=== PATIENT | female | born 1935 | race Caucasian/White ===

== ENCOUNTER 2018-02-14 17:01 | Observation (INO) ==
[2018-02-14 17:42] LABS: Bilirubin,Urine Negative (Negative); Blood,Urine Negative (Negative); Clarity,Urine Clear (Clear); Color,Urine Yellow (Yellow); Glucose,Urine (UA) Normal (Normal); Ketones,Urine Negative (Negative); Leukocyte Esterase,Urine Negative (Negative); Nitrite,Urine Negative (Negative); Protein,Urine Negative (Neg-Trace); Specific Gravity,Urine 1.012 (1.010-1.025); Urobilinogen,Urine Normal (Normal)
--- NOTE | 2018-02-14 18:56 | Emergency Department Note ---
Disposition Clinical Impression: Abdominal pain Qualifiers: Abdominal location: unspecified location Qualified Code(s): R10.9 - Unspecified abdominal pain Fatigue Qualifiers: Fatigue type: unspecified Qualified Code(s): R53.83 - Other fatigue Disposition: Still a Patient Condition: Undetermined Referrals: Radha Purcell, PhD [Primary Care Provider] - Time of Disposition: 18:57 Abdominal Pain HPI - General Chief Complaint: ED Abdominal Pain Stated Complaint: UTI, abd pain Time Seen by Provider: 02/14/18 18:34 Source: patient, family Mode of arrival: ambulatory Limitations: no limitations Nursing Notes Reviewed: Yes Vital Signs Reviewed: Yes - History of Present Illness HPI Narrative: Patient is an 82-year-old female with past medical history of ND, hypertension, hyperlipidemia, diabetes. She presents today due to generalized abdominal pain , distention, concern for UTI. Patient says that for the past 5-6 days, she has had generalized abdominal discomfort worse in the lower abdomen. She says the pain is a dull ache, no radiation anywhere else. She states that she was evaluated by urgent care approximately 5 days ago and had a UA. She was placed on Bactrim and Zofran for UTI. Urine was sent for culture. She admits to occasional nausea but denies any vomiting, diarrhea. She did have some constipation but states that she took a laxative and had a bowel movement this morning. No blood in stool. Denies any current dysuria, hematuria. However, she has continued abdominal pain, distention. Pain Scale: 0 - Related Data Home Medications Medication Instructions Recorded Confirmed ALPRAZolam 02/10/18 Atorvastatin 02/10/18 GlipiZIDE 02/10/18 Lantus 02/10/18 Lasix 02/10/18 Metoprolol 02/10/18 Previous Rx's Medication Instructions Recorded Ondansetron ODT [Zofran ODT] 4 mg SL Q8HR PRN #10 tab.rapdis 02/10/18 Sulfamethoxazole/Trimeth DS 1 each PO BID 10 Days #20 tablet 02/10/18 [Bactrim DS] Allergies Allergy/AdvReac Type Severity Reaction Status Date / Time Penicillins Allergy Anaphylaxis Verified 02/10/18 11:39 All systems ED: reviewed and negative except as stated. Constitutional: Denies: fever Cardiovascular: Denies: chest pain, palpitations Respiratory: Denies: cough, dyspnea, wheezes Gastrointestinal: Reports: abdominal pain, other (abd distention). Denies: nausea, vomiting, diarrhea, constipation, hematemesis, melena, hematochezia Genitourinary: Denies: urgency, dysuria, frequency, hematuria Integumentary: Denies: rash Neurological: Denies: headache, weakness, numbness, paresthesias Endocrine: Reports: fatigue Abdominal Pain PMH - Past Medical History Medical history: Reports: CHF, diabetes, hyperlipidemia, myocardial infarction - Social History Smoking status: Never smoker Alcohol use: Reports: none Drug use: Reports: none Physical Exam - General Limitations: no limitations General appearance: alert, in no apparent distress - Head Head exam: atraumatic, normocephalic, normal inspection - Eye Eye exam: Present: normal appearance, PERRL, EOMI - ENT ENT exam: normal exam, normal oropharynx, mucous membranes moist - Neck Neck exam: Present: normal inspection, full ROM, trachea midline - Chest Chest inspection: Present: normal inspection, symmetric chest wall rise - Respiratory Respiratory exam: Present: normal lung sounds bilaterally - Cardiovascular Cardiovascular exam: Present: regular rate, normal rhythm, normal heart sounds - Abdominal Exam Abdominal exam: Present: soft, tenderness (generalized, mild to moderate tenderness), distention. Absent: guarding, rebound, rigidity Course Course Narrative: Currently concern for UTI versus other intra-abdominal etiology such as diverticulitis or other bowel process. We will obtain basic blood work, LFTs, lipase, CT abdomen and pelvis. We will also obtain EKG, chest x-ray, troponin due to complaints of generalized fatigue, she does have a history of CHF and previous ND. Will sign out to Dr Medrano and Dr. Roca for further care and dispo. Vital Signs Temperature 98.2 F 02/14/18 17:12 Pulse Rate 59 02/14/18 17:12 Respiratory Rate 16 02/14/18 17:12 Blood Pressure 109/64 02/14/18 17:12 O2 Sat by Pulse Oximetry 94 02/14/18 17:12 Temperature 98.2 F 02/14/18 17:12 Pulse Rate 59 02/14/18 17:12 Respiratory Rate 16 02/14/18 17:12 Blood Pressure 109/64 02/14/18 17:12 O2 Sat by Pulse Oximetry 94 02/14/18 17:12 Oxygen Delivery Oxygen Delivery Room Air Abdominal Pain - MDM Narrative Medical decision making narrative: Currently concern for UTI versus other intra-abdominal etiology such as diverticulitis or other bowel process. We will obtain basic blood work, LFTs, lipase, CT abdomen and pelvis. We will also obtain EKG, chest x-ray, troponin due to complaints of generalized fatigue, she does have a history of CHF and previous ND. Will sign out to Dr Medrano and Dr. Roca for further care and dispo. - Medical Records Medical records reviewed: Yes I reviewed the patient's medical records. - Lab Data Lab Results 02/14/18 Range/Units 17:34 Urine Color Yellow (Yellow) Urine Clarity Clear (Clear) Urine pH 6.0 (5.0-8.0) pH Units Ur Specific [place] 1.012 (1.010-1.025) Urine Protein Negative (Neg-Trace) mg/dL Urine Glucose (UA) Normal (Normal) mg/dL Urine Ketones Negative (Negative) mg/dL Urine Blood Negative (Negative) Urine Nitrite Negative (Negative) Urine Bilirubin Negative (Negative) Urine Urobilinogen Normal (Normal) mg/dL Ur Leukocyte Esterase Negative (Negative) S.B.A.R. - S.B.A.R. Situation: Demographics, MOA Background: Presenting Complaint, Relevant PMH, Meds, & Allergies Assessment: Vital Signs, Course and respsone to treatment, Exam Concerns, Patient/Family Expectation, Pertinant Lab Results, Outstanding Labs Recommendation: Barrier(s) to disposition, Recommendation based on pending studies, treatments, or consults S.B.A.R. Report Given to: Dr. Roca, Dr. Medrano S.B.A.R. Repor Time: 18:57
[2018-02-14 19:35] LABS: Basophils % 0.2 %; Eosinophils # 0.3 K/mcL (0.0-0.6); Eosinophils % 3.2 %; Hematocrit 31.8 % (35.3-44.9); Hemoglobin 10.7 g/dL (11.5-15.4); Immature Granulocytes % 0.3 % (0-4); Lymphocytes # 2.2 K/mcL (0.6-4.6); Lymphocytes % 24.4 %; Mean Corpuscular HGB Conc 33.6 g/dL (31.6-35.5); Mean Corpuscular Hemoglobin 31.2 pg (28.0-33.3); Mean Corpuscular Volume 92.7 fL (83.0-100.0); Mean Platelet Volume 10.2 fL (9.4-12.4); Monocytes # 0.7 K/mcL (0.0-1.3); Monocytes % 7.4 %; Neutrophils # 5.7 K/mcL (1.6-8.9); Platelet Count 250 K/mcL (140-400); Red Blood Count 3.43 M/mcL (3.82-4.97); Red Cell Distribution Width 13.8 % (11.5-14.5); Segmented Neutrophils % 64.5 %
[2018-02-14 19:59] LABS: Troponin I < 0.03 ng/mL (< 0.04)
[2018-02-14 20:00] LABS: Alanine Aminotransferase 25 Units/L (7-52); Albumin 4.1 g/dL (3.5-5.7); Albumin/Globulin Ratio 1.5 (1.1-2.2); Alkaline Phosphatase 43 Units/L (34-104); Amylase 112 Units/L (29-103); Aspartate Amino Transferase 27 Units/L (13-39); BUN/Creatinine Ratio 15 (6-26); Bilirubin,Indirect 0.3 mg/dL (0.0-1.2); Bilirubin,Total 0.3 mg/dL (0.3-1.0); Blood Urea Nitrogen 24 mg/dL (8-23); Calcium 9.8 mg/dL (8.6-10.3); Carbon Dioxide 23 mEq/L (23-29); Chloride 105 mEq/L (98-107); Globulin 2.8 g/dL (2.4-3.5); Glucose 141 mg/dL (70-105); Lipase 292 Units/L (11-82); Osmolality,Calculated 286 (280-300); Potassium 4.2 mEq/L (3.5-5.1); Sodium 135 mEq/L (136-145); Total Protein 6.9 g/dL (6.4-8.9); eGFR For Non-African Americans 31 (> 60)
--- NOTE | 2018-02-14 20:16 | Emergency Department Note ---
Disposition Clinical Impression: Pancreatitis Abdominal pain Qualifiers: Abdominal location: unspecified location Qualified Code(s): R10.9 - Unspecified abdominal pain Fatigue Qualifiers: Fatigue type: unspecified Qualified Code(s): R53.83 - Other fatigue Disposition: Admitted As Inpatient Condition: Undetermined Referrals: Radha Purcell, PhD [Primary Care Provider] - Forms: ED Satisfaction Letter, Work/School Release Time of Disposition: 20:15 Abdominal Pain HPI - General Chief Complaint: ED Abdominal Pain Stated Complaint: UTI, abd pain Time Seen by Provider: 02/14/18 18:34 Source: patient, family Mode of arrival: ambulatory - History of Present Illness Pain Scale: 0 - Related Data Allergies Allergy/AdvReac Type Severity Reaction Status Date / Time Penicillins Allergy Anaphylaxis Verified 02/10/18 11:39 Constitutional: Denies: fever Cardiovascular: Denies: chest pain, palpitations Respiratory: Denies: cough, dyspnea, wheezes Gastrointestinal: Reports: abdominal pain, other (abd distention). Denies: nausea, vomiting, diarrhea, constipation, hematemesis, melena, hematochezia Genitourinary: Denies: urgency, dysuria, frequency, hematuria Integumentary: Denies: rash Neurological: Denies: headache, weakness, numbness, paresthesias Endocrine: Reports: fatigue Abdominal Pain PMH - Past Medical History Medical history: Reports: CHF, diabetes, hyperlipidemia, myocardial infarction - Social History Smoking status: Never smoker Alcohol use: Reports: none Drug use: Reports: none Physical Exam - General Limitations: no limitations General appearance: alert, in no apparent distress Course - Reevaluation(s) Reevaluation #1: Patient signed out from Dr. Helton and Annette pending workup. Patient presenting with a few day history of abdominal pain. Was treated as an outpatient for urinary tract infection. States her urinary symptoms, etc. resolved but she still has epigastric abdominal pain. Lab work showed an elevated amylase and lipase consistent with pancreatitis. The non-contrast CT of her abdomen did not show any stranding or pancreatic necrosis or other abdominal abnormality. She has a history of CHF and insulin-dependent diabetes. The patient will be admitted for likely MRCP to rule out underlying mass. We will also admit for pain control and further workup of her abdominal distention. Accepted by the hospitalist service. Time: 20:14 Vital Signs Temperature 98.2 F 02/14/18 17:12 Pulse Rate 59 02/14/18 17:12 Respiratory Rate 16 02/14/18 17:12 Blood Pressure 109/64 02/14/18 17:12 O2 Sat by Pulse Oximetry 94 02/14/18 17:12 Temperature 98.2 F 02/14/18 17:12 Pulse Rate 53 02/14/18 19:55 Respiratory Rate 18 02/14/18 19:55 Blood Pressure 123/61 02/14/18 19:55 O2 Sat by Pulse Oximetry 93 02/14/18 19:55 Oxygen Delivery Oxygen Delivery Room Air Abdominal Pain - Lab Data Result diagrams: 02/14/18 19:15 02/14/18 19:15 Lab Results 02/14/18 02/14/18 02/14/18 Range/Units 17:34 19:15 19:15 WBC 8.8 (4.3-11.1) K/mcL RBC 3.43 L (3.82-4.97) M/mcL Hgb 10.7 L (11.5-15.4) g/dL Hct 31.8 L (35.3-44.9) % MCV 92.7 (83.0-100.0) fL MCH 31.2 (28.0-33.3) pg MCHC 33.6 (31.6-35.5) g/dL RDW 13.8 (11.5-14.5) % Plt Count 250 (140-400) K/mcL MPV 10.2 (9.4-12.4) fL Immature Gran % 0.3 (0-4) % Seg Neutrophils % 64.5 % Lymphocytes % 24.4 % Monocytes % 7.4 % Eosinophils % 3.2 % Basophils % 0.2 % Neutrophils # 5.7 (1.6-8.9) K/mcL Lymphocytes # 2.2 (0.6-4.6) K/mcL Monocytes # 0.7 (0.0-1.3) K/mcL Eosinophils # 0.3 (0.0-0.6) K/mcL Basophils # 0.0 (0.0-0.2) K/mcL Sodium 135 L (136-145) mEq/L Potassium 4.2 (3.5-5.1) mEq/L Chloride 105 (98-107) mEq/L Carbon Dioxide 23 (23-29) mEq/L BUN 24 H (8-23) mg/dL Creatinine 1.58 H (0.60-1.20) mg/dL Est GFR ( Amer) 38 L (> 60) Est GFR (Non-Af Amer) 31 L (> 60) BUN/Creatinine Ratio 15 (6-26) Glucose 141 H (70-105) mg/dL Calculated Osmolality 286 (280-300) Calcium 9.8 (8.6-10.3) mg/dL Total Bilirubin 0.3 (0.3-1.0) mg/dL Direct Bilirubin 0.0 (0.0-0.2) mg/dL Indirect Bilirubin 0.3 (0.0-1.2) mg/dL AST 27 (13-39) Units/L ALT 25 (7-52) Units/L Alkaline Phosphatase 43 (34-104) Units/L Troponin I < 0.03 (< 0.04) ng/mL Serum Total Protein 6.9 (6.4-8.9) g/dL Albumin 4.1 (3.5-5.7) g/dL Globulin 2.8 (2.4-3.5) g/dL Albumin/Globulin Ratio 1.5 (1.1-2.2) Amylase 112 H (29-103) Units/L Lipase 292 H (11-82) Units/L Urine Color Yellow (Yellow) Urine Clarity Clear (Clear) Urine pH 6.0 (5.0-8.0) pH Units Ur Specific [place] 1.012 (1.010-1.025) Urine Protein Negative (Neg-Trace) mg/dL Urine Glucose (UA) Normal (Normal) mg/dL Urine Ketones Negative (Negative) mg/dL Urine Blood Negative (Negative) Urine Nitrite Negative (Negative) Urine Bilirubin Negative (Negative) Urine Urobilinogen Normal (Normal) mg/dL Ur Leukocyte Esterase Negative (Negative)
--- NOTE | 2018-02-14 20:19 | Emergency Department Note ---
Disposition Clinical Impression: Pancreatitis Abdominal pain Qualifiers: Abdominal location: unspecified location Qualified Code(s): R10.9 - Unspecified abdominal pain Fatigue Qualifiers: Fatigue type: unspecified Qualified Code(s): R53.83 - Other fatigue Disposition: Admitted As Inpatient Condition: Undetermined Referrals: Radha Purcell, PhD [Primary Care Provider] - Forms: ED Satisfaction Letter, Work/School Release General Adult HPI - General Chief complaint: ED Abdominal Pain Stated complaint: UTI, abd pain Time Seen by Provider: 02/14/18 18:34 Source: patient, family Mode of arrival: ambulatory Limitations: no limitations - History of Present Illness Pain Scale: 0 - Related Data Allergies Allergy/AdvReac Type Severity Reaction Status Date / Time Penicillins Allergy Anaphylaxis Verified 02/10/18 11:39 Constitutional: Denies: fever Cardiovascular: Denies: chest pain, palpitations Respiratory: Denies: cough, dyspnea, wheezes Gastrointestinal: Reports: abdominal pain, other (abd distention). Denies: nausea, vomiting, diarrhea, constipation, hematemesis, melena, hematochezia Genitourinary: Denies: urgency, dysuria, frequency, hematuria Integumentary: Denies: rash Neurological: Denies: headache, weakness, numbness, paresthesias Endocrine: Reports: fatigue Past Medical History - Past Medical History Medical history: Reports: CHF, diabetes, hyperlipidemia, myocardial infarction - Social History Smoking Status: Never smoker Smokeless Tobacco Status: No Alcohol use: Reports: none Drug use: Reports: none Physical Exam - General Limitations: no limitations General appearance: alert, in no apparent distress Course Vital Signs Temperature 98.2 F 02/14/18 17:12 Pulse Rate 59 02/14/18 17:12 Respiratory Rate 16 02/14/18 17:12 Blood Pressure 109/64 02/14/18 17:12 O2 Sat by Pulse Oximetry 94 02/14/18 17:12 Temperature 98.2 F 02/14/18 17:12 Pulse Rate 53 02/14/18 19:55 Respiratory Rate 18 02/14/18 19:55 Blood Pressure 123/61 02/14/18 19:55 O2 Sat by Pulse Oximetry 93 02/14/18 19:55 Oxygen Delivery Oxygen Delivery Room Air Medical Decision Making - Lab Data Result diagrams: 02/14/18 19:15 02/14/18 19:15 Lab Results 02/14/18 02/14/18 02/14/18 Range/Units 17:34 19:15 19:15 WBC 8.8 (4.3-11.1) K/mcL RBC 3.43 L (3.82-4.97) M/mcL Hgb 10.7 L (11.5-15.4) g/dL Hct 31.8 L (35.3-44.9) % MCV 92.7 (83.0-100.0) fL MCH 31.2 (28.0-33.3) pg MCHC 33.6 (31.6-35.5) g/dL RDW 13.8 (11.5-14.5) % Plt Count 250 (140-400) K/mcL MPV 10.2 (9.4-12.4) fL Immature Gran % 0.3 (0-4) % Seg Neutrophils % 64.5 % Lymphocytes % 24.4 % Monocytes % 7.4 % Eosinophils % 3.2 % Basophils % 0.2 % Neutrophils # 5.7 (1.6-8.9) K/mcL Lymphocytes # 2.2 (0.6-4.6) K/mcL Monocytes # 0.7 (0.0-1.3) K/mcL Eosinophils # 0.3 (0.0-0.6) K/mcL Basophils # 0.0 (0.0-0.2) K/mcL Sodium 135 L (136-145) mEq/L Potassium 4.2 (3.5-5.1) mEq/L Chloride 105 (98-107) mEq/L Carbon Dioxide 23 (23-29) mEq/L BUN 24 H (8-23) mg/dL Creatinine 1.58 H (0.60-1.20) mg/dL Est GFR ( Amer) 38 L (> 60) Est GFR (Non-Af Amer) 31 L (> 60) BUN/Creatinine Ratio 15 (6-26) Glucose 141 H (70-105) mg/dL Calculated Osmolality 286 (280-300) Calcium 9.8 (8.6-10.3) mg/dL Total Bilirubin 0.3 (0.3-1.0) mg/dL Direct Bilirubin 0.0 (0.0-0.2) mg/dL Indirect Bilirubin 0.3 (0.0-1.2) mg/dL AST 27 (13-39) Units/L ALT 25 (7-52) Units/L Alkaline Phosphatase 43 (34-104) Units/L Troponin I < 0.03 (< 0.04) ng/mL Serum Total Protein 6.9 (6.4-8.9) g/dL Albumin 4.1 (3.5-5.7) g/dL Globulin 2.8 (2.4-3.5) g/dL Albumin/Globulin Ratio 1.5 (1.1-2.2) Amylase 112 H (29-103) Units/L Lipase 292 H (11-82) Units/L Urine Color Yellow (Yellow) Urine Clarity Clear (Clear) Urine pH 6.0 (5.0-8.0) pH Units Ur Specific [place] 1.012 (1.010-1.025) Urine Protein Negative (Neg-Trace) mg/dL Urine Glucose (UA) Normal (Normal) mg/dL Urine Ketones Negative (Negative) mg/dL Urine Blood Negative (Negative) Urine Nitrite Negative (Negative) Urine Bilirubin Negative (Negative) Urine Urobilinogen Normal (Normal) mg/dL Ur Leukocyte Esterase Negative (Negative) Attestation Statement - Attestation Attestation: I examined this patient and my medical decision-making was reviewed with the Resident Physician. I agree with the documented findings, disposition and treatment plan as described except to the extent set forth below. Patient presents to the ED with abdominal pain and bloating. She was signed out by Dr. Helton. CT does not show acute process. She has had an elevated amylase and lipase. Patient will be admitted for further workup.
[2018-02-14] MEDS ORDERED: 0.9 % Sodium Chloride 500 ML IVC ONE (21:08)
[2018-02-14] MEDS ORDERED: 0.9 % Sodium Chloride 1,000 ML IVC SCH (21:15)
[2018-02-15] MEDS ORDERED: 0.9 % Sodium Chloride 1,000 ML IVC SCH ×2 (01:15→01:47)
[2018-02-15] MEDS ORDERED: ALPRAZolam 0.5 MG TABLET PO PRN (01:38)
[2018-02-15] MEDS ORDERED: INSULIN GLARGINE HUM REC ANLOG U SQ SCH (01:45)
[2018-02-15] MEDS ORDERED: [UNRECOGNIZED DRUG - OTHER] SQ SCH (01:45)
[2018-02-15] MEDS ORDERED: Dextrose Gel 15 GM/37.5 ML TUBE PO PRN ×2 (01:48)
[2018-02-15] MEDS ORDERED: D5% in Water 1,000 ML IVC PRN (01:48)
[2018-02-15] MEDS ORDERED: *HR* Dextrose 50 % in Water (Syg) 50 ML SYRINGE IVP PRN (01:48)
[2018-02-15] MEDS ORDERED: Naloxone 0.4 MG/ML INJ IVP PRN (02:15)
[2018-02-15] MEDS ORDERED: *HR* HYDROcodone/Acet 5/325 mg TABLET PO PRN (02:15)
[2018-02-15] MEDS ORDERED: Acetaminophen 325 MG TABLET PO PRN (02:15)
--- NOTE | 2018-02-15 02:23 | Internal Med History&Physical ---
Date of Encounter: 02/15/18 Time of Encounter: 02:20 Internal Medicine - H&P: HPI Chief complaint: "Abdominal pain" Admitted From: Emergency Dept Plans for Post Hospital Care: Home History of present illness: Ms. Frankel is a 82 year old female who presented to ED today for abdominal pain. She states that she recently went to ED in [place] several day ago for same symptoms and was diagnosed with UTI. She was sent home on Bactrim and zofran. She completed course of Bactrim. She started having abdominal pain again today , so her daughter brought her to ED here. She states that she had bowel movement earlier, and abdominal pain is now completely resolved. She denies fever, chills, chest pain, SOB, nausea, vomiting, and dysuria. In the ED, CT abdomen was unremarkable for acute pathology. UA was unremarkable. Labwork was notable for increased creatinine to 1.58, increase amylase to 112, and increased lipase to 292. She denies any prior history of kidney disease or pancreatitis. She has no complaints at this time. Past Med Surg Social Fam HX - Past Medical History Attestation: Yes The following information was validated with the patient. Source: patient Medical history: CHF, diabetes, hyperlipidemia, myocardial infarction Psychiatric history: no psych history - Past Surgical History Surgical History: appendectomy, hysterectomy Additional surgical history: heart stent x1 - Social History Smoking Status: Never smoker Smokeless Tobacco Status: No Alcohol use: none Drug use: none - Family History Mother Hx Family Cancer: Yes (uterine) Father Hx Family Cancer: Yes (colon) - Additional Family History Additional family history: Family history verified with patient. Internal Medicine - H&P: Meds ALPRAZolam [Xanax 0.5 MG Tablet] 0.5 mg PO TID PRN 02/14/18 [History] Ascorbic Acid [Vitamin C] 500 mg PO DAILY 02/14/18 [History] Aspirin Enteric Coated [Aspirin EC] 81 mg PO DAILY 02/14/18 [History] Atorvastatin [Lipitor] 40 mg PO HS 02/14/18 [History] Cholecalciferol (D-3) [Vitamin D] 5,000 unit PO DAILY 02/14/18 [History] Fish Oil/Dha/Epa [Fish Oil 1,200 mg Fish Oil] 1 cap PO BID 02/14/18 [History] Furosemide [Lasix] 20 mg PO DAILY 02/14/18 [History] Insulin Glargine,Hum.rec.anlog [Lantus Solostar] 5 units SQ BID 02/14/18 [ History] Metoprolol [Lopressor] 25 mg PO DAILY 02/14/18 [History] Sitagliptin Phosphate [Januvia] 50 mg PO DAILY 02/14/18 [History] Vitamin B Complex Vit C No.4 [Super B Complex] 1 tab PO DAILY 02/14/18 [History] glipiZIDE [Glipizide] 10 mg PO BID 02/14/18 [History] 3 Allergy/AdvReac Type Severity Reaction Status Date / Time Penicillins Allergy Anaphylaxis Verified 02/10/18 11:39 All Systems PM: A 10-system review of systems was performed and is negative for pertinent findings except as documented above in the HPI. - Constitutional Vitals: Temp Pulse Resp BP Pulse Ox 97.7 F 56 18 121/54 97 02/15/18 00:06 02/15/18 00:06 02/15/18 00:06 02/15/18 00:06 02/15/18 00:06 General appearance: Present: cooperative, A&O X 3, pleasant, no acute distress, answers questions appropriately - Head Head exam: Present: atraumatic, normocephalic - Eye Eye exam: Present: EOMI, PERRL. Absent: conjunctival injection, nystagmus, scleral icterus - ENT ENT exam: Present: mucous membranes moist, normal external ear exam, normal oropharynx - Neck Neck exam general surgery: Present: supple, trachea midline. Absent: lymphadenopathy, tenderness, thyromegaly - Respiratory Respiratory exam: Present: CTAB. Absent: accessory muscle use, rales, rhonchi, wheezes Additional comments: Normal WOB - Cardiovascular Cardiovascular exam: Present: RRR, +S1, +S2. Absent: diastolic murmur, gallop, rubs, systolic murmur Additional comments: No BLE edema - GI/Abdominal GI/Abdominal exam: Present: normal bowel sounds, soft. Absent: distended, guarding, hepatomegaly, mass, rebound, splenomegaly, tenderness - Neurological Exam Neurological exam: Present: alert, CN II-XII intact, oriented X3, no focal deficits, strengths equal and symetr throughout. Absent: motor sensory deficit , facial droop, speech deficit - Psychiatric Psychiatric exam: Present: normal affect, normal mood. Absent: agitated, anxious, depressed - Skin Skin exam: Present: dry, intact, warm. Absent: cyanosis, rash Internal Med - H&P Results - Labs CBC & Chem 7: 02/14/18 19:15 02/14/18 19:15 - Assessment and plan (1) Pancreatitis Current Visit: Yes Status: Suspected Assessment and plan: Suspected due to abdominal pain and elevated amylase/lipase. CT abdomen unremarkable. Possibly secondary to Bactrim use. Currently without pain, nausea, and vomiting. NPO except PO medications; trial of diet in AM. Start IV NS at 75 ml/hr; monitor fluid status closely given history of CHF. Pain control with tylenol and norco PRN. Zofran IV PRN for nausea/vomiting. Recheck labwork in AM. Qualifiers: Chronicity: acute Pancreatitis type: drug induced Acute pancreatitis complication: no infection or necrosis Qualified Code(s): K85.30 - Drug induced acute pancreatitis without necrosis or infection (2) Acute kidney injury Current Visit: Yes Status: Acute Assessment and plan: Continue gentle hydration as per above. Recheck BMP in AM. (3) Type 2 diabetes mellitus without complication Current Visit: Yes Status: Chronic Assessment and plan: Start accuchecks and moderate dose SSI Q6H. Continue home long-acting insulin. Hold home PO DM medications. 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 Qualifiers: Heart failure type: unspecified Qualified Code(s): I50.9 - Heart failure, unspecified (5) CAD (coronary artery disease) Current Visit: Yes Status: Chronic Assessment and plan: Continue home medications. Qualifiers: Coronary Disease-Associated Artery/Lesion type: unspecified vessel or lesion type [place] vs. transplanted heart: unspecified whether [place] or transplanted heart Associated angina: angina presence unspecified Qualified Code(s): I25.10 - Atherosclerotic heart disease of [place] coronary artery without angina pectoris (6) HTN (hypertension) Current Visit: Yes Status: Chronic Assessment and plan: Continue home medications. Qualifiers: Hypertension type: essential hypertension Qualified Code(s): I10 - Essential (primary) hypertension (7) Anxiety Current Visit: Yes Status: Chronic Assessment and plan: Continue home medications. (8) DVT prophylaxis Current Visit: Yes Status: Acute Assessment and plan: Start SCDs and lovenox 30 mg SQ QD. - Time Spent With Patient Total time spent is greater than 50% in coordination of care (as documented) at patient's floor/unit and/or counseling patient: less than 15 minutes
[2018-02-15] MEDS ORDERED: Ondansetron 4 MG/2 ML VIAL IVP PRN (02:27)
[2018-02-15] MEDS: Insulin DETEMIR 100 UNIT/ML X5UNITS SQ SCH ×2 (02:58→10:31)
[2018-02-15] MEDS: [Fish Oil 1,200 Mg PO SCH ×2 (02:59→08:25)
[2018-02-15 05:16] LABS: Basophils % 0.5 %; Eosinophils # 0.4 K/mcL (0.0-0.6); Hematocrit 30.1 % (35.3-44.9); Hemoglobin 9.9 g/dL (11.5-15.4); Immature Granulocytes % 0.3 % (0-4); Lymphocytes # 2.1 K/mcL (0.6-4.6); Lymphocytes % 35.3 %; Mean Corpuscular HGB Conc 32.9 g/dL (31.6-35.5); Mean Corpuscular Hemoglobin 30.8 pg (28.0-33.3); Mean Corpuscular Volume 93.8 fL (83.0-100.0); Monocytes # 0.5 K/mcL (0.0-1.3); Neutrophils # 2.8 K/mcL (1.6-8.9); Platelet Count 214 K/mcL (140-400); Red Blood Count 3.21 M/mcL (3.82-4.97); Segmented Neutrophils % 48.9 %
[2018-02-15 05:34] LABS: Potassium 3.9 mEq/L (3.5-5.1)
[2018-02-15] MEDS ORDERED: *HR* Enoxaparin 30 MG/0.3 ML SYRINGE SQ SCH (06:00)
[2018-02-15 06:38] LABS: Estimated Average Glucose 212 mg/dl
[2018-02-15] MEDS: Insulin LISPRO 300 UNITS/3 ML VIAL SQ SCH ×2 (08:14→12:03)
[2018-02-15] MEDS ORDERED: Aspirin Enteric Coated 81 MG Tablet PO SCH (09:00)
[2018-02-15] MEDS ORDERED: Ascorbic Acid 500 MG TABLET PO SCH (09:00)
[2018-02-15] MEDS ORDERED: Cholecalciferol (D-3) 1,000 UNIT TABLET PO SCH (09:00)
[2018-02-15] MEDS ORDERED: Vitamin B Complex/Vit C/Vit E 1 EACH TABLET PO SCH (09:00)
[2018-02-15 11:48] VITALS: BP 130/58
--- NOTE | 2018-02-15 13:07 | Physician Discharge Referral ---
Home Health/Hosp Referral Info Transfer to: Home Health Provider in Charge Post Discharge: PCP (Patient requires nursing needs.) - Respiratory Orders Smoking Cessation: Smoking cessation has been advised. For more information, call the [place] Tobacco Quit Line at 8-579-YNOB-NOW. - Transfer Medications Home Medications: ALPRAZolam [Xanax 0.5 MG Tablet] 0.5 mg PO TID PRN 02/14/18 [History] Ascorbic Acid [Vitamin C] 500 mg PO DAILY 02/14/18 [History] Aspirin Enteric Coated [Aspirin EC] 81 mg PO DAILY 02/14/18 [History] Atorvastatin [Lipitor] 40 mg PO HS 02/14/18 [History] Cholecalciferol (D-3) [Vitamin D] 5,000 unit PO DAILY 02/14/18 [History] Fish Oil/Dha/Epa [Fish Oil 1,200 mg Fish Oil] 1 cap PO BID 02/14/18 [History] Furosemide [Lasix] 20 mg PO DAILY 02/14/18 [History] Insulin Glargine,Hum.rec.anlog [Lantus Solostar] 5 units SQ BID 02/14/18 [ History] Metoprolol [Lopressor] 25 mg PO DAILY 02/14/18 [History] Sitagliptin Phosphate [Januvia] 50 mg PO DAILY 02/14/18 [History] Vitamin B Complex Vit C No.4 [Super B Complex] 1 tab PO DAILY 02/14/18 [History] glipiZIDE [Glipizide] 10 mg PO BID 02/14/18 [History] Allergies/Adverse Reactions: 3 Allergy/AdvReac Type Severity Reaction Status Date / Time Penicillins Allergy Anaphylaxis Verified 02/10/18 11:39 Certification: Further, I certify that my clinical findings support that this patient is homebound (i.e. absences from home require considerable and taxing effort and are for medical reasons or congregational services or infrequently or short duration when for other reasons) because: Homebound Reason: Patient requires assistance of a person or device to safely leave home (Requires nursing needs) Attestation: My signature below is to certify that this patient is under my care and that I, or nurse practitioner, or a physician's construction management assistant working with me, has a face-to -face encounter with this patient.
--- NOTE | 2018-02-15 13:33 | Discharge Summary ---
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 transplanted heart: unspecified whether lummi or transplanted heart Associated angina: angina presence unspecified Qualified Code(s): I25.10 - Atherosclerotic heart disease of [place] coronary artery without angina pectoris (6) HTN (hypertension) Priority: Secondary Status: Chronic Qualifiers: Hypertension type: essential hypertension Qualified Code(s): I10 - Essential (primary) hypertension (7) Anxiety Priority: Secondary Status: Chronic (8) DVT prophylaxis Priority: Secondary Status: Acute Hospital course: Ms. Frankel is a 82 year old female who presented to the emergency department treatment and abdominal pain. Patient was found to have an elevated lipase and was subsequently admitted to observation for pancreatitis. Patient received IV fluids and lipase resolved and the patient abdominal pain resolved. The patient was started on a diet and tolerated it without abdominal pain. CT of the abdomen was negative for any acute findings. Patient was stable for discharge on 02/15/2018. Patient and daughter present and agreeable to plan. All questions answered. Discharge discussed with: patient, family, nurse - Time Spent with Patient Total time spent providing and/or coordinating discharge services: Greater than 30 minutes - Discharge Medications Home Medications: ALPRAZolam [Xanax 0.5 MG Tablet] 0.5 mg PO TID PRN 02/14/18 [History] Ascorbic Acid [Vitamin C] 500 mg PO DAILY 02/14/18 [History] Aspirin Enteric Coated [Aspirin EC] 81 mg PO DAILY 02/14/18 [History] Atorvastatin [Lipitor] 40 mg PO HS 02/14/18 [History] Cholecalciferol (D-3) [Vitamin D] 5,000 unit PO DAILY 02/14/18 [History] Fish Oil/Dha/Epa [Fish Oil 1,200 mg Fish Oil] 1 cap PO BID 02/14/18 [History] Furosemide [Lasix] 20 mg PO DAILY 02/14/18 [History] Insulin Glargine,Hum.rec.anlog [Lantus Solostar] 5 units SQ BID 02/14/18 [ History] Metoprolol [Lopressor] 25 mg PO DAILY 02/14/18 [History] Sitagliptin Phosphate [Januvia] 50 mg PO DAILY 02/14/18 [History] Vitamin B Complex Vit C No.4 [Super B Complex] 1 tab PO DAILY 02/14/18 [History] glipiZIDE [Glipizide] 10 mg PO BID 02/14/18 [History] Allergies/Adverse Reactions: 3 Allergy/AdvReac Type Severity Reaction Status Date / Time Penicillins Allergy Anaphylaxis Verified 02/10/18 11:39 Date of admission: 02/14/18 23:41 Primary care physician: Radha Purcell Consults: 02/15/18 12:51 Consult to Car Sealer [CONS] Routine Reason for Consult: d/c planning - Constitutional Vitals: Temp Pulse Resp BP Pulse Ox 98.3 F 51 14 130/58 94 02/15/18 11:45 02/15/18 11:45 02/15/18 11:45 02/15/18 11:45 02/15/18 11:45 General appearance: Present: cooperative, A&O X 3, pleasant, no acute distress, answers questions appropriately Exam: Constitutional: No acute distress, Alert Psych: AAO x 3 HEENT: NCAT, EOMI Cardio: regular rate and rhythm, +s1s2, no murmurs/rubs/ronchi Resp: clear to ascultation bilaterally, no wheezes/rales/ronchi Abd: soft, non tender/non distended, positive bowel sounds, no gaurding/reboud/ ridgitity; very benign exam Extremities: no clubbing/cyanosis/edema appreciated - Patient Status Disposition: Home Health Service Condition: Good Functional capacity at discharge: independent ambulation Overall status at discharge: patient is back to baseline - Discharge Instructions Follow Up With: Radha Purcell, PhD [Primary Care Provider] - - Diet and Activity Activity: increase activity as tolerated Diet: advance to your usual diet - VTE Documentation of Mechanical Device: Intermittent pneumatic compression device
--- NOTE | 2018-02-15 16:35 | Electrocardiograph Report ---
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
== END 2018-02-15 15:03 | disposition home health service (06) ==
LOC: EMEROO 17:01 → 3NENU 17:01 → SUATTDRO 23:41 → 3NENU 23:49
PROVIDERS: ADMIT Family Medicine; ATTEND Internal Medicine

== ENCOUNTER 2018-03-11 07:59 | Observation (INO) ==
--- NOTE | 2018-03-11 08:37 | Emergency Department Note ---
Disposition Clinical Impression: Fall Qualifiers: Encounter type: initial encounter Qualified Code(s): W19.XXXA - Unspecified fall, initial encounter Syncope Qualifiers: Syncope type: unspecified Qualified Code(s): R55 - Syncope and collapse Anemia Qualifiers: Anemia type: unspecified type Qualified Code(s): D64.9 - Anemia, unspecified Disposition: Admitted As Inpatient Condition: Fair Referrals: Radha Purcell, PhD [Primary Care Provider] - Forms: ED Satisfaction Letter Time of Disposition: 09:34 General Adult HPI - General Chief complaint: ED Dizziness Stated complaint: fall, dizziness Time Seen by Provider: 03/11/18 08:05 Source: patient Mode of arrival: wheelchair Limitations: no limitations Nursing Notes Reviewed: Yes Vital Signs Reviewed: Yes - History of Present Illness HPI Narrative: 82-year-old female with history of diabetes, hypertension presents for evaluation of a fall. Patient describes the fall occurred earlier this morning. States she was otherwise well and was ambulating to the restroom. Patient states that she was in the restroom and felt dizzy and lightheaded. Patient states she may have passed out prior to the fall but did fall back striking her head. Patient denies any prolonged periods of immobility. Denies any chest pain. No shortness of breath. Daughter at bedside states this is been multiple falls within a 2 to three-week time period. Patient states she fell approximately 3 weeks ago and was having persistent right shoulder pain. Patient denies any abdominal pain. No back pain. Patient denies any dizziness currently. No fevers. Denies being on any blood thinners. Patient typically ambulates with a walker. Pain Scale: 0 - Related Data Home Medications Medication Instructions Recorded Confirmed ALPRAZolam [Xanax 0.5 MG Tablet] 0.5 mg PO TID PRN 02/14/18 03/11/18 Ascorbic Acid [Vitamin C] 500 mg PO DAILY 02/14/18 03/11/18 Aspirin Enteric Coated [Aspirin EC] 81 mg PO DAILY 02/14/18 03/11/18 Atorvastatin [Lipitor] 40 mg PO HS 02/14/18 03/11/18 Cholecalciferol (D-3) [Vitamin D] 5,000 unit PO DAILY 02/14/18 03/11/18 Fish Oil/Dha/Epa [Fish Oil 1,200 1 cap PO BID 02/14/18 03/11/18 mg Fish Oil] Furosemide [Lasix] 20 mg PO DAILY 02/14/18 03/11/18 Insulin Glargine,Hum.rec.anlog 5 units SQ BID 02/14/18 03/11/18 [Lantus Solostar] Metoprolol [Lopressor] 25 mg PO DAILY 02/14/18 03/11/18 Vitamin B Complex Vit C No.4 1 tab PO DAILY 02/14/18 03/11/18 [Super B Complex] glipiZIDE [Glipizide] 10 mg PO BID 02/14/18 03/11/18 Allergies Allergy/AdvReac Type Severity Reaction Status Date / Time Penicillins Allergy Anaphylaxis Verified 02/10/18 11:39 All systems ED: reviewed and negative except as stated. Constitutional: Denies: fever Cardiovascular: Denies: chest pain Respiratory: Denies: cough, dyspnea Gastrointestinal: Denies: abdominal pain, nausea, vomiting Past Medical History - Past Medical History Source: patient Medical history: Reports: CHF, diabetes, hyperlipidemia, myocardial infarction Surgical history: Reports: appendectomy, hysterectomy Psychiatric history: Reports: no psych history - Social History Smoking Status: Never smoker Smokeless Tobacco Status: No Alcohol use: Reports: none Drug use: Reports: none Physical Exam - General Limitations: no limitations General appearance: alert, in no apparent distress - Head Head exam: atraumatic, normocephalic, normal inspection - Eye Eye exam: Present: normal appearance, EOMI - ENT ENT exam: normal exam, mucous membranes moist - Neck Neck exam: Present: normal inspection, full ROM. Absent: tenderness - Chest Chest inspection: Present: normal inspection, symmetric chest wall rise - Respiratory Respiratory exam: Present: normal lung sounds bilaterally. Absent: respiratory distress - Cardiovascular Cardiovascular exam: Present: regular rate, normal rhythm. Absent: systolic murmur - Abdominal Exam Abdominal exam: Present: soft, Non-Tender - Extremities Exam Extremities exam: Present: normal inspection. Absent: pedal edema - Expanded Lower Extremity Exam Neurovascular/Tendon exam: Present: normal capillary refill - Back Exam Back exam: Present: normal inspection - Neurological Exam Neurological exam: Present: alert, oriented X3, CN II-XII intact - Expanded Neurological Exam Patient oriented to: Present: person, place, time Speech: Present: fluid speech Cranial nerves: EOM function (II, III, IV, ): Normal, facial sensation (V): Normal, facial palsy (VII): Normal, spinal accessory function (XI): Normal, tongue deviation (XII): Normal Cerebellar function: finger to nose: Normal Motor strength - LUE: 5/5 Motor strength - RUE: 5/5 Motor strength - LLE: 5/5 Motor strength - RLE: 5/5 Coma Scale Eye Opening: Spontaneous Coma Scale Motor Response: Obeys Commands Coma Scale Verbal Response: Oriented Coma Scale Total: 15 - Skin Skin exam: Present: warm, dry, intact, normal color Course Course Narrative: Patient seen and examined. Patient has a nonfocal neurologic exam. Patient's symptoms are mostly consistent with syncope or near syncope in the setting of a fall. Patient will receive CT of the head and cervical spine. Also cardiopulmonary screening evaluation with EKG, chest x-ray troponin. Disposition pending. - Reevaluation(s) Reevaluation #1: Patient seen and examined. Resting currently. Asymptomatic. Discuss ED workup with patient and family at bedside. Patient likely had syncopal episode prior to the fall. Patient will be admitted for further evaluation. Family is agreeable with this plan of care. Time: 09:32 Vital Signs Temperature 97.9 F 03/11/18 08:02 Pulse Rate 67 03/11/18 08:02 Respiratory Rate 15 03/11/18 08:02 Blood Pressure 131/68 03/11/18 08:02 O2 Sat by Pulse Oximetry 96 03/11/18 08:02 Temperature 97.9 F 03/11/18 08:11 Pulse Rate 67 03/11/18 08:11 Respiratory Rate 15 03/11/18 08:11 Blood Pressure 131/68 03/11/18 08:11 O2 Sat by Pulse Oximetry 96 03/11/18 08:11 Oxygen Delivery Oxygen Delivery Room Air Medical Decision Making - [facility] Narrative Medical decision making narrative: 82-year-old female persists for evaluation of a fall. It appears that the patient did have some syncope symptoms prior to the fall. Patient reported dizziness however the patient was feeling more lightheaded. No chest pain. No dyspnea. Patient has had multiple falls within the past 2-3 weeks. Patient does live at home with family. Patient denies any back pain. Patient had a ED evaluation which included CT of the head and cervical spine. Chest x-ray as well as a right shoulder x-ray given right shoulder pain over the past couple weeks. Patient's labs reveal anemia which is likely chronic. Given the syncopal episode as well as recurrent falls the patient will be admitted for further syncope evaluation. - Lab Data Lab results reviewed: Yes I reviewed the patient's lab results. Result diagrams: 03/11/18 08:46 03/11/18 08:46 Lab Results 03/11/18 03/11/18 03/11/18 Range/Units 08:14 08:46 08:46 WBC 8.6 (4.3-11.1) K/mcL RBC 3.60 L (3.82-4.97) M/mcL Hgb 11.2 L (11.5-15.4) g/dL Hct 33.3 L (35.3-44.9) % MCV 92.5 (83.0-100.0) fL MCH 31.1 (28.0-33.3) pg MCHC 33.6 (31.6-35.5) g/dL RDW 13.8 (11.5-14.5) % Plt Count 264 (140-400) K/mcL MPV 10.2 (9.4-12.4) fL Immature Gran % 0.3 (0-4) % Seg Neutrophils % 59.7 % Lymphocytes % 24.6 % Monocytes % 8.0 % Eosinophils % 6.9 % Basophils % 0.5 % Neutrophils # 5.1 (1.6-8.9) K/mcL Lymphocytes # 2.1 (0.6-4.6) K/mcL Monocytes # 0.7 (0.0-1.3) K/mcL Eosinophils # 0.6 (0.0-0.6) K/mcL Basophils # 0.0 (0.0-0.2) K/mcL Sodium 137 (136-145) mEq/L Potassium 4.1 (3.5-5.1) mEq/L Chloride 103 (98-107) mEq/L Carbon Dioxide 28 (23-29) mEq/L BUN 19 (8-23) mg/dL Creatinine 1.06 (0.60-1.20) mg/dL Est GFR ( Amer) > 60 (> 60) Est GFR (Non-Af Amer) 50 L (> 60) BUN/Creatinine Ratio 18 (6-26) Glucose 229 H (70-105) mg/dL Calculated Osmolality 294 (280-300) Calcium 10.0 (8.6-10.3) mg/dL Troponin I < 0.03 (< 0.04) ng/mL B-Natriuretic Peptide (Less than 100) pg/mL Ur Specimen Adequacy See below A Urine Color Yellow (Yellow) Urine Clarity Clear (Clear) Urine pH 5.0 (5.0-8.0) pH Units Ur Specific [place] 1.013 (1.010-1.025) Urine Protein Negative (Neg-Trace) mg/dL Urine Glucose (UA) Normal (Normal) mg/dL Urine Ketones Negative (Negative) mg/dL Urine Blood Negative (Negative) Urine Nitrite Negative (Negative) Urine Bilirubin Negative (Negative) Urine Urobilinogen Normal (Normal) mg/dL Ur Leukocyte Esterase Trace H (Negative) Urine Microscopic RBC 0-3 (0-3) per hpf Urine Microscopic WBC 0-3 (0-3) per hpf Ur Squamous Epith Cells Many H (None-Few) per lpf Urine Bacteria None Seen (None-Few) per hpf Hyaline Casts None Seen (None-Few) per lpf 03/11/18 Range/Units 08:46 WBC (4.3-11.1) K/mcL RBC (3.82-4.97) M/mcL Hgb (11.5-15.4) g/dL Hct (35.3-44.9) % MCV (83.0-100.0) fL MCH (28.0-33.3) pg MCHC (31.6-35.5) g/dL RDW (11.5-14.5) % Plt Count (140-400) K/mcL MPV (9.4-12.4) fL Immature Gran % (0-4) % Seg Neutrophils % % Lymphocytes % % Monocytes % % Eosinophils % % Basophils % % Neutrophils # (1.6-8.9) K/mcL Lymphocytes # (0.6-4.6) K/mcL Monocytes # (0.0-1.3) K/mcL Eosinophils # (0.0-0.6) K/mcL Basophils # (0.0-0.2) K/mcL Sodium (136-145) mEq/L Potassium (3.5-5.1) mEq/L Chloride (98-107) mEq/L Carbon Dioxide (23-29) mEq/L BUN (8-23) mg/dL Creatinine (0.60-1.20) mg/dL Est GFR ( Amer) (> 60) Est GFR (Non-Af Amer) (> 60) BUN/Creatinine Ratio (6-26) Glucose (70-105) mg/dL Calculated Osmolality (280-300) Calcium (8.6-10.3) mg/dL Troponin I (< 0.04) ng/mL B-Natriuretic Peptide 86 (Less than 100) pg/mL Ur Specimen Adequacy Urine Color (Yellow) Urine Clarity (Clear) Urine pH (5.0-8.0) pH Units Ur Specific [place] (1.010-1.025) Urine Protein (Neg-Trace) mg/dL Urine Glucose (UA) (Normal) mg/dL Urine Ketones (Negative) mg/dL Urine Blood (Negative) Urine Nitrite (Negative) Urine Bilirubin (Negative) Urine Urobilinogen (Normal) mg/dL Ur Leukocyte Esterase (Negative) Urine Microscopic RBC (0-3) per hpf Urine Microscopic WBC (0-3) per hpf Ur Squamous Epith Cells (None-Few) per lpf Urine Bacteria (None-Few) per hpf Hyaline Casts (None-Few) per lpf - Radiology Data Radiology results reviewed: Yes I reviewed the patient's radiology results. Cervical Spine CT 03/11/18 08:34 IMPRESSION: 1. No acute fracture of the cervical spine evident. 2. Multilevel degenerative changes of the cervical spine most severe at C5-C6 where there is mild spinal canal stenosis and severe bilateral neural foraminal narrowing. D/ / 03/11/2018 09:34:39 Jaylan Hill MD / [email or web address] Interpreting Provider: Jaylan Hill MD Chest X-Ray 03/11/18 08:34 IMPRESSION: No acute cardiopulmonary process identified. D/ / Jaylan Hill MD / Jaylan Hill MD Interpreting Provider: Jaylan Hill MD Shoulder X-Ray 03/11/18 08:34 IMPRESSION: 1. No acute fracture or dislocation the right shoulder evident. 2. High riding humeral head suggesting a chronic right rotator cuff tear. 3. Moderate degenerative changes of the right acromioclavicular joint. D/ / Jaylan Hill MD / Jaylan Hill MD Interpreting Provider: Jaylan Hill MD Cervical Spine CT 03/11/18 08:34 IMPRESSION: 1. No acute fracture of the cervical spine evident. 2. Multilevel degenerative changes of the cervical spine most severe at C5-C6 where there is mild spinal canal stenosis and severe bilateral neural foraminal narrowing. D/ / 03/11/2018 09:34:39 Jaylan Hill MD / julien Interpreting Provider: Jaylan Hill MD Chest X-Ray 03/11/18 08:34 IMPRESSION: No acute cardiopulmonary process identified. D/ / Jaylan Hill MD / Jaylan Hill MD Interpreting Provider: Jaylan Hill MD Head CT 03/11/18 08:34 IMPRESSION: No acute intracranial abnormality. Mild cerebral atrophy and small vessel ischemic changes in the white matter. D/ / Santhosh Rosario MD / Santhosh Rosario MD Interpreting Provider: Santhosh Rosario MD Shoulder X-Ray 03/11/18 08:34 IMPRESSION: 1. No acute fracture or dislocation the right shoulder evident. 2. High riding humeral head suggesting a chronic right rotator cuff tear. 3. Moderate degenerative changes of the right acromioclavicular joint. D/ / Jaylan Hill MD / Jaylan Hill MD Interpreting Provider: Jaylan Hill MD - EKG Data EKG #1 EKG attestation: Yes I reviewed and interpreted this EKG. EKG shows normal: sinus rhythm Rate: normal Rhythm: NSR [place]/QRS: normal Q waves: v1 Interpretation: no acute changes, unchanged when compared to prior tracing (date ), nonspecific ST-T wave changes S.B.A.R. - S.B.A.Isaiah Situation: Demographics Background: Presenting Complaint Assessment: Vital Signs, Course and respsone to treatment, Patient/Family Expectation Recommendation: Barrier(s) to disposition, Recommendation based on pending studies, treatments, or consults S.B.A.RHodan Report Given to: Dr. Tyrone VillarealARudy Repor Time: 09:41
[2018-03-11 08:43] LABS: Bilirubin,Urine Negative (Negative); Blood,Urine Negative (Negative); Clarity,Urine Clear (Clear); Color,Urine Yellow (Yellow); Glucose,Urine (UA) Normal (Normal); Ketones,Urine Negative (Negative); Leukocyte Esterase,Urine Trace (Negative); Nitrite,Urine Negative (Negative); Protein,Urine Negative (Neg-Trace); Specific Gravity,Urine 1.013 (1.010-1.025); Urobilinogen,Urine Normal (Normal)
[2018-03-11 08:45] LABS: Bacteria,Urine None Seen per hpf (None-Few); Hyaline Casts,Urine None Seen per lpf (None-Few); RBC,Urine 0-3 per hpf (0-3); Squamous Epithelial Cell,Urine Many per lpf (None-Few); WBC,Urine 0-3 per hpf (0-3)
[2018-03-11 08:56] LABS: Basophils % 0.5 %; Eosinophils # 0.6 K/mcL (0.0-0.6); Eosinophils % 6.9 %; Hematocrit 33.3 % (35.3-44.9); Hemoglobin 11.2 g/dL (11.5-15.4); Immature Granulocytes % 0.3 % (0-4); Lymphocytes # 2.1 K/mcL (0.6-4.6); Lymphocytes % 24.6 %; Mean Corpuscular HGB Conc 33.6 g/dL (31.6-35.5); Mean Corpuscular Hemoglobin 31.1 pg (28.0-33.3); Mean Corpuscular Volume 92.5 fL (83.0-100.0); Mean Platelet Volume 10.2 fL (9.4-12.4); Monocytes # 0.7 K/mcL (0.0-1.3); Neutrophils # 5.1 K/mcL (1.6-8.9); Platelet Count 264 K/mcL (140-400); Red Cell Distribution Width 13.8 % (11.5-14.5); Segmented Neutrophils % 59.7 %
[2018-03-11 09:17] LABS: BUN/Creatinine Ratio 18 (6-26); Blood Urea Nitrogen 19 mg/dL (8-23); Carbon Dioxide 28 mEq/L (23-29); Chloride 103 mEq/L (98-107); Glucose 229 mg/dL (70-105); Osmolality,Calculated 294 (280-300); Potassium 4.1 mEq/L (3.5-5.1); Sodium 137 mEq/L (136-145); Troponin I < 0.03 ng/mL (< 0.04); eGFR For Non-African Americans 50 (> 60)
--- NOTE | 2018-03-11 09:37 | Emergency Department Note ---
Disposition Clinical Impression: Anemia Fall Qualifiers: Encounter type: initial encounter Qualified Code(s): W19.XXXA - Unspecified fall, initial encounter Syncope Qualifiers: Syncope type: unspecified Qualified Code(s): R55 - Syncope and collapse Disposition: Admitted As Inpatient Condition: Fair General Adult HPI - General Chief complaint: ED Dizziness Stated complaint: fall, dizziness Time Seen by Provider: 03/11/18 08:05 Source: patient Mode of arrival: wheelchair Limitations: no limitations Nursing Notes Reviewed: Yes Vital Signs Reviewed: Yes - History of Present Illness Pain Scale: 0 - Related Data Home Medications Medication Instructions Recorded Confirmed ALPRAZolam [Xanax 0.5 MG Tablet] 0.5 mg PO TID PRN 02/14/18 03/11/18 Ascorbic Acid [Vitamin C] 500 mg PO DAILY 02/14/18 03/11/18 Aspirin Enteric Coated [Aspirin EC] 81 mg PO DAILY 02/14/18 03/11/18 Atorvastatin [Lipitor] 40 mg PO HS 02/14/18 03/11/18 Cholecalciferol (D-3) [Vitamin D] 5,000 unit PO DAILY 02/14/18 03/11/18 Fish Oil/Dha/Epa [Fish Oil 1,200 1 cap PO BID 02/14/18 03/11/18 mg Fish Oil] Furosemide [Lasix] 20 mg PO DAILY 02/14/18 03/11/18 Insulin Glargine,Hum.rec.anlog 5 units SQ BID 02/14/18 03/11/18 [Lantus Solostar] Metoprolol [Lopressor] 25 mg PO DAILY 02/14/18 03/11/18 Vitamin B Complex Vit C No.4 1 tab PO DAILY 02/14/18 03/11/18 [Super B Complex] glipiZIDE [Glipizide] 10 mg PO BID 02/14/18 03/11/18 Allergies Allergy/AdvReac Type Severity Reaction Status Date / Time Penicillins Allergy Anaphylaxis Verified 02/10/18 11:39 Constitutional: Denies: fever Cardiovascular: Denies: chest pain Respiratory: Denies: cough, dyspnea Gastrointestinal: Denies: abdominal pain, nausea, vomiting Past Medical History - Past Medical History Medical history: Reports: CHF, diabetes, hyperlipidemia, myocardial infarction Surgical history: Reports: appendectomy, hysterectomy Psychiatric history: Reports: no psych history - Social History Smoking Status: Never smoker Smokeless Tobacco Status: No Alcohol use: Reports: none Drug use: Reports: none Physical Exam - General Limitations: no limitations General appearance: alert, in no apparent distress Course Vital Signs Temperature 97.9 F 03/11/18 08:02 Pulse Rate 67 03/11/18 08:02 Respiratory Rate 15 03/11/18 08:02 Blood Pressure 131/68 03/11/18 08:02 O2 Sat by Pulse Oximetry 96 03/11/18 08:02 Temperature 97.9 F 03/11/18 08:11 Pulse Rate 57 03/11/18 09:57 Respiratory Rate 18 03/11/18 09:57 Blood Pressure 133/69 03/11/18 09:57 O2 Sat by Pulse Oximetry 97 03/11/18 09:57 Oxygen Delivery Oxygen Delivery Room Air Medical Decision Making - MDM Narrative Medical decision making narrative: Cervical Spine CT 03/11/18 08:34 IMPRESSION: 1. No acute fracture of the cervical spine evident. 2. Multilevel degenerative changes of the cervical spine most severe at C5-C6 where there is mild spinal canal stenosis and severe bilateral neural foraminal narrowing. D/ / 03/11/2018 09:34:39 Jaylan Hill MD / [email or web address] Interpreting Provider: Jaylan Hill MD Chest X-Ray 03/11/18 08:34 IMPRESSION: No acute cardiopulmonary process identified. D/ / Jaylan Hill MD / Jaylan Hill MD Interpreting Provider: Jaylan Hill MD Head CT 03/11/18 08:34 IMPRESSION: No acute intracranial abnormality. Mild cerebral atrophy and small vessel ischemic changes in the white matter. D/ / Santhosh Rosario MD / Santhosh Rosario MD Interpreting Provider: Santhosh Rosraio MD Shoulder X-Ray 03/11/18 08:34 IMPRESSION: 1. No acute fracture or dislocation the right shoulder evident. 2. High riding humeral head suggesting a chronic right rotator cuff tear. 3. Moderate degenerative changes of the right acromioclavicular joint. D/ / Jaylan Hill MD / Jaylan Hill MD Interpreting Provider: Jaylan Hill MD 1000 hrs.: Hospitalist as accepted patient for admission. - Lab Data Result diagrams: 03/11/18 08:46 03/11/18 08:46 Lab Results 03/11/18 03/11/18 03/11/18 Range/Units 08:14 08:46 08:46 WBC 8.6 (4.3-11.1) K/mcL RBC 3.60 L (3.82-4.97) M/mcL Hgb 11.2 L (11.5-15.4) g/dL Hct 33.3 L (35.3-44.9) % MCV 92.5 (83.0-100.0) fL MCH 31.1 (28.0-33.3) pg MCHC 33.6 (31.6-35.5) g/dL RDW 13.8 (11.5-14.5) % Plt Count 264 (140-400) K/mcL MPV 10.2 (9.4-12.4) fL Immature Gran % 0.3 (0-4) % Seg Neutrophils % 59.7 % Lymphocytes % 24.6 % Monocytes % 8.0 % Eosinophils % 6.9 % Basophils % 0.5 % Neutrophils # 5.1 (1.6-8.9) K/mcL Lymphocytes # 2.1 (0.6-4.6) K/mcL Monocytes # 0.7 (0.0-1.3) K/mcL Eosinophils # 0.6 (0.0-0.6) K/mcL Basophils # 0.0 (0.0-0.2) K/mcL Sodium 137 (136-145) mEq/L Potassium 4.1 (3.5-5.1) mEq/L Chloride 103 (98-107) mEq/L Carbon Dioxide 28 (23-29) mEq/L BUN 19 (8-23) mg/dL Creatinine 1.06 (0.60-1.20) mg/dL Est GFR ( Amer) > 60 (> 60) Est GFR (Non-Af Amer) 50 L (> 60) BUN/Creatinine Ratio 18 (6-26) Glucose 229 H (70-105) mg/dL Calculated Osmolality 294 (280-300) Calcium 10.0 (8.6-10.3) mg/dL Troponin I < 0.03 (< 0.04) ng/mL B-Natriuretic Peptide (Less than 100) pg/mL Ur Specimen Adequacy See below A Urine Color Yellow (Yellow) Urine Clarity Clear (Clear) Urine pH 5.0 (5.0-8.0) pH Units Ur Specific [place] 1.013 (1.010-1.025) Urine Protein Negative (Neg-Trace) mg/dL Urine Glucose (UA) Normal (Normal) mg/dL Urine Ketones Negative (Negative) mg/dL Urine Blood Negative (Negative) Urine Nitrite Negative (Negative) Urine Bilirubin Negative (Negative) Urine Urobilinogen Normal (Normal) mg/dL Ur Leukocyte Esterase Trace H (Negative) Urine Microscopic RBC 0-3 (0-3) per hpf Urine Microscopic WBC 0-3 (0-3) per hpf Ur Squamous Epith Cells Many H (None-Few) per lpf Urine Bacteria None Seen (None-Few) per hpf Hyaline Casts None Seen (None-Few) per lpf 03/11/18 Range/Units 08:46 WBC (4.3-11.1) K/mcL RBC (3.82-4.97) M/mcL Hgb (11.5-15.4) g/dL Hct (35.3-44.9) % MCV (83.0-100.0) fL MCH (28.0-33.3) pg MCHC (31.6-35.5) g/dL RDW (11.5-14.5) % Plt Count (140-400) K/mcL MPV (9.4-12.4) fL Immature Gran % (0-4) % Seg Neutrophils % % Lymphocytes % % Monocytes % % Eosinophils % % Basophils % % Neutrophils # (1.6-8.9) K/mcL Lymphocytes # (0.6-4.6) K/mcL Monocytes # (0.0-1.3) K/mcL Eosinophils # (0.0-0.6) K/mcL Basophils # (0.0-0.2) K/mcL Sodium (136-145) mEq/L Potassium (3.5-5.1) mEq/L Chloride (98-107) mEq/L Carbon Dioxide (23-29) mEq/L BUN (8-23) mg/dL Creatinine (0.60-1.20) mg/dL Est GFR ( Amer) (> 60) Est GFR (Non-Af Amer) (> 60) BUN/Creatinine Ratio (6-26) Glucose (70-105) mg/dL Calculated Osmolality (280-300) Calcium (8.6-10.3) mg/dL Troponin I (< 0.04) ng/mL B-Natriuretic Peptide 86 (Less than 100) pg/mL Ur Specimen Adequacy Urine Color (Yellow) Urine Clarity (Clear) Urine pH (5.0-8.0) pH Units Ur Specific [place] (1.010-1.025) Urine Protein (Neg-Trace) mg/dL Urine Glucose (UA) (Normal) mg/dL Urine Ketones (Negative) mg/dL Urine Blood (Negative) Urine Nitrite (Negative) Urine Bilirubin (Negative) Urine Urobilinogen (Normal) mg/dL Ur Leukocyte Esterase (Negative) Urine Microscopic RBC (0-3) per hpf Urine Microscopic WBC (0-3) per hpf Ur Squamous Epith Cells (None-Few) per lpf Urine Bacteria (None-Few) per hpf Hyaline Casts (None-Few) per lpf Attestation Statement - Attestation Attestation: Patient seen and evaluated on arrival with family and Dr. Moctezuma, I agree with his evaluation and management plan I supervised the care the patient's stay. Patient had a fall at home. It sounds that she had a syncopal episode prior to the fall. She said she hit the bathtub but no injuries. She had shoulder pain the other day. But none today. Her daughter said this is about the third time this is happened. She did have a syncopal episode so we will do a workup on her and probably admission. She is in agreement with this plan as his family.
[2018-03-11] MEDS ORDERED: Naloxone 0.4 MG/ML INJ IVP PRN (10:28)
[2018-03-11] MEDS ORDERED: Dextrose Gel 15 GM/37.5 ML TUBE PO PRN ×2 (10:33)
[2018-03-11] MEDS ORDERED: *HR* Dextrose 50 % in Water (Syg) 50 ML SYRINGE IVP PRN (10:33)
[2018-03-11] MEDS ORDERED: D5% in Water 1,000 ML IVC PRN (10:33)
--- NOTE | 2018-03-11 11:07 | Internal Med History&Physical ---
Date of Encounter: 03/11/18 Time of Encounter: 10:00 Internal Medicine - H&P: HPI Chief complaint: Dizziness and fall Admitted From: Home Plans for Post Hospital Care: Home History of present illness: Ms. Frankel is a 82 year old female present to ER for dizziness and fall. Past medical history is significant for diabetes, CAD S/P stent, hypertension. Patient felt dizziness in the morning when she went to the bathroom. Patient fell and hit her head. Patient denies loss of consciousness. Pt denies feeling of hungry, palpitation, or diaphoresis. Right after fall, she checked her own blood sugar level, which was 181. Patient has recent frequent fall at home per family. No loss of consciousness. Patient denies chest pain, shortness of breath. Patient has mild nausea earlier but not now. Patient has no vomiting. Patient denies recent diarrhea. In the emergency room, head and C -spine CT has been done, unremarkable. Patient was admitted for near syncope and frequent fall. Past Med Surg Social Fam HX - Past Medical History Medical history: CHF, diabetes, hyperlipidemia, myocardial infarction Psychiatric history: no psych history - Past Surgical History Surgical History: appendectomy, hysterectomy Additional surgical history: stent x1 - Social History Smoking Status: Never smoker Smokeless Tobacco Status: No Alcohol use: none Drug use: none - Family History Mother Hx Family Cancer: Yes (uterine) Father Hx Family Cancer: Yes (colon) Internal Medicine - H&P: Meds ALPRAZolam [Xanax 0.5 MG Tablet] 0.5 mg PO TID PRN 02/14/18 [History] Ascorbic Acid [Vitamin C] 500 mg PO DAILY 02/14/18 [History] Aspirin Enteric Coated [Aspirin EC] 81 mg PO DAILY 02/14/18 [History] Atorvastatin [Lipitor] 40 mg PO HS 02/14/18 [History] Cholecalciferol (D-3) [Vitamin D] 5,000 unit PO DAILY 02/14/18 [History] Fish Oil/Dha/Epa [Fish Oil 1,200 mg Fish Oil] 1 cap PO BID 02/14/18 [History] Furosemide [Lasix] 20 mg PO DAILY 02/14/18 [History] Insulin Glargine,Hum.rec.anlog [Lantus Solostar] 5 units SQ BID 02/14/18 [ History] Metoprolol [Lopressor] 25 mg PO DAILY 02/14/18 [History] Vitamin B Complex Vit C No.4 [Super B Complex] 1 tab PO DAILY 02/14/18 [History] glipiZIDE [Glipizide] 10 mg PO BID 02/14/18 [History] 3 Allergy/AdvReac Type Severity Reaction Status Date / Time Penicillins Allergy Anaphylaxis Verified 02/10/18 11:39 All Systems PM: A 10-system review of systems was performed and is negative for pertinent findings except as documented above in the HPI. - Constitutional Vitals: Temp Pulse Resp BP Pulse Ox 97.1 F L 59 18 143/54 97 03/11/18 10:44 03/11/18 10:44 03/11/18 10:44 03/11/18 10:44 03/11/18 10:44 General appearance: Present: A&O X 3, no acute distress, answers questions appropriately Exam: Patient lays on bed comfortably - Head Head exam: Present: atraumatic, normocephalic - Eye Eye exam: Present: PERRL, conjuntiva pink, sclera anicteric Pupils: Present: PERRL - Neck Neck exam general surgery: Present: supple, trachea midline. Absent: lymphadenopathy - Respiratory Respiratory exam: Present: CTAB. Absent: accessory muscle use, rales, rhonchi, wheezes - Cardiovascular Cardiovascular exam: Present: RRR, +S1, +S2. Absent: diastolic murmur, gallop, rubs, systolic murmur - GI/Abdominal GI/Abdominal exam: Present: normal bowel sounds, soft, no peritoneal signs. Absent: distended, tenderness - Extremities Exam Extremities exam: Present: warm, radial pulses palpable and symmetrical. Absent : calf tenderness, cyanotic, pedal edema - Neurological Exam Neurological exam: Present: CN II-XII intact, oriented X3, no focal deficits. Absent: pronater drift, facial droop, speech deficit - Skin Skin exam: Present: dry, intact Internal Med - H&P Results - Labs CBC & Chem 7: 03/11/18 08:46 03/11/18 08:46 - Assessment and plan (1) Near syncope Current Visit: Yes Status: Acute Assessment and plan: Patient has near syncope. Need to rule out cardio/neuro disease. Patient has no focal neuro deficit. - Continue cardiac monitoring to rule out arrhythmia - Echocardiogram to rule out valve disease, pulmonary hypertension, or other cardio problem. - Duplex carotid to rule out stenosis - Orthostatic vitals to rule out orthostatic hypotension (2) Fall Current Visit: Yes Status: Acute Assessment and plan: PTOT evaluation. Fall precaution Qualifiers: Encounter type: initial encounter Qualified Code(s): W19.XXXA - Unspecified fall, initial encounter (3) DVT prophylaxis Current Visit: No Status: Acute Assessment and plan: Heparin subcutaneously (4) CAD (coronary artery disease) Current Visit: No Status: Chronic Assessment and plan: Denies chest pain. Continue home medications Qualifiers: Coronary Disease-Associated Artery/Lesion type: unspecified vessel or lesion type [place] vs. transplanted heart: unspecified whether [place] or transplanted heart Associated angina: angina presence unspecified Qualified Code(s): I25.10 - Atherosclerotic heart disease of [place] coronary artery without angina pectoris (5) HTN (hypertension) Current Visit: No Status: Chronic Assessment and plan: Continue home medications. Closely monitor BP. Avoid hypotension Qualifiers: Hypertension type: essential hypertension Qualified Code(s): I10 - Essential (primary) hypertension (6) Type 2 diabetes mellitus without complication Current Visit: No Status: Chronic Assessment and plan: Place patient on sliding scale insulin coverage Qualifiers: Diabetes mellitus terminal operator insulin use: with terminal operator use Qualified Code( s): E11.9 - Type 2 diabetes mellitus without complications; Z79.4 - intermediate designer ( current) use of insulin - Time Spent With Patient Total time spent is greater than 50% in coordination of care (as documented) at patient's floor/unit and/or counseling patient: 30 minutes 25 - 35 minutes
[2018-03-11] MEDS: Insulin LISPRO 300 UNITS/3 ML VIAL SQ SCH ×2 (11:55→16:59)
[2018-03-11] MEDS: Acetaminophen 325 MG TABLET PO PRN (13:56)
--- NOTE | 2018-03-11 15:40 | Electrocardiograph Report ---
[place] [id number] Test Date: 2018-03-11 Pat Name: Emily Frankel Department: Room: 3B21 Gender: F [employer] Att[employer]: : 1935 Requested By: Antonio Dai Order Number: [id number] Reading MD: Jd Martinez Measurements Intervals [place] Rate: 56 P: 65 [place]: 154 QRS: -18 QRSD: 104 T: 63 QT: 429 QTc: 414 Interpretive Statements Sinus rhythm Atrial premature complexes Borderline left axis deviation Low voltage, precordial leads Electronically Signed On 03-11-2018 15:38:05 EDT by Jd Martinez
[2018-03-11] MEDS: *HR* Heparin 5,000 UNIT/ML VIAL SQ SCH (16:59)
[2018-03-11] MEDS: ALPRAZolam 0.5 MG TABLET PO PRN (20:18)
[2018-03-11] MEDS: (Fish Oil/Dha/Epa [Fish Oil 1,200 Mg Fish Oil] 1 CAP) PO SCH (20:18)
[2018-03-11] MEDS ORDERED: Insulin LISPRO 300 UNITS/3 ML VIAL SQ SCH (21:00)
[2018-03-12] MEDS: *HR* Heparin 5,000 UNIT/ML VIAL SQ SCH ×2 (05:35→17:54)
[2018-03-12 06:31] LABS: Basophils % 0.6 %; Eosinophils # 0.4 K/mcL (0.0-0.6); Eosinophils % 7.8 %; Hematocrit 30.1 % (35.3-44.9); Hemoglobin 9.8 g/dL (11.5-15.4); Immature Granulocytes % 0.4 % (0-4); Lymphocytes # 1.9 K/mcL (0.6-4.6); Lymphocytes % 35.9 %; Mean Corpuscular HGB Conc 32.6 g/dL (31.6-35.5); Mean Platelet Volume 10.1 fL (9.4-12.4); Monocytes # 0.5 K/mcL (0.0-1.3); Monocytes % 8.4 %; Neutrophils # 2.5 K/mcL (1.6-8.9); Platelet Count 244 K/mcL (140-400); Red Blood Count 3.27 M/mcL (3.82-4.97); Red Cell Distribution Width 13.8 % (11.5-14.5); Segmented Neutrophils % 46.9 %
[2018-03-12 06:54] LABS: Calcium 9.5 mg/dL (8.6-10.3); Potassium 4.1 mEq/L (3.5-5.1)
[2018-03-12] MEDS: Insulin LISPRO 300 UNITS/3 ML VIAL SQ SCH ×4 (08:22→19:31)
[2018-03-12] MEDS: Ascorbic Acid 500 MG TABLET PO SCH (08:24)
[2018-03-12] MEDS: Vitamin B Complex/Vit C/Vit E 1 EACH TABLET PO SCH (08:24)
[2018-03-12] MEDS: Aspirin Enteric Coated 81 MG Tablet PO SCH (08:24)
[2018-03-12] MEDS: (Fish Oil/Dha/Epa [Fish Oil 1,200 Mg Fish Oil] 1 CAP) PO SCH ×2 (08:24→19:57)
[2018-03-12] MEDS: Furosemide 20 MG TABLET PO SCH (08:24)
[2018-03-12] MEDS: ALPRAZolam 0.5 MG TABLET PO PRN ×2 (12:23→19:56)
--- NOTE | 2018-03-12 16:36 | Internal Med Progress Note ---
Hospitalist Progress Note - Encounter Date of Encounter: 03/12/18 Time of Encounter: 16:34 - Subjective Interval History: Patient seen and examined at bedside today. No acute changes overnight. Denies any dizziness, fatigue, chest pain, shortness of breath. Admits to strength deficits in BLE and fatigue with activity as well as troubles with balance - Exam Vitals: Temp Pulse Resp BP Pulse Ox 98.0 F 69 16 138/57 95 03/12/18 16:18 03/12/18 16:18 03/12/18 16:18 03/12/18 16:18 03/12/18 16:18 Exam: PHYSICAL EXAMINATION: GENERAL: The patient is an obese female in no apparent distress. She is alert and oriented x3. HEENT: Head is normocephalic and atraumatic. Extraocular muscles are intact. Pupils are equal, round, and reactive to light and accommodation. Nares appeared normal. Mouth is well hydrated and without lesions. Mucous membranes are moist. Posterior pharynx clear of any exudate or lesions. NECK: Supple. No carotid bruits. No lymphadenopathy or thyromegaly. LUNGS: Clear to auscultation. HEART: Regular rate and rhythm without murmur. ABDOMEN: Soft, nontender, and nondistended. Positive bowel sounds. No hepatosplenomegaly was noted. EXTREMITIES: Without any cyanosis, clubbing, rash, lesions or edema. NEUROLOGIC: Cranial nerves II through XII are grossly intact. PSYCHIATRIC: Flat affect, but denies suicidal or homicidal ideations. SKIN: No ulceration or induration present. - Assessment and Plan (1) Near syncope Current Visit: Yes Status: Acute Assessment and Plan: Patient has near syncope and falls. Likely secondary to deconditioning with decreased functional capacity. Cardio/neuro disease ruled out. Patient has no focal neuro deficit. With her vitals negative orthostasis, TTE with LVEF 60%, mild LV diastolic dysfunction, mild mitral regurg, mild tricuspid regurg, carotid Dopplers reveal right proximal ICA with moderate 40-59% stenosis and left carotid with nonstenotic plaque the patient has not had any arrhythmias on telemetry. Troponin negative 3, EKG without any concerning ST-T wave changes per my assessment. Urinalysis negative for UTI -Continue with PT/OT well and patient was plan to DC to [facility] for rehabilitation -check TSH -Continue monitor on telemetry for any arrhythmias (2) Fall Current Visit: Yes Status: Acute Assessment and Plan: See above (3) Type 2 diabetes mellitus without complication Current Visit: No Status: Chronic Assessment and Plan: Continues to have hyperglycemia per fingerstick blood glucose, Increase SSI to medium coverage and before meals at bedtime Accu-Cheks with diabetic diet (4) CAD (coronary artery disease) Current Visit: No Status: Chronic Assessment and Plan: Denies chest pain. Continue cardiac medications (5) HTN (hypertension) Current Visit: No Status: Chronic Assessment and Plan: History of hypertension, BP stable. Continue anti-HTN medications and titrate as necessary (6) DVT prophylaxis Current Visit: No Status: Acute Assessment and Plan: Heparin sc - Time Spent with Patient Total time spent is greater than 50% in coordination of care (as documented) at patient's floor/unit and/or counseling patient: 25 - 35 minutes Plan of Care Discussed with: patient Internal Medicine: Result - Labs CBC & Chem 7: 03/12/18 06:08 03/12/18 06:08 Labs: Short CBC 03/12/18 Range/Units 06:08 WBC 5.4 (4.3-11.1) K/mcL Hgb 9.8 L (11.5-15.4) g/dL Hct 30.1 L (35.3-44.9) % Plt Count 244 (140-400) K/mcL Neutrophils # 2.5 (1.6-8.9) K/mcL BMP 03/12/18 06:08 Sodium 138 Potassium 4.1 Chloride 104 Carbon Dioxide 27 BUN 23 Creatinine 1.13 Glucose 232 H Calcium 9.5 - Impressions Impressions Echocardiogram 03/11/18 10:32 Impressions: LVEF 60%. Mild left ventricular diastolic dysfunction. RV size is not optimally visualized. Function is normal by Doppler. Mild mitral regurgitation. Mild tricuspid regurgitation. No pulmonary hypertension. One out of 2 bubble studies was weakly positive for interatrial right to left shunting. Left Ventricular Wall Motion: Rest Echo Findings All wall segments showed normal motion. Findings: Study Quality * Technically adequate exam. ECG Findings * Normal sinus rhythm. Left Ventricle * LVEF 60%. * Mild left ventricular diastolic dysfunction. * Normal LV chamber size and wall thickness. * No LVOT obstruction. Right Ventricle * RV size is not optimally visualized. Function is normal by Doppler. Left Atrium * Mildly dilated left atrium. Right Atrium * Normal right atrial size. Aortic Valve * No aortic regurgitation. * Aortic valve not well visualized. * No aortic stenosis. Mitral Valve * Normal mitral valve structure. * No mitral stenosis. * Mild mitral annular calcification * Mild mitral regurgitation. Tricuspid Valve * Tricuspid valve not well visualized. * Mild tricuspid regurgitation. * Estimated RA pressure is 3 mmHg. * Estimated RVSP is 29 mmHg. * No pulmonary hypertension. Pulmonic Valve * Pulmonic valve is not well visualized. * No pulmonic stenosis. * No pulmonic regurgitation. Pulmonary Artery * Pulmonary artery not well visualized. Aorta * Normally sized aortic root. Pericardium * There is no pericardial effusion present. Interatrial Septum * No evidence of PFO by color Doppler. * One out of 2 bubble studies was weakly positive for interatrial right to left shunting. IVC * Normal IVC dimensions and inspiratory collapse. Consult Discharge Plan - Plan Referrals: Radha Purcell, PhD [Primary Care Provider] - (2) Fall Qualifiers: Encounter type: initial encounter Qualified Code(s): W19.XXXA - Unspecified fall, initial encounter (3) Type 2 diabetes mellitus without complication Qualifiers: Diabetes mellitus chcf insulin use: with chcf use Qualified Code(s) : E11.9 - Type 2 diabetes mellitus without complications; Z79.4 - longterm ( current) use of insulin (4) CAD (coronary artery disease) Qualifiers: Coronary Disease-Associated Artery/Lesion type: unspecified vessel or lesion type [place] vs. transplanted heart: unspecified whether [place] or transplanted heart Associated angina: angina presence unspecified Qualified Code(s): I25.10 - Atherosclerotic heart disease of [place] coronary artery without angina pectoris (5) HTN (hypertension) Qualifiers: Hypertension type: essential hypertension Qualified Code(s): I10 - Essential (primary) hypertension
[2018-03-12] MEDS ORDERED: Insulin LISPRO 300 UNITS/3 ML VIAL SQ SCH (21:00)
[2018-03-13] MEDS: *HR* Heparin 5,000 UNIT/ML VIAL SQ SCH ×2 (05:57→17:15)
[2018-03-13] MEDS ORDERED: Insulin LISPRO 300 UNITS/3 ML VIAL SQ SCH ×2 (07:30→21:00)
[2018-03-13] MEDS: Insulin LISPRO 300 UNITS/3 ML VIAL SQ SCH ×3 (08:38→17:15)
[2018-03-13] MEDS: Aspirin Enteric Coated 81 MG Tablet PO SCH (08:41)
[2018-03-13] MEDS: Ascorbic Acid 500 MG TABLET PO SCH (08:41)
[2018-03-13] MEDS: Furosemide 20 MG TABLET PO SCH (08:41)
[2018-03-13] MEDS: Vitamin B Complex/Vit C/Vit E 1 EACH TABLET PO SCH (08:42)
[2018-03-13] MEDS: (Fish Oil/Dha/Epa [Fish Oil 1,200 Mg Fish Oil] 1 CAP) PO SCH (09:12)
--- NOTE | 2018-03-13 15:16 | Internal Med Progress Note ---
Hospitalist Progress Note - Encounter Date of Encounter: 03/13/18 Time of Encounter: 15:11 - Subjective Interval History: Patient seen and examined at bedside today. No acute changes overnight. Continues to deny any dizziness, fatigue, chest pain, shortness of breath. Admits to strength deficits in BLE and fatigue with activity as well as troubles with balance - Exam Vitals: Temp Pulse Resp BP Pulse Ox 97.7 F 74 18 175/74 92 03/13/18 11:59 03/13/18 11:59 03/13/18 11:59 03/13/18 11:59 03/13/18 11:59 Exam: PHYSICAL EXAMINATION: GENERAL: The patient is an obese female in no apparent distress. She is alert and oriented x3. HEENT: Head is normocephalic and atraumatic. Extraocular muscles are intact. Pupils are equal, round, and reactive to light and accommodation NECK: Supple. No carotid bruits. No lymphadenopathy or thyromegaly. LUNGS: Clear to auscultation. HEART: Regular rate and rhythm without murmur. ABDOMEN: Soft, nontender, and nondistended. Positive bowel sounds. No hepatosplenomegaly was noted. EXTREMITIES: Without any cyanosis, clubbing, rash, lesions or edema. NEUROLOGIC: Cranial nerves II through XII are grossly intact. PSYCHIATRIC: Flat affect, but denies suicidal or homicidal ideations. SKIN: No ulceration or induration present. - Assessment and Plan (1) Near syncope Current Visit: Yes Status: Acute Assessment and Plan: Patient has near syncope and falls. Likely secondary to deconditioning with decreased functional capacity. Cardio/neuro disease ruled out. Patient has no focal neuro deficit. With her vitals negative orthostasis, TTE with LVEF 60%, mild LV diastolic dysfunction, mild mitral regurg, mild tricuspid regurg, carotid Dopplers reveal right proximal ICA with moderate 40-59% stenosis and left carotid with nonstenotic plaque the patient has not had any arrhythmias on telemetry. Troponin negative 3, EKG without any concerning ST-T wave changes per my assessment. Urinalysis negative for UTI 03/13/18--clinically, patient continued to improve, continues to have some weakness but displays good dynamic sitting and standing balance, she remains standby assist with transfer. She denies any return of near syncopal-like activity since admission. Workup thus far has been unremarkable. Falls likely caused by frailty and osteoarthritis. Per PT/OT patient would benefit from rehabilitation--pending acceptance to [facility] -Continue with PT/OT -check TSH -Continue monitor on telemetry for any arrhythmias (2) Fall Current Visit: Yes Status: Acute Assessment and Plan: See above (3) Type 2 diabetes mellitus without complication Current Visit: No Status: Chronic Assessment and Plan: Continues to have hyperglycemia per fingerstick blood glucose, Increase SSI to high coverage and before meals at bedtime Accu-Cheks with diabetic diet (4) CAD (coronary artery disease) Current Visit: No Status: Chronic Assessment and Plan: Continues to deny chest pain. Continue cardiac medications (5) HTN (hypertension) Current Visit: No Status: Chronic Assessment and Plan: History, BP elevated this afternoon, 175/74, however, I believe this to be an inaccurate reading as the patient has had stable blood pressures throughout the stay thus far. The blood pressure much improved, 130/73, Continue anti-HTN medications and titrate as necessary (6) DVT prophylaxis Current Visit: No Status: Acute Assessment and Plan: Heparin SC - Time Spent with Patient Total time spent is greater than 50% in coordination of care (as documented) at patient's floor/unit and/or counseling patient: less than 15 minutes Plan of Care Discussed with: patient Internal Medicine: Result - Labs CBC & Chem 7: 03/12/18 06:08 03/12/18 06:08 Consult Discharge Plan - Plan Referrals: Radha Purcell, PhD [Primary Care Provider] - (2) Fall Qualifiers: Encounter type: initial encounter Qualified Code(s): W19.XXXA - Unspecified fall, initial encounter (3) Type 2 diabetes mellitus without complication Qualifiers: Diabetes mellitus long term care pharmacist insulin use: with detention use Qualified Code(s) : E11.9 - Type 2 diabetes mellitus without complications; Z79.4 - 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 transplanted heart: unspecified whether [place] or transplanted heart Associated angina: angina presence unspecified Qualified Code(s): I25.10 - Atherosclerotic heart disease of [place] coronary artery without angina pectoris (5) HTN (hypertension) Qualifiers: Hypertension type: essential hypertension Qualified Code(s): I10 - Essential (primary) hypertension
[2018-03-13] MEDS: Acetaminophen 325 MG TABLET PO PRN (16:26)
[2018-03-13] MEDS: ALPRAZolam 0.5 MG TABLET PO PRN (20:20)
[2018-03-14] MEDS: *HR* Heparin 5,000 UNIT/ML VIAL SQ SCH (05:06)
[2018-03-14 07:31] VITALS: BP 128/68
[2018-03-14] MEDS: Vitamin B Complex/Vit C/Vit E 1 EACH TABLET PO SCH (08:19)
[2018-03-14] MEDS: Furosemide 20 MG TABLET PO SCH (08:19)
[2018-03-14] MEDS: Ascorbic Acid 500 MG TABLET PO SCH (08:19)
[2018-03-14] MEDS: Aspirin Enteric Coated 81 MG Tablet PO SCH (08:19)
[2018-03-14] MEDS: Insulin LISPRO 300 UNITS/3 ML VIAL SQ SCH ×2 (08:22→12:23)
--- NOTE | 2018-03-14 11:40 | Discharge Summary ---
- NOTES TO OUTPATIENT PROVIDER Notes to Outpatient Provider: Presented following multiple falls, likely caused by frailty and osteoarthritis. 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 transplanted heart: unspecified whether [place] or transplanted heart Associated angina: angina presence unspecified Qualified Code(s): I25.10 - Atherosclerotic heart disease of [place] coronary artery without angina pectoris (5) HTN (hypertension) Priority: Secondary Status: Chronic Qualifiers: Hypertension type: essential hypertension Qualified Code(s): I10 - Essential (primary) hypertension (6) DVT prophylaxis Priority: Secondary Status: Acute Hospital course: Ms. Frankel is a 82 year old female who presented to the ER for dizziness and falls. Past medical history significant for diabetes, CAD, hypertension. The patient reports that she felt dizzy on the day of arrival and while in the bathroom fell and hit her head without loss of consciousness. She is reporting approximately greater than 10 falls in less than a year's time span. Workup included echocardiogram which found mild LV diastolic dysfunction, mild mitral regurg, mild tricuspid regurg. Carotid imaging obtained finding right proximal ICA moderate 40-59% stenosis, left carotid system with nonstenotic plaque, cardio biomarkers negative 3. Workup unremarkable, uneventful hospital course. Worked with PT/OT while inpatient, findings that rehabilitation would be beneficial for strength and balance. Patient does appear to be a fall risk due to frailty, osteoarthritis and history of repeated falls within the last year. She is being discharged to [facility] for rehabilitation. No pending studies at time of discharge Discharge discussed with: patient, family, nurse, social work, case management - Time Spent with Patient Total time spent providing and/or coordinating discharge services: Less than 30 minutes - Discharge Medications Home Medications: ALPRAZolam [Xanax 0.5 MG Tablet] 0.5 mg PO TID PRN 02/14/18 [History] Ascorbic Acid [Vitamin C] 500 mg PO DAILY 02/14/18 [History] Aspirin Enteric Coated [Aspirin EC] 81 mg PO DAILY 02/14/18 [History] Atorvastatin [Lipitor] 40 mg PO HS 02/14/18 [History] Cholecalciferol (D-3) [Vitamin D] 5,000 unit PO DAILY 02/14/18 [History] Fish Oil/Dha/Epa [Fish Oil 1,200 mg Fish Oil] 1 cap PO BID 02/14/18 [History] Furosemide [Lasix] 20 mg PO DAILY 02/14/18 [History] Insulin Glargine,Hum.rec.anlog [Lantus Solostar] 5 units SQ BID 02/14/18 [ History] Metoprolol [Lopressor] 25 mg PO DAILY 02/14/18 [History] Vitamin B Complex Vit C No.4 [Super B Complex] 1 tab PO DAILY 02/14/18 [History] glipiZIDE [Glipizide] 10 mg PO BID 02/14/18 [History] Allergies/Adverse Reactions: 3 Allergy/AdvReac Type Severity Reaction Status Date / Time Penicillins Allergy Anaphylaxis Verified 02/10/18 11:39 Date of admission: 03/11/18 09:51 Primary care physician: Radha Purcell Consults: 03/11/18 10:31 Consult to Occupational Therapy [CONS] Routine Comment: Evaluate, develop and implement POC Reason for Consult: Frequent falls Does patient have active BEDREST order?: No Is patient medically & hemodynamically stable?: Yes Consult to Physical Therapy [CONS] Routine Comment: Evaluate, develop and implement POC Reason for Consult: Frequent falls Does patient have active BEDREST order?: No Is patient medically & hemodynamically stable?: Yes Consult to Lidding Machine Operator [CONS] Routine Reason for SW Consult: Frequent falls Discharging clinician: Lawrence Emmanuel Anticipated date of discharge: 03/14/18 - Constitutional Vitals: Temp Pulse Resp BP Pulse Ox 98.2 F 74 16 128/68 95 03/14/18 07:30 03/14/18 07:30 03/14/18 07:30 03/14/18 07:30 03/14/18 08:31 General appearance: Present: A&O X 3, no acute distress, answers questions appropriately Exam: PHYSICAL EXAMINATION: GENERAL: The patient is an obese female in no apparent distress. She is alert and oriented x3. HEENT: Head is normocephalic and atraumatic. Extraocular muscles are intact. Pupils are equal, round, and reactive to light and accommodation NECK: Supple. No carotid bruits. No lymphadenopathy or thyromegaly. LUNGS: Clear to auscultation. HEART: Regular rate and rhythm without murmur. ABDOMEN: Soft, nontender, and nondistended. Positive bowel sounds. No hepatosplenomegaly was noted. EXTREMITIES: Without any cyanosis, clubbing, rash, lesions or edema. NEUROLOGIC: Cranial nerves II through XII are grossly intact SKIN: No ulceration or induration present. - Patient Status Disposition: Home, Self-Care Condition: Fair Functional capacity at discharge: uses cane/walker Overall status at discharge: patient is progressing back to baseline - Discharge Instructions Instructions: Anemia (GEN), Fall Prevention (DC), Syncope (DC) Follow Up With: Radha Purcell, PhD [Primary Care Provider] - - Diet and Activity Activity: as per physical therapy, increase activity as tolerated Diet: diabetic diet, low fat, low cholesterol
--- NOTE | 2018-03-14 11:46 | Physician Discharge Referral ---
ExtendedCare Referral Info Transfer To: [facility] rehabilitation Provider in Charge after Transfer: PCP Institutional Level of Care: Skilled - Diagnosis (1) Near syncope Priority: Primary Status: Acute (2) Fall Priority: Secondary Status: Acute (3) Type 2 diabetes mellitus without complication Priority: Secondary Status: Chronic (4) CAD (coronary artery disease) Priority: Secondary Status: Chronic (5) HTN (hypertension) Priority: Secondary Status: Chronic (6) DVT prophylaxis Priority: Secondary Status: Acute Prognosis: Good Aware of Diagnosis: Patient, Family Aware of Prognosis: Patient, Family - Transfer Medications Home Medications: ALPRAZolam [Xanax 0.5 MG Tablet] 0.5 mg PO TID PRN 02/14/18 [History] Ascorbic Acid [Vitamin C] 500 mg PO DAILY 02/14/18 [History] Aspirin Enteric Coated [Aspirin EC] 81 mg PO DAILY 02/14/18 [History] Atorvastatin [Lipitor] 40 mg PO HS 02/14/18 [History] Cholecalciferol (D-3) [Vitamin D] 5,000 unit PO DAILY 02/14/18 [History] Fish Oil/Dha/Epa [Fish Oil 1,200 mg Fish Oil] 1 cap PO BID 02/14/18 [History] Furosemide [Lasix] 20 mg PO DAILY 02/14/18 [History] Insulin Glargine,Hum.rec.anlog [Lantus Solostar] 5 units SQ BID 02/14/18 [ History] Metoprolol [Lopressor] 25 mg PO DAILY 02/14/18 [History] Vitamin B Complex Vit C No.4 [Super B Complex] 1 tab PO DAILY 02/14/18 [History] glipiZIDE [Glipizide] 10 mg PO BID 02/14/18 [History] Allergies/Adverse Reactions: 3 Allergy/AdvReac Type Severity Reaction Status Date / Time Penicillins Allergy Anaphylaxis Verified 02/10/18 11:39 - Respiratory Orders Smoking Cessation: Smoking cessation has been advised. For more information, call the [place] Tobacco Quit Line at 4-546-UFYR-NOW. - Mobility Orders Ambulate (With assistance) - Rehabiliation Orders Rehab Potential: Good Rehab Orders: ROM Exercises, Evaluation for Physical Therapy, Evaluation for Occupational Therapy - Diet Orders No Concentrated Sweets, Cardiac CERTIFICATION: I certify that the transfer of the above named patient to an Extended Care Facility is necessary for the continuing treatment of the diagnosis listed. The above information is true and accurate reflection of patient's current condition. Confidential - Redisclosure prohibited without a patient's written consent.
[2018-03-14] MEDS: ALPRAZolam 0.5 MG TABLET PO PRN (13:44)
== END 2018-03-14 16:59 | disposition home or self-care (01) ==
LOC: 3BNU 07:59 → EMEROOARM 07:59 → 3BNU 10:14
PROVIDERS: ADMIT Internal Medicine; ATTEND Internal Medicine

== ENCOUNTER 2018-05-20 16:29 | Observation (INO) ==
[2018-05-20] MEDS ORDERED: Dextrose Gel 15 GM/37.5 ML TUBE PO PRN ×2 (19:26)
[2018-05-20] MEDS ORDERED: Ringers Solution, Lactated 1,000 ML IVC SCH ×2 (19:30→20:30)
[2018-05-20] MEDS ORDERED: D5% in Lactated Ringers 1,000 ML IVC SCH (19:45)
[2018-05-20 20:00] LABS: Basophils % 0.3 %; Eosinophils # 0.2 K/mcL (0.0-0.6); Eosinophils % 2.9 %; Hematocrit 22.7 % (35.3-44.9); Hemoglobin 7.1 g/dL (11.5-15.4); Immature Granulocytes % 0.5 % (0-4); Lymphocytes # 1.8 K/mcL (0.6-4.6); Mean Corpuscular HGB Conc 31.3 g/dL (31.6-35.5); Mean Corpuscular Hemoglobin 29.8 pg (28.0-33.3); Mean Corpuscular Volume 95.4 fL (83.0-100.0); Mean Platelet Volume 9.7 fL (9.4-12.4); Monocytes # 0.6 K/mcL (0.0-1.3); Monocytes % 8.3 %; Neutrophils # 4.1 K/mcL (1.6-8.9); Platelet Count 308 K/mcL (140-400); Red Blood Count 2.38 M/mcL (3.82-4.97); Red Cell Distribution Width 15.6 % (11.5-14.5)
[2018-05-20 20:07] LABS: Immature Reticulocyte % 28.2 % (11.0-38.0); Retculocyte # 0.15 M/mcL (0.05-0.10); Reticulocyte % 6.2 % (1.6-2.8)
[2018-05-20 20:28] LABS: Calcium 9.4 mg/dL (8.6-10.3); Potassium 3.8 mEq/L (3.5-5.1)
[2018-05-20 20:32] LABS: % Iron Saturation 12 % (15-50); Iron 44 mcg/dL (50-170); Transferrin 261 mg/dL (203-362)
--- NOTE | 2018-05-20 20:32 | Internal Med History&Physical ---
Date of Encounter: 05/20/18 Time of Encounter: 20:30 Internal Medicine - H&P: HPI Chief complaint: fatigue Admitted From: Home Plans for Post Hospital Care: Home History of present illness: Emily Frankel is an 82-year-old woman with a history of coronary artery disease status post stent placement in 2001, diabetes and hypertension who presents here on transfer from [place] for anemia. She states that approximately 5-6 weeks ago she was started on apixaban by her spanish speaking nanny at [place] for unspecified reasons however on speaking with family members it seems to have been due to A. fib. She is then noticed having dark stool 4 days ago which progressed and today complains of increasing fatigue and weakness for which reason she was brought in to the emergency room. While there she was seen to be fecal occult blood positive and had a drop in hemoglobin to 7.1 from a baseline closer to 10. It was recommended she be transferred here for further management. While here she reports feeling somewhat nauseated although she denies abdominal pain and epigastric on January. She says her last bowel movement was dark brown but not black as it once was. She denies dizziness or lightheadedness but just feels generally weak. She states that she also takes aspirin in conjunction with the anticoagulant. She denies a history of GI bleed and has never received a blood transfusion in the past. She denies any chest pain or shortness of breath. Past medical history as stated above. Past surgical history remarkable for hysterectomy. Denies smoking and illicit drug use on social history; has good family support system. Family history obtained and found noncontributory. 10 point systems were reviewed and are negative except as listed above. Past Med Surg Social Fam HX - Past Medical History Medical history: arthritis, CHF, diabetes, GI bleed, hyperlipidemia, myocardial infarction Psychiatric history: anxiety - Past Surgical History Surgical History: angioplasty/stent, appendectomy, hysterectomy Additional surgical history: stent x1 - Social History Smoking Status: Never smoker Smokeless Tobacco Status: No Alcohol use: none Drug use: none - Family History Mother Living Status: Age at : 56 Cause of : Cancer Hx Family Cancer: Yes (Unknown type) Father Living Status: Age at : 74 Cause of : Cancer Hx Family Cancer: Yes (Unknown type) Internal Medicine - H&P: Meds ALPRAZolam [Xanax 0.5 MG Tablet] 0.5 mg PO TID PRN 02/14/18 [History] Ascorbic Acid [Vitamin C] 500 mg PO DAILY 02/14/18 [History] Aspirin Enteric Coated [Aspirin EC] 81 mg PO DAILY 02/14/18 [History] Atorvastatin [Lipitor] 40 mg PO HS 02/14/18 [History] Cholecalciferol (D-3) [Vitamin D] 5,000 unit PO DAILY 02/14/18 [History] Fish Oil/Dha/Epa [Fish Oil 1,200 mg Fish Oil] 1 cap PO BID 02/14/18 [History] Furosemide [Lasix] 20 mg PO DAILY 02/14/18 [History] Insulin Glargine,Hum.rec.anlog [Lantus Solostar] 5 units SQ BID 02/14/18 [History] Metoprolol [Lopressor] 25 mg PO DAILY 02/14/18 [History] Vitamin B Complex Vit C No.4 [Super B Complex] 1 tab PO DAILY 02/14/18 [History] Acetaminophen [Tylenol] 650 mg PO Q6HR PRN tablet 03/19/18 [Rx] Nitroglycerin 0.4 mg SL Q5MIN PRN tab.subl 03/19/18 [Rx] Polyethylene Glycol 3350 [MiraLAX] 17 gm PO DAILY PRN powd.pack 03/19/18 [Rx] glipiZIDE [Glucotrol] 10 mg PO BID tablet 03/19/18 [Rx] Apixaban [Eliquis] 5 mg PO BID 05/20/18 [History] Insulin LISPRO [HumaLOG] 0 units SQ TIDAC PRN 05/20/18 [History] Sitagliptin Phosphate [Januvia] 50 mg PO DAILY 05/20/18 [History] Allergy/AdvReac Type Severity Reaction Status Date / Time Penicillins Allergy Anaphylaxis Verified 02/10/18 11:39 All Systems PM: A 10-system review of systems was performed and is negative for pertinent findings except as documented above in the HPI. - Constitutional Vitals: Temp Pulse Resp BP Pulse Ox 97.6 F 70 17 146/58 97 05/20/18 19:04 05/20/18 19:04 05/20/18 19:04 05/20/18 19:04 05/20/18 19:04 Exam: Vitals: Reviewed General: Obese white female lying comfortably in bed in no acute distress Skin: Pale but warm and supple. HEENT: Moist mucous membranes. No conjunctivae pallor. Neck: No lymphadenopathy. No JVD. No carotid bruits. No palpable thyroid. Chest: Normal thoracic expansion. Normal breath sounds. Clear to auscultation. Heart: Normal S1 & S2; rhythmic. No rubs or murmurs. Abdomen: Non-distended, soft and non-tender to palpation. No peritoneal reaction. Extremities: No clubbing, cyanosis or edema. No calf tenderness. Normal distal pulses. Neurological: Awake, alert and oriented to person, place and time. No focal deficits. Psych: Affect appropriate. Internal Med - H&P Results - Labs CBC & Chem 7: 05/20/18 19:37 05/20/18 19:37 Labs: Short CBC 05/20/18 Range/Units 19:37 WBC 6.6 (4.3-11.1) K/mcL Hgb 7.1 L (11.5-15.4) g/dL Hct 22.7 L (35.3-44.9) % Plt Count 308 (140-400) K/mcL Neutrophils # 4.1 (1.6-8.9) K/mcL BMP 05/20/18 19:37 Sodium 137 Potassium 3.8 Chloride 103 Carbon Dioxide 25 BUN 22 Creatinine 1.34 H Glucose 305 H Calcium 9.4 - Assessment and plan (1) Anemia Current Visit: Yes Status: Acute Assessment and plan: Secondary to blood loss from GI bleed. Will send iron studies and transfuse to a goal Hgb >8g/dl given her CAD history and symptomatic state. Qualifiers: Anemia type: iron deficiency Iron deficiency anemia type: chronic blood loss Qualified Code(s): D50.0 - Iron deficiency anemia secondary to blood loss (chronic) (2) Gastrointestinal bleed Current Visit: Yes Status: Acute Assessment and plan: Concern for drug induced hemorrhagic gastritis or ulcer from anticoagulant t herapy. Will keep NPO. Anti-emetics prn. GI consult requested. Qualifiers: GI bleed type/associated pathology: melena Qualified Code(s): K92.1 - Melena (3) Fatigue Current Visit: Yes Status: Acute Assessment and plan: Secondary to anemia. Should improve with fluid resuscitation and blood transfusion. Qualifiers: Fatigue type: other Qualified Code(s): R53.83 - Other fatigue (4) Atrial fibrillation Current Visit: Yes Status: Chronic Assessment and plan: The patient is currently in sinus rhythm. It appears to be a recent diagnosis prompting the initiation of apixaban. Will hold apixaban and aspirin for now in the setting of GI bleed. Monitor on telemetry. Qualifiers: Atrial fibrillation type: paroxysmal Qualified Code(s): I48.0 - Paroxysmal atrial fibrillation (5) CAD (coronary artery disease) Current Visit: Yes Status: Chronic Assessment and plan: stable. can continue statin therapy and beta lizabeth/acei for now. Qualifiers: Coronary Disease-Associated Artery/Lesion type: [place] artery [place] vs. transplanted heart: [place] heart Associated angina: without angina Qualified Code(s): I25.10 - Atherosclerotic heart disease of [place] coronary artery without angina pectoris (6) Chronic CHF (congestive heart failure) Current Visit: Yes Status: Chronic Assessment and plan: Last echo showed improved EF to 60%. No signs of decompensation. Continue home meds when feasible. Qualifiers: Heart failure type: unspecified Qualified Code(s): I50.9 - Heart failure, unspecified (7) HTN (hypertension) Current Visit: Yes Status: Chronic Assessment and plan: Well controlled for age. Will resume home meds when feasible. Qualifiers: Hypertension type: essential hypertension Qualified Code(s): I10 - Essential (primary) hypertension (8) Type 2 diabetes mellitus without complication Current Visit: Yes Status: Chronic Assessment and plan: NPO for now. Last A1C uncontrolled. Will place on ISS. Qualifiers: Qualified Code(s): E11.9 - Type 2 diabetes mellitus without complications; Z79.4 - assisted (current) use of insulin (9) DVT prophylaxis Current Visit: Yes Status: Acute Assessment and plan: SubQ heparin in the interim. - Time Spent With Patient Total time spent is greater than 50% in coordination of care (as documented) at patient's floor/unit and/or counseling patient: Greater than 35 minutes
[2018-05-20 20:42] LABS: Ferritin 15 ng/mL (10-120)
[2018-05-20] MEDS: Ondansetron 4 MG/2 ML VIAL IVP PRN (21:29)
[2018-05-20] MEDS ORDERED: Insulin LISPRO 300 UNITS/3 ML VIAL SQ ONE ×2 (21:55→22:01)
[2018-05-20] MEDS ORDERED: 0.9 % Sodium Chloride 500 ML ONE (21:56)
[2018-05-21] MEDS: Insulin LISPRO 300 UNITS/3 ML VIAL SQ SCH ×4 (01:29→18:22)
[2018-05-21 05:27] LABS: Basophils % 0.3 %; Eosinophils # 0.2 K/mcL (0.0-0.6); Eosinophils % 3.4 %; Hematocrit 24.6 % (35.3-44.9); Hemoglobin 7.9 g/dL (11.5-15.4); Immature Granulocytes % 0.2 % (0-4); Lymphocytes # 1.7 K/mcL (0.6-4.6); Lymphocytes % 26.3 %; Mean Corpuscular HGB Conc 32.1 g/dL (31.6-35.5); Mean Corpuscular Hemoglobin 29.9 pg (28.0-33.3); Mean Corpuscular Volume 93.2 fL (83.0-100.0); Mean Platelet Volume 9.7 fL (9.4-12.4); Monocytes # 0.7 K/mcL (0.0-1.3); Monocytes % 10.5 %; Neutrophils # 3.9 K/mcL (1.6-8.9); Platelet Count 269 K/mcL (140-400); Red Blood Count 2.64 M/mcL (3.82-4.97); Red Cell Distribution Width 15.9 % (11.5-14.5); Segmented Neutrophils % 59.3 %
[2018-05-21 05:29] LABS: BUN/Creatinine Ratio 17 (6-26); Blood Urea Nitrogen 17 mg/dL (8-23); Calcium 8.8 mg/dL (8.6-10.3); Carbon Dioxide 27 mEq/L (23-29); Chloride 108 mEq/L (98-107); Glucose 101 mg/dL (70-105); Osmolality,Calculated 296 (280-300); Sodium 142 mEq/L (136-145); eGFR For Non-African Americans 52 (> 60)
[2018-05-21] MEDS ORDERED: Pantoprazole 40 MG VIAL IVP SCH (06:00)
--- NOTE | 2018-05-21 09:37 | Internal Med Progress Note ---
Hospitalist Progress Note - Encounter Date of Encounter: 05/21/18 Time of Encounter: 09:35 - Subjective Interval History: Patient seen and evaluated at bedside, she reports doing well today. States that she was recently started on blood thinner and iron was having dark stools for about 4 days. Denies abdominal pain, nausea or vomiting. Denies having a BM today. Denies seeing blood in the urine or stool. - Exam Vitals: Temp Pulse Resp BP Pulse Ox 98.1 F 68 18 108/50 95 05/21/18 07:10 05/21/18 07:10 05/21/18 07:10 05/21/18 07:10 05/21/18 07:10 Exam: General: Alert and oriented 4. In no acute distress. Skin: Normal color, no rash, no lesions. HEENT: EOM, pupils equal, round and reactive. Cardiovascular: RRR, Normal S1 & S2, no rubs, murmurs or gallops. Lungs: Clear to auscultation bilaterally,, no wheezes or crackles. Abdomen: Soft, non-tender, no rigidity. Extremities: No deformity, no edema or tenderness, no joint swelling or clubbing. Neurological:Normal cognition and motor skills. Rest of the physical exam is non contributory - Assessment and Plan (1) Gastrointestinal bleed Current Visit: Yes Status: Acute Assessment and Plan: Patient presented to the emergency room due to weakness, fatigue and dark stool. Reports that she was recently started on a blood thinner. Plan GI has been consulted, will follow recommendations. Nothing by mouth On PPI 40 mg IV twice a day Ondansetron 4 mg IV every 6 hours when necessary for nausea and vomiting On D5 normal saline at 75 MSL per hour as maintenance fluid Serial CBC every 6 hours. We will consider transfusing the patient if Hb <7, HCt <23 or patient becomes symptomatic Accu-Cheks every 6 hours On lispro sliding scale every 6 hours. (2) Type 2 diabetes mellitus without complication Current Visit: Yes Status: Chronic Assessment and Plan: Patient is nothing by mouth. On D5NS for maintenance fluid to avoid hypoglycemia Lispro low dose Sliding scale (3) Chronic CHF (congestive heart failure) Current Visit: Yes Status: Chronic Assessment and Plan: Not on acute exacerbation. euvolemic. Plan Strict intake and output Hold furosemide Continue metoprolol 12.5 mg by mouth twice a day (4) CAD (coronary artery disease) Current Visit: Yes Status: Chronic Assessment and Plan: Patient on aspirin, which has been held due to GI bleed. (5) HTN (hypertension) Current Visit: Yes Status: Chronic Assessment and Plan: Blood pressure is controlled. Started metoprolol at a lower dose than her home dosage. (6) Anemia Current Visit: Yes Status: Acute Assessment and Plan: Plan of care as problem #1. (7) Atrial fibrillation Current Visit: Yes Status: Chronic Assessment and Plan: Rate controlled on metoprolol. Continue medication. Will hold anticoagulation due to GI bleed. On discharge will consider discharging the patient on aspirin. (8) Fatigue Current Visit: Yes Status: Acute Assessment and Plan: Possible secondary to anemia. PT/OT DVT Prophylaxis: No chemical DVT prophylaxis due to GI bleed. Continue mechanical DVT prophylaxis - Summary of Assessment and Plan Summary of Assessment and Plan: Patient admitted due to GI bleed. Pending GI evaluation. - Time Spent with Patient Total time spent is greater than 50% in coordination of care (as documented) at patient's floor/unit and/or counseling patient: 25 - 35 minutes Plan of Care Discussed with: patient (And the nurse) Internal Medicine: Result - Labs CBC & Chem 7: 05/21/18 04:25 05/21/18 04:25 Labs: Short CBC 05/20/18 05/21/18 Range/Units 19:37 04:25 WBC 6.6 6.5 (4.3-11.1) K/mcL Hgb 7.1 L 7.9 L (11.5-15.4) g/dL Hct 22.7 L 24.6 L (35.3-44.9) % Plt Count 308 269 (140-400) K/mcL Neutrophils # 4.1 3.9 (1.6-8.9) K/mcL BMP 05/20/18 05/21/18 19:37 04:25 Sodium 137 142 Potassium 3.8 4.0 Chloride 103 108 H Carbon Dioxide 25 27 BUN 22 17 Creatinine 1.34 H 1.01 Glucose 305 H 101 Calcium 9.4 8.8 Consult Discharge Plan - Plan Referrals: NONE,PCP [Primary Care Provider] - (1) Gastrointestinal bleed Qualifiers: GI bleed type/associated pathology: melena Qualified Code(s): K92.1 - Melena (2) Type 2 diabetes mellitus without complication Qualifiers: (3) Chronic CHF (congestive heart failure) Qualifiers: Heart failure type: diastolic Qualified Code(s): I50.32 - Chronic diastolic (congestive) heart failure (4) CAD (coronary artery disease) Qualifiers: Coronary Disease-Associated Artery/Lesion type: [place] artery [place] vs. transplanted heart: [place] heart Associated angina: without angina Qualified Code(s): I25.10 - Atherosclerotic heart disease of [place] coronary artery without angina pectoris (5) HTN (hypertension) Qualifiers: Hypertension type: essential hypertension (6) Anemia Qualifiers: Anemia type: iron deficiency Iron deficiency anemia type: chronic blood loss Qualified Code(s): D50.0 - Iron deficiency anemia secondary to blood loss (chronic) (7) Atrial fibrillation Qualifiers: Atrial fibrillation type: paroxysmal Qualified Code(s): I48.0 - Paroxysmal atrial fibrillation (8) Fatigue Qualifiers: Fatigue type: other Qualified Code(s): R53.83 - Other fatigue
[2018-05-21] MEDS: D5% in 0.9% NACL 1,000 ML IVC SCH (09:39)
[2018-05-21 10:25] LABS: Basophils % 0.2 %; Eosinophils # 0.2 K/mcL (0.0-0.6); Eosinophils % 3.2 %; Hematocrit 25.4 % (35.3-44.9); Hemoglobin 8.2 g/dL (11.5-15.4); Immature Granulocytes % 0.2 % (0-4); Lymphocytes # 1.5 K/mcL (0.6-4.6); Lymphocytes % 25.4 %; Mean Corpuscular HGB Conc 32.3 g/dL (31.6-35.5); Mean Corpuscular Hemoglobin 30.1 pg (28.0-33.3); Mean Corpuscular Volume 93.4 fL (83.0-100.0); Mean Platelet Volume 9.6 fL (9.4-12.4); Monocytes # 0.5 K/mcL (0.0-1.3); Monocytes % 7.9 %; Neutrophils # 3.8 K/mcL (1.6-8.9); Platelet Count 272 K/mcL (140-400); Red Blood Count 2.72 M/mcL (3.82-4.97); Red Cell Distribution Width 16.3 % (11.5-14.5); Segmented Neutrophils % 63.1 %
--- NOTE | 2018-05-21 11:19 | Gastroenterology Consult Note ---
<FlorMartín pearson Griffin - Last Filed: 05/21/18 11:20> Date of Encounter: 05/21/18 Time of Encounter: 10:00 - Assessment and plan (1) Anemia Current Visit: Yes Status: Acute Assessment and plan: On arrival to [place], fecal occult blood test was positive and Hgb 7.1, iron 44, and ferritin 15. Stool was black and tarry yesterday. Today Hgb 7.9. Continue to monitor CBC and transfuse PRBC as needed. Start iron supplement. Plan for EGD today to r/o esophagitis, gastritis, duodenitis, PUD, MW tear, or AVM. Keep patient NPO for EGD. Qualifiers: Anemia type: iron deficiency Iron deficiency anemia type: chronic blood loss Qualified Code(s): D50.0 - Iron deficiency anemia secondary to blood loss (chronic) (2) Gastrointestinal bleed Current Visit: Yes Status: Acute Assessment and plan: As above. Qualifiers: GI bleed type/associated pathology: melena Qualified Code(s): K92.1 - Melena - Time Spent With Patient Total time spent is greater than 50% in coordination of care (as documented) at patient's floor/unit and/or counseling patient: GI History of Present Illness - Data of Consult Patient: new to practice Consult date: 05/21/18 Requesting Physician: Kristopher Bejarano MD - Consult Narrative Reason for consult: Anemia, melena History of present illness: Ms. Frankel is a 82 year old female with PMHx of arthritis, CHF, DM, HLD, [place], CAD s/p stent placement in 2001 who was transferred from [place] for anemia. She was started on Eliquis 5-6 weeks ago for her Afib. She reports dark stools 4 days prior to admission which has progressed and started to complain of fatigue and weakness the day of admission. On arrival to [place], fecal occult blood test was positive and Hgb 7.1, iron 44, and ferritin 15. Stool was black and tarry yesterday. Today Hgb 7.9. Procedures: None NSAIDs: ASA Anticoagulation: Eliquis Past Med Surg Social Fam HX - Past Medical History Medical history: arthritis, CHF, diabetes, GI bleed, hyperlipidemia, myocardial infarction Psychiatric history: anxiety - Past Surgical History Surgical History: angioplasty/stent, appendectomy, hysterectomy Additional surgical history: stent x1 - Social History Smoking Status: Never smoker Smokeless Tobacco Status: No Alcohol use: none Drug use: none - Family History Mother Living Status: Age at : 56 Cause of : Cancer Hx Family Cancer: Yes (Unknown type) Father Living Status: Age at : 74 Cause of : Cancer Hx Family Cancer: Yes (Unknown type) - Gastrointestinal Gastrointestinal: Present: as per HPI - Constitutional Constitutional: as per HPI - EENT Eyes: as per HPI Ears: Present: as per HPI Nose, mouth and throat: Present: as per HPI - Cardiovascular Cardiovascular ROS: Present: as per HPI - Respiratory Respiratory IM: Present: as per HPI - Genitourinary Genitourinary: Absent: change in color, Urinary frequency - Neurological ROS Neurological GI: Present: as per HPI - Hematologic/Lymphatic Hematologic/Lymphatic pediatric: Present: as per HPI - Musculoskeletal Musculoskeletal ROS GI: Present: as per HPI - Integumentary Integumentary GI: Present: as per HPI - Psychiatric ROS Psychiatric GI: Present: as per HPI - Endocrine Endocrine IM: Present: as per HPI - Constitutional Vitals: Temp Pulse Resp BP Pulse Ox 98.1 F 68 18 108/50 95 05/21/18 07:10 05/21/18 07:10 05/21/18 07:10 05/21/18 07:10 05/21/18 07:10 General appearance: Present: cooperative, A&O X 3, no acute distress, answers questions appropriately - Head Head exam: Present: atraumatic, normocephalic - Eye Eye exam: Present: normal appearance, sclera anicteric - ENT ENT exam: Present: mucous membranes dry - Neck Neck exam general surgery: Present: normal inspection, trachea midline - Respiratory Respiratory exam: Present: decreased breath sounds, CTAB. Absent: rales, rhonchi - Cardiovascular Cardiovascular exam: Present: RRR, +S1, +S2 - GI/Abdominal GI/Abdominal exam: Present: soft, no peritoneal signs. Absent: distended, firm, guarding, tenderness - Rectal Rectal exam: Present: deferred - Extremities Exam Extremities exam: Present: warm - Neurological Exam Neurological exam: Present: no focal deficits - Psychiatric Psychiatric exam: Present: normal affect, normal mood - Skin Skin exam: Present: dry, intact, normal color, warm Results - Labs CBC & Chem 7: 05/21/18 09:57 05/21/18 04:25 Labs: Last Result Calcium 8.8 mg/dL (8.6-10.3) 05/21/18 04:25 Iron 44 mcg/dL (50-170) L 05/20/18 19:37 % Saturation 12 % (15-50) L 05/20/18 19:37 Transferrin 261 mg/dL (203-362) 05/20/18 19:37 Ferritin 15 ng/mL (10-120) 05/20/18 19:37 Entire Visit Hgb 8.2 g/dL (11.5-15.4) L 05/21/18 09:57 Hct 25.4 % (35.3-44.9) L 05/21/18 09:57 Ferritin 15 ng/mL (10-120) 05/20/18 19:37 Consult Discharge Plan - Plan Referrals: NONE,PCP [Primary Care Provider] - <Dima Alvarez - Last Filed: 05/21/18 15:14> Time of Encounter: 14:00 - Time Spent With Patient Total time spent is greater than 50% in coordination of care (as documented) at patient's floor/unit and/or counseling patient: GI History of Present Illness - Data of Consult Requesting Physician: Kristopher Bejarano MD - Consult Narrative History of present illness: Ms. Frankel is a 82 year old female - Constitutional Vitals: Temp Pulse Resp BP Pulse Ox 97.8 F 69 18 118/50 93 05/21/18 13:23 05/21/18 14:06 05/21/18 13:35 05/21/18 14:06 05/21/18 13:35 Results - Labs CBC & Chem 7: 05/21/18 09:57 05/21/18 04:25 Labs: Last Result Calcium 8.8 mg/dL (8.6-10.3) 05/21/18 04:25 Iron 44 mcg/dL (50-170) L 05/20/18 19:37 % Saturation 12 % (15-50) L 05/20/18 19:37 Transferrin 261 mg/dL (203-362) 05/20/18 19:37 Ferritin 15 ng/mL (10-120) 05/20/18 19:37 Entire Visit Hgb 8.2 g/dL (11.5-15.4) L 05/21/18 09:57 Hct 25.4 % (35.3-44.9) L 05/21/18 09:57 Ferritin 15 ng/mL (10-120) 05/20/18 19:37 - Attending Attestation I have personally performed a face to face evaluation on this patient. I have reviewed and agree with the care plan. History and Exam by me shows: Patient seen. Patient 82-year-old female who has been recently started on Eliquis and since then had some black stool. Denies any abdominal pain. on examination abdomen is benign. Assessment patient 82-year-old female with a severe iron deficiency anemia. Recommendation: EGD today and if negative for any obvious pathology to explain her iron deficiency anemia then she will need a colonoscopy. Folow H&H and transfuse as needed. IV iron therapy
[2018-05-21] MEDS ORDERED: *HR* Midazolam HCl 5 MG/5 ML VIAL IVP ONE ×2 (12:59→13:02)
[2018-05-21] MEDS ORDERED: *HR* FentaNYL (PF) 100 MCG/2 ML VIAL ONE (13:00)
[2018-05-21] MEDS ORDERED: Tetracaine/Benzocaine/Butamben 1 SPRAY AEROSOL MM ONE (13:02)
[2018-05-21] MEDS ORDERED: Simethicone 40 MG/0.6 ML MLS IR ONE (13:02)
[2018-05-21] MEDS ORDERED: *HR* FentaNYL (PF) 100 MCG/2 ML VIAL IVP ONE (13:02)
--- NOTE | 2018-05-21 13:05 | Pre-Sedation Evaluation ---
Pre-sedation evaluation - Pre-sedation checklist Date of procedure: 05/21/18 Recent Vitals: Last Vital Signs Temp 98.3 F 05/21/18 11:49 Pulse 66 05/21/18 11:49 Resp 18 05/21/18 11:49 BP 108/50 05/21/18 07:10 Pulse Ox 94 05/21/18 11:49 ASA Classification *see protocol: CLASS III-Severe systemic disease Plan of Care: Pt appropriate candidate for procedure/moderate/conscious sedation, Risks/benefits of procedure/sedation discussed w/ patient/family
[2018-05-21 15:53] LABS: Basophils % 0.5 %; Eosinophils # 0.3 K/mcL (0.0-0.6); Eosinophils % 4.2 %; Hemoglobin 7.8 g/dL (11.5-15.4); Immature Granulocytes % 0.3 % (0-4); Lymphocytes # 1.4 K/mcL (0.6-4.6); Lymphocytes % 22.6 %; Mean Corpuscular HGB Conc 31.2 g/dL (31.6-35.5); Mean Corpuscular Hemoglobin 29.3 pg (28.0-33.3); Mean Platelet Volume 9.5 fL (9.4-12.4); Monocytes # 0.5 K/mcL (0.0-1.3); Neutrophils # 3.8 K/mcL (1.6-8.9); Platelet Count 265 K/mcL (140-400); Red Blood Count 2.66 M/mcL (3.82-4.97); Red Cell Distribution Width 16.3 % (11.5-14.5); Segmented Neutrophils % 63.4 %
[2018-05-21] MEDS ORDERED: SODIUM CHLORIDE/NAHCO3/KCL/PEG 4,000 ML SOLN.RECON PO ONE (17:00)
[2018-05-21] MEDS: Sucralfate 1 GM TABLET PO SCH ×2 (17:29→21:56)
[2018-05-21] MEDS: Ondansetron 4 MG/2 ML VIAL IVP PRN (18:19)
[2018-05-21] MEDS: ALPRAZolam 0.5 MG TABLET PO PRN (21:57)
[2018-05-21 22:01] LABS: Basophils % 0.3 %; Eosinophils # 0.3 K/mcL (0.0-0.6); Eosinophils % 3.6 %; Hematocrit 26.5 % (35.3-44.9); Hemoglobin 8.4 g/dL (11.5-15.4); Immature Granulocytes % 0.3 % (0-4); Lymphocytes # 2.2 K/mcL (0.6-4.6); Mean Corpuscular HGB Conc 31.7 g/dL (31.6-35.5); Mean Corpuscular Hemoglobin 30.1 pg (28.0-33.3); Mean Platelet Volume 9.5 fL (9.4-12.4); Monocytes # 0.7 K/mcL (0.0-1.3); Monocytes % 8.6 %; Neutrophils # 4.6 K/mcL (1.6-8.9); Platelet Count 284 K/mcL (140-400); Red Blood Count 2.79 M/mcL (3.82-4.97); Red Cell Distribution Width 16.4 % (11.5-14.5); Segmented Neutrophils % 59.2 %
[2018-05-22] MEDS: Insulin LISPRO 300 UNITS/3 ML VIAL SQ SCH ×5 (00:52→22:33)
[2018-05-22 03:53] LABS: Basophils % 0.4 %; Eosinophils # 0.3 K/mcL (0.0-0.6); Eosinophils % 5.5 %; Hematocrit 23.4 % (35.3-44.9); Hemoglobin 7.4 g/dL (11.5-15.4); Immature Granulocytes % 0.2 % (0-4); Lymphocytes # 1.6 K/mcL (0.6-4.6); Lymphocytes % 29.6 %; Mean Corpuscular HGB Conc 31.6 g/dL (31.6-35.5); Mean Corpuscular Hemoglobin 29.7 pg (28.0-33.3); Mean Platelet Volume 9.8 fL (9.4-12.4); Monocytes # 0.5 K/mcL (0.0-1.3); Neutrophils # 2.9 K/mcL (1.6-8.9); Platelet Count 254 K/mcL (140-400); Red Blood Count 2.49 M/mcL (3.82-4.97); Segmented Neutrophils % 54.3 %
[2018-05-22 03:57] LABS: BUN/Creatinine Ratio 12 (6-26); Blood Urea Nitrogen 10 mg/dL (8-23); Calcium 8.2 mg/dL (8.6-10.3); Carbon Dioxide 27 mEq/L (23-29); Chloride 107 mEq/L (98-107); Glucose 210 mg/dL (70-105); Magnesium 1.7 mg/dL (1.6-2.6); Osmolality,Calculated 289 (280-300); Phosphorous 2.3 mg/dL (2.7-4.5); Potassium 4.4 mEq/L (3.5-5.1); Sodium 137 mEq/L (136-145); eGFR For Non-African Americans > 60 (> 60)
[2018-05-22] MEDS: Pantoprazole 40 MG VIAL IVP SCH (06:09)
[2018-05-22] MEDS: D5% in 0.9% NACL 1,000 ML IVC SCH (06:09)
[2018-05-22] MEDS ORDERED: 0.9 % Sodium Chloride 250 ML ONE ×2 (09:48→17:44)
--- NOTE | 2018-05-22 10:23 | Anesthesia Evaluation PreOp ---
Date of Encounter: 05/22/18 Time of Encounter: 11:15 - Past History Planned Operation: Colonoscopy Cardiac History: [place], CHF, HTN, Hyperlipidemia, Arrhythmia (H/O A-Fib, on Eliquis which was stopped this admission for anemia/bleeding), Cardiac Stent (stent x 1 in 2001) Pulmonary History: Denies Any Significant HX [employer] PROCESS History: Denies Any Significant HX Other Medical History: Diabetes Type II Anesthesia History: No Prior Anesthetic Complications, Past Anesthesia Alcohol Use: none Drug use: none Medications and Allergies ALPRAZolam [Xanax 0.5 MG Tablet] 0.5 mg PO TID PRN 02/14/18 [History] Ascorbic Acid [Vitamin C] 500 mg PO DAILY 02/14/18 [History] Aspirin Enteric Coated [Aspirin EC] 81 mg PO DAILY 02/14/18 [History] Atorvastatin [Lipitor] 40 mg PO HS 02/14/18 [History] Cholecalciferol (D-3) [Vitamin D] 5,000 unit PO DAILY 02/14/18 [History] Fish Oil/Dha/Epa [Fish Oil 1,200 mg Fish Oil] 1 cap PO BID 02/14/18 [History] Furosemide [Lasix] 20 mg PO DAILY 02/14/18 [History] Insulin Glargine,Hum.rec.anlog [Lantus Solostar] 5 units SQ BID 02/14/18 [History] Metoprolol [Lopressor] 25 mg PO DAILY 02/14/18 [History] Vitamin B Complex Vit C No.4 [Super B Complex] 1 tab PO DAILY 02/14/18 [History] Acetaminophen [Tylenol] 650 mg PO Q6HR PRN tablet 03/19/18 [Rx] Nitroglycerin 0.4 mg SL Q5MIN PRN tab.subl 03/19/18 [Rx] Polyethylene Glycol 3350 [MiraLAX] 17 gm PO DAILY PRN powd.pack 03/19/18 [Rx] glipiZIDE [Glucotrol] 10 mg PO BID tablet 03/19/18 [Rx] Apixaban [Eliquis] 5 mg PO BID 05/20/18 [History] Insulin LISPRO [HumaLOG] 0 units SQ TIDAC PRN 05/20/18 [History] Sitagliptin Phosphate [Januvia] 50 mg PO DAILY 05/20/18 [History] Allergy/AdvReac Type Severity Reaction Status Date / Time Penicillins Allergy Anaphylaxis Verified 02/10/18 11:39 - Meds/Allergy Pre-op Review Medications Reviewed: Yes Allergies Reviewed: Yes Beta Blockers on Current Med List: Yes If Beta Blockers taken, Date/Time (Last Dose taken): 05/21/2018 at 2155 Anesthesia Results - Labs 05/22/18 03:02 05/22/18 03:02 - Imaging EKG: report reviewed (03/15/2018 SINUS RHYTHM WITH PACs LOW QRS VOLTAGE) Additional studies: 03/11/2018 Echo Impressions: LVEF 60%. Mild left ventricular diastolic dysfunction. RV size is not optimally visualized. Function is normal by Doppler. Mild mitral regurgitation. Mild tricuspid regurgitation. No pulmonary hypertension. One out of 2 bubble studies was weakly positive for interatrial right to left shunting. 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
[2018-05-22] MEDS ORDERED: D5% in 0.9% NACL 1,000 ML IVC SCH (11:10)
--- NOTE | 2018-05-22 11:45 | Internal Med Progress Note ---
Hospitalist Progress Note - Encounter Date of Encounter: 05/22/18 Time of Encounter: 11:45 - Subjective Interval History: Seen and evaluated at bedside. She reports feeling better today. Reports getting out of bed to use the bedside commode, denies lightheadedness, dizziness, palpitation or shortness of breath. had a BM today, denies seeing blood in the stool. - Exam Vitals: Temp Pulse Resp BP Pulse Ox 98.5 F 65 16 124/47 97 05/22/18 11:37 05/22/18 11:37 05/22/18 11:37 05/22/18 11:37 05/22/18 11:37 Exam: General: Alert and oriented 4. In no acute distress. Skin: Normal color, no rash, no lesions. Cardiovascular: RRR, Normal S1 & S2, no rubs, murmurs or gallops. Lungs: Clear to auscultation bilaterally,, no wheezes or crackles. Abdomen: Soft, non-tender, no rigidity. NABS in all 4 quadrants Extremities: No edema or tenderness. Neurological: CN II-XII intact. Rest of the physical exam is non contributory - Assessment and Plan (1) Gastrointestinal bleed Current Visit: Yes Status: Acute Assessment and Plan: S/P EGD: Examination of esophagus was normal. A scatter moderate inflammation characterized by congestion and a lotion was found in the gastric antrum. The examined duodenum was normal. Plan Patient scheduled for colonoscopy today continue PPI 40mg/IV BID On sulcrafate 1gm PO TID NPO On D5NS @50 for maintenance fluids to avoid hypoglycemia Will transfuse 1 PRBC CBC 1 hour Post transfusion (2) Anemia Current Visit: Yes Status: Acute Assessment and Plan: acute on chronic due to GI bleeding. Plan of care as above. (3) Type 2 diabetes mellitus without complication Current Visit: Yes Status: Chronic Assessment and Plan: Continue lispro high dose sliding scale every 6 hours. As patient NPO. (4) Chronic CHF (congestive heart failure) Current Visit: Yes Status: Chronic Assessment and Plan: Patient is euvolemic. Plan Strict intake and output daily weight Will resume home dose of furosemide (5) CAD (coronary artery disease) Current Visit: Yes Status: Chronic Assessment and Plan: We will continue atorvastatin 40 mg by mouth daily. Aspirin has been held due to GI bleed. (6) HTN (hypertension) Current Visit: Yes Status: Chronic Assessment and Plan: Blood pressure is well controlled. Patient is on metoprolol 12.5 mg by mouth twice a day. Started on furosemide 20 mg by mouth daily. (7) Atrial fibrillation Current Visit: Yes Status: Chronic Assessment and Plan: Rate controlled on metoprolol. Apixaban has been held due to GI bleed (8) Fatigue Current Visit: Yes Status: Chronic Assessment and Plan: PT/OT ordered but patient refused. (9) Hypophosphatemia Current Visit: Yes Status: Acute Assessment and Plan: Electrolyte replaced. DVT Prophylaxis: Mechanical DVT prophylaxis with PlexiPulse. No chemical DVT prophylaxis due to GI bleed - Summary of Assessment and Plan Summary of Assessment and Plan: Patient to remain in the hospital to receive 1 unit of PRBCs. Scheduled for a colonoscopy today. - Time Spent with Patient Total time spent is greater than 50% in coordination of care (as documented) at patient's floor/unit and/or counseling patient: 25 - 35 minutes (34 minutes) Plan of Care Discussed with: patient (family and the nurse.) Internal Medicine: Result - Labs CBC & Chem 7: 05/22/18 03:02 05/22/18 03:02 Labs: Short CBC 05/21/18 05/21/18 05/22/18 Range/Units 15:35 21:49 03:02 WBC 6.0 7.8 5.3 (4.3-11.1) K/mcL Hgb 7.8 L 8.4 L 7.4 L (11.5-15.4) g/dL Hct 25.0 L 26.5 L 23.4 L (35.3-44.9) % Plt Count 265 284 254 (140-400) K/mcL Neutrophils # 3.8 4.6 2.9 (1.6-8.9) K/mcL BMP 05/22/18 03:02 Sodium 137 Potassium 4.4 Chloride 107 Carbon Dioxide 27 BUN 10 Creatinine 0.83 Glucose 210 H Calcium 8.2 L Consult Discharge Plan - Plan Referrals: NONE,PCP [Primary Care Provider] - __ (1) Gastrointestinal bleed Qualifiers: GI bleed type/associated pathology: melena Qualified Code(s): K92.1 - Melena (2) Anemia Qualifiers: Anemia type: iron deficiency Iron deficiency anemia type: chronic blood loss Qualified Code(s): D50.0 - Iron deficiency anemia secondary to blood loss (chronic) (3) Type 2 diabetes mellitus without complication Qualifiers: (4) Chronic CHF (congestive heart failure) Qualifiers: Heart failure type: diastolic Qualified Code(s): I50.32 - Chronic diastolic (congestive) heart failure (5) CAD (coronary artery disease) Qualifiers: Coronary Disease-Associated Artery/Lesion type: [place] artery [place] vs. transplanted heart: [place] heart Associated angina: without angina Qualified Code(s): I25.10 - Atherosclerotic heart disease of [place] coronary artery without angina pectoris (6) HTN (hypertension) Qualifiers: Hypertension type: essential hypertension Qualified Code(s): I10 - Essential (primary) hypertension (7) Atrial fibrillation Qualifiers: Atrial fibrillation type: paroxysmal Qualified Code(s): I48.0 - Paroxysmal atrial fibrillation (8) Fatigue Qualifiers: Fatigue type: other Qualified Code(s): R53.83 - Other fatigue
[2018-05-22] MEDS ORDERED: *HR* Propofol 200 MG/20 ML VIAL IVP ONE (12:27)
[2018-05-22] MEDS: Sucralfate 1 GM TABLET PO SCH ×4 (14:18→21:10)
[2018-05-22] MEDS: ALPRAZolam 0.5 MG TABLET PO PRN (17:45)
[2018-05-22] MEDS ORDERED: D5% in Water 1,000 ML IVC PRN (20:15)
[2018-05-22] MEDS ORDERED: *HR* Dextrose 50 % in Water (Syg) 50 ML SYRINGE IVP PRN (20:15)
[2018-05-22] MEDS ORDERED: Dextrose Gel 15 GM/37.5 ML TUBE PO PRN (20:15)
[2018-05-22 20:47] LABS: Basophils % 0.4 %; Eosinophils # 0.2 K/mcL (0.0-0.6); Eosinophils % 4.9 %; Hematocrit 27.4 % (35.3-44.9); Hemoglobin 8.7 g/dL (11.5-15.4); Immature Granulocytes % 0.2 % (0-4); Lymphocytes # 1.6 K/mcL (0.6-4.6); Lymphocytes % 31.9 %; Mean Corpuscular HGB Conc 31.8 g/dL (31.6-35.5); Mean Corpuscular Hemoglobin 29.8 pg (28.0-33.3); Mean Corpuscular Volume 93.8 fL (83.0-100.0); Mean Platelet Volume 9.4 fL (9.4-12.4); Monocytes # 0.5 K/mcL (0.0-1.3); Monocytes % 9.4 %; Neutrophils # 2.6 K/mcL (1.6-8.9); Platelet Count 256 K/mcL (140-400); Red Blood Count 2.92 M/mcL (3.82-4.97); Red Cell Distribution Width 16.2 % (11.5-14.5); Segmented Neutrophils % 53.2 %
[2018-05-22] MEDS: metroNIDAZOLE 500 MG TABLET PO SCH (22:31)
[2018-05-23] MEDS ORDERED: Acetaminophen 325 MG TABLET PO ONE (00:49)
[2018-05-23 04:10] LABS: Basophils % 0.2 %; Eosinophils # 0.2 K/mcL (0.0-0.6); Eosinophils % 4.2 %; Hematocrit 25.1 % (35.3-44.9); Immature Granulocytes % 0.2 % (0-4); Lymphocytes # 1.8 K/mcL (0.6-4.6); Lymphocytes % 36.4 %; Mean Corpuscular HGB Conc 31.9 g/dL (31.6-35.5); Mean Corpuscular Hemoglobin 29.6 pg (28.0-33.3); Mean Platelet Volume 9.5 fL (9.4-12.4); Monocytes # 0.5 K/mcL (0.0-1.3); Monocytes % 9.9 %; Neutrophils # 2.4 K/mcL (1.6-8.9); Platelet Count 250 K/mcL (140-400); Red Cell Distribution Width 16.5 % (11.5-14.5); Segmented Neutrophils % 49.1 %
[2018-05-23] MEDS: Pantoprazole 40 MG VIAL IVP SCH (06:42)
[2018-05-23 08:06] LABS: Bilirubin,Urine Negative (Negative); Blood,Urine Negative (Negative); Clarity,Urine Clear (Clear); Color,Urine Yellow (Yellow); Glucose,Urine (UA) >=1000 mg/dL (Normal); Ketones,Urine Negative (Negative); Leukocyte Esterase,Urine Negative (Negative); Nitrite,Urine Negative (Negative); PH,Urine 5.5 pH Units (5.0-8.0); Protein,Urine Negative (Neg-Trace); Specific Gravity,Urine 1.013 (1.010-1.025); Urobilinogen,Urine Normal (Normal)
[2018-05-23] MEDS: Insulin LISPRO 300 UNITS/3 ML VIAL SQ SCH ×4 (08:32→20:45)
[2018-05-23] MEDS: metroNIDAZOLE 500 MG TABLET PO SCH ×3 (08:33→20:43)
[2018-05-23] MEDS: Furosemide 20 MG TABLET PO SCH (08:33)
[2018-05-23] MEDS: Sucralfate 1 GM TABLET PO SCH ×4 (08:33→20:43)
[2018-05-23] MEDS: ALPRAZolam 0.5 MG TABLET PO PRN ×2 (08:36→20:43)
--- NOTE | 2018-05-23 09:10 | Internal Med Progress Note ---
Hospitalist Progress Note - Encounter Date of Encounter: 05/23/18 Time of Encounter: 09:08 - Subjective Interval History: Evaluated at bedside. Patient reports feeling well, but recalls feeling warm overnight. denies abdominal pain, nausea and vomiting. patient spiked a fever of 100.4 and 101.2 overnight. - Exam Vitals: Temp Pulse Resp BP Pulse Ox 98.3 F 71 18 138/61 95 05/23/18 07:36 05/23/18 07:36 05/23/18 07:36 05/23/18 07:36 05/23/18 07:36 Exam: General: Alert and oriented 4. In no acute distress. Skin: Normal color, no rash, no lesions. Cardiovascular: RRR, Normal S1 & S2, no rubs, murmurs or gallops. Lungs: Clear to auscultation bilaterally,, no wheezes or crackles. Abdomen: Soft, non-tender to deep or superficial palpation, no rigidity. NABS in all 4 quadrants Extremities: No edema or tenderness. Neurological: CN II-XII intact. Rest of the physical exam is non contributory - Assessment and Plan (1) Diverticulosis of sigmoid colon Current Visit: Yes Status: Acute Assessment and Plan: Patient s/p colonoscopy. Plan GI recommended to start Ciprofloxacin 500mg/PO BID and metronidazole 500mg/PO TID for 7 days. As patient spike a fever of 101.4 overnight in the event of a colonoscopy. Will order a CT abd/Pelv with PO contrast. NPO until CT abd resulted gentle IV hydration with D5NS @50mls/hr to avoid hypoglycemia Blood culture sent f/u biopsy report. (2) Gastrointestinal bleed Current Visit: Yes Status: Resolved Assessment and Plan: No signs of active bleeding. Patient has received 2 units of PRBCs Plan Will continue to monitor continue Pantoprazole 40mg/IV daily On sucralfate 1gm/PO TID will consider transfusing if Hb <7, Hct <23 or patient becomes symptomatic. (3) Anemia Current Visit: Yes Status: Chronic Assessment and Plan: Acute on chronic Plan of care as above (4) Type 2 diabetes mellitus without complication Current Visit: Yes Status: Chronic Assessment and Plan: Blood sugar is well controlled Continue Lispro sliding scale Q6HR as patient NPO (5) Chronic CHF (congestive heart failure) Current Visit: Yes Status: Chronic Assessment and Plan: Fluid balance negative 2 litters. Patient is euvolemic. Plan Continue furosemide 20mg/PO daily Daily weight strict intake and output (6) CAD (coronary artery disease) Current Visit: Yes Status: Chronic Assessment and Plan: continue atorvastatin. will add aspirin 81mg/PO daily. EDG and colonoscopy with no signs of active bleeding. (7) HTN (hypertension) Current Visit: Yes Status: Chronic Assessment and Plan: BP well controlled. Continue home medications patient is on Metoprolol and furosemide. (8) Atrial fibrillation Current Visit: Yes Status: Chronic Assessment and Plan: rate controlled on Metoprolol. Continue current medication. Oral anticoagulant held due to GI bleed. (9) Fatigue Current Visit: Yes Status: Chronic (10) Hypophosphatemia Current Visit: Yes Status: Acute (11) Fever Current Visit: Yes Status: Acute Assessment and Plan: Patient spike a fever of 101.4 overnight. unclear etiology chest x-ray possible atelectasis vs pneumonia b/c sent CT Abd/pelvis w/ PO contrast incentive spirometry. DVT Prophylaxis: Mechanical DVT prophylaxis. No chemical DVT prophylaxis due to GI bleed. - Summary of Assessment and Plan Summary of Assessment and Plan: Patient to remain in the hospital for monitoring for at least 24 hours as patient spike a fever of 101.4 overnight. - Time Spent with Patient Total time spent is greater than 50% in coordination of care (as documented) at patient's floor/unit and/or counseling patient: Greater than 35 minutes (40) Plan of Care Discussed with: patient (and the nurse.) Internal Medicine: Result - Labs CBC & Chem 7: 05/23/18 03:52 05/23/18 10:22 Labs: Short CBC 05/22/18 05/23/18 Range/Units 20:37 03:52 WBC 4.9 5.0 (4.3-11.1) K/mcL Hgb 8.7 L 8.0 L (11.5-15.4) g/dL Hct 27.4 L 25.1 L (35.3-44.9) % Plt Count 256 250 (140-400) K/mcL Neutrophils # 2.6 2.4 (1.6-8.9) K/mcL Urine 05/23/18 Range/Units 07:45 Urine Color Yellow (Yellow) Urine Clarity Clear (Clear) Urine pH 5.5 (5.0-8.0) pH Units Ur Specific [place] 1.013 (1.010-1.025) Urine Protein Negative (Neg-Trace) mg/dL Urine Glucose (UA) >=1000 H (Normal) mg/dL - Impressions Impressions Chest X-Ray 05/23/18 03:23 IMPRESSION: Left basilar atelectasis or pneumonia. D/ / Derrek Ramírez MD / Derrek Ramírez MD Interpreting Provider: Derrek Ramírez MD Consult Discharge Plan - Plan Referrals: NONE,PCP [Primary Care Provider] - _ (2) Gastrointestinal bleed Qualifiers: GI bleed type/associated pathology: melena Qualified Code(s): K92.1 - Melena (3) Anemia Qualifiers: Anemia type: iron deficiency Iron deficiency anemia type: chronic blood loss Qualified Code(s): D50.0 - Iron deficiency anemia secondary to blood loss (chronic) (4) Type 2 diabetes mellitus without complication Qualifiers: (5) Chronic CHF (congestive heart failure) Qualifiers: Heart failure type: diastolic Qualified Code(s): I50.32 - Chronic diastolic (congestive) heart failure (6) CAD (coronary artery disease) Qualifiers: Coronary Disease-Associated Artery/Lesion type: [place] artery [place] vs. transplanted heart: [place] heart Associated angina: without angina Qualified Code(s): I25.10 - Atherosclerotic heart disease of [place] coronary artery without angina pectoris (7) HTN (hypertension) Qualifiers: Hypertension type: essential hypertension Qualified Code(s): I10 - Essential (primary) hypertension (8) Atrial fibrillation Qualifiers: Atrial fibrillation type: paroxysmal Qualified Code(s): I48.0 - Paroxysmal atrial fibrillation (9) Fatigue Qualifiers: Fatigue type: other Qualified Code(s): R53.83 - Other fatigue (11) Fever Qualifiers: Fever type: unspecified Qualified Code(s): R50.9 - Fever, unspecified
[2018-05-23] MEDS ORDERED: D5% in 0.9% NACL 1,000 ML IVC SCH (09:15)
[2018-05-23] MEDS ORDERED: Isovue-370 500 ML INFUS..BTL PO ONE (09:48)
[2018-05-23 11:06] LABS: BUN/Creatinine Ratio 12 (6-26); Blood Urea Nitrogen 12 mg/dL (8-23); Calcium 8.6 mg/dL (8.6-10.3); Carbon Dioxide 26 mEq/L (23-29); Chloride 107 mEq/L (98-107); Glucose 205 mg/dL (70-105); Magnesium 1.8 mg/dL (1.6-2.6); Osmolality,Calculated 294 (280-300); Potassium 3.9 mEq/L (3.5-5.1); Sodium 139 mEq/L (136-145); eGFR For Non-African Americans 53 (> 60)
[2018-05-23] MEDS ORDERED: Acetaminophen 325 MG TABLET PO PRN (16:57)
[2018-05-24 05:22] LABS: Hematocrit 25.6 % (35.3-44.9); Hemoglobin 8.2 g/dL (11.5-15.4); Mean Corpuscular Volume 93.1 fL (83.0-100.0); Red Blood Count 2.75 M/mcL (3.82-4.97)
[2018-05-24 05:23] LABS: Basophils % 0.4 %; Eosinophils # 0.3 K/mcL (0.0-0.6); Eosinophils % 6.4 %; Immature Granulocytes % 0.2 % (0-4); Lymphocytes # 1.6 K/mcL (0.6-4.6); Lymphocytes % 32.9 %; Mean Corpuscular Hemoglobin 29.8 pg (28.0-33.3); Mean Platelet Volume 9.9 fL (9.4-12.4); Monocytes # 0.6 K/mcL (0.0-1.3); Monocytes % 11.8 %; Neutrophils # 2.3 K/mcL (1.6-8.9); Platelet Count 272 K/mcL (140-400); Red Cell Distribution Width 16.2 % (11.5-14.5); Segmented Neutrophils % 48.3 %
[2018-05-24] MEDS: Pantoprazole 40 MG VIAL IVP SCH (05:39)
[2018-05-24 05:40] LABS: BUN/Creatinine Ratio 13 (6-26); Blood Urea Nitrogen 13 mg/dL (8-23); Calcium 8.5 mg/dL (8.6-10.3); Carbon Dioxide 26 mEq/L (23-29); Chloride 106 mEq/L (98-107); Glucose 261 mg/dL (70-105); Magnesium 1.8 mg/dL (1.6-2.6); Osmolality,Calculated 295 (280-300); Phosphorous 2.7 mg/dL (2.7-4.5); Potassium 4.1 mEq/L (3.5-5.1); Sodium 138 mEq/L (136-145); eGFR For Non-African Americans 53 (> 60)
[2018-05-24 07:46] VITALS: BP 123/56
[2018-05-24] MEDS: Sucralfate 1 GM TABLET PO SCH ×2 (08:18→12:26)
[2018-05-24] MEDS: Furosemide 20 MG TABLET PO SCH (08:18)
[2018-05-24] MEDS: metroNIDAZOLE 500 MG TABLET PO SCH (08:18)
[2018-05-24] MEDS: Insulin LISPRO 300 UNITS/3 ML VIAL SQ SCH ×2 (08:19→12:25)
--- NOTE | 2018-05-24 08:39 | Discharge Summary ---
- NOTES TO OUTPATIENT PROVIDER Notes to Outpatient Provider: F/u with your patient portal representative within 1-2 weeks of hospital discharge. Orders not resulted at time of discharge: Pending orders 05/22/18 13:53 Surgical Pathology [PTH] Routine 05/23/18 03:52 Culture,Blood [BC] Stat Date of Encounter: 05/24/18 Time of Encounter: 08:34 - Discharge Diagnosis (1) Gastrointestinal bleed Priority: Primary Status: Resolved Qualifiers: GI bleed type/associated pathology: melena Qualified Code(s): K92.1 - Melena (2) Diverticulosis of sigmoid colon Priority: Secondary Status: Chronic (3) Anemia Priority: Secondary Status: Chronic Qualifiers: Anemia type: iron deficiency Iron deficiency anemia type: chronic blood loss Qualified Code(s): D50.0 - Iron deficiency anemia secondary to blood loss (chronic) (4) Chronic CHF (congestive heart failure) Priority: Secondary Status: Chronic Qualifiers: Heart failure type: diastolic Qualified Code(s): I50.32 - Chronic diastolic (congestive) heart failure (5) CAD (coronary artery disease) Priority: Secondary Status: Chronic Qualifiers: Coronary Disease-Associated Artery/Lesion type: [place] artery [place] vs. transplanted heart: [place] heart Associated angina: without angina Qualified Code(s): I25.10 - Atherosclerotic heart disease of [place] coronary artery without angina pectoris (6) HTN (hypertension) Priority: Secondary Status: Chronic Qualifiers: Hypertension type: essential hypertension Qualified Code(s): I10 - Essential (primary) hypertension (7) Atrial fibrillation Priority: Secondary Status: Chronic Qualifiers: Atrial fibrillation type: paroxysmal Qualified Code(s): I48.0 - Paroxysmal atrial fibrillation (8) Fatigue Priority: Secondary Status: Chronic Qualifiers: Fatigue type: other Qualified Code(s): R53.83 - Other fatigue (9) Hypophosphatemia Priority: Secondary Status: Resolved (10) Fever Priority: Secondary Status: Resolved Qualifiers: Fever type: unspecified Qualified Code(s): R50.9 - Fever, unspecified (11) Diabetes Priority: Secondary Status: Chronic Qualifiers: Diabetes mellitus type: type 2 Diabetes mellitus complication status: with unspecified complications Qualified Code(s): E11.8 - Type 2 diabetes mellitus with unspecified complications; Z79.4 - halfway (current) use of insulin Hospital course: Ms. Frankel is a 82 year old female past medical history of coronary artery disease and status post stent placement in 2001, diabetes, hypertension and A. fib. Patient presented to the emergency room due to 4 days of dark stool. Reported that she was recently started on apixaban by her patient portal representative due to paroxysmal A. fib. Patient admitted to the hospital due to GI bleed, transfused 2 unit of PRBCs, underwent EGD and colonoscopy. Endoscopy report the examined esophagus was normal, scattered moderate inflammation characterized by congestion and nausea and found in the gastric antrum. The examined duodenum was normal. Colonoscopy report: Internal hemorrhoids. Diverticulosis of the sigmoid colon, mucosal ulceration. GI recommended the patient to be on flagyl/Cipro BID x10 days. Patient being discharged on PO antibiotics. Apixaban has been discontinued, patient recommended to follow up with her patient portal representative to discuss re-starting the AC if needed. On 05/23/2018 the day following the colonoscopy patient spiked a fever to 101.5, CT abdomen and pelvis was done: No acute abnormality found. Patient H&H has remained stable post transfusion 8.2&25.6, and no more melena has been sent. Patient is hemodynamically is stable to be discharged home. - Time Spent with Patient Total time spent providing and/or coordinating discharge services: Greater than 30 minutes (40 minutes) - Discharge Medications Prescriptions: Ciprofloxacin [Cipro] 500 mg PO BIDAC 6 Days #12 tablet Ferrous Sulfate 325 mg PO DAILY@0800 30 Days #30 tablet metroNIDAZOLE [Flagyl] 500 mg PO TID 6 Days #18 tablet Omeprazole [PriLOSEC] 20 mg PO BIDAC 30 Days #60 cap Home Medications: ALPRAZolam [Xanax 0.5 MG Tablet] 0.5 mg PO TID PRN 02/14/18 [History] Ascorbic Acid [Vitamin C] 500 mg PO DAILY 02/14/18 [History] Aspirin Enteric Coated [Aspirin EC] 81 mg PO DAILY 02/14/18 [History] Atorvastatin [Lipitor] 40 mg PO HS 02/14/18 [History] Cholecalciferol (D-3) [Vitamin D] 5,000 unit PO DAILY 02/14/18 [History] Fish Oil/Dha/Epa [Fish Oil 1,200 mg Fish Oil] 1 cap PO BID 02/14/18 [History] Furosemide [Lasix] 20 mg PO DAILY 02/14/18 [History] Insulin Glargine,Hum.rec.anlog [Lantus Solostar] 5 units SQ BID 02/14/18 [History] Metoprolol [Lopressor] 25 mg PO DAILY 02/14/18 [History] Vitamin B Complex Vit C No.4 [Super B Complex] 1 tab PO DAILY 02/14/18 [History] Acetaminophen [Tylenol] 650 mg PO Q6HR PRN tablet 03/19/18 [Rx] Nitroglycerin 0.4 mg SL Q5MIN PRN tab.subl 03/19/18 [Rx] Polyethylene Glycol 3350 [MiraLAX] 17 gm PO DAILY PRN powd.pack 03/19/18 [Rx] glipiZIDE [Glucotrol] 10 mg PO BID tablet 03/19/18 [Rx] Insulin LISPRO [HumaLOG] 0 units SQ TIDAC PRN 05/20/18 [History] Sitagliptin Phosphate [Januvia] 50 mg PO DAILY 05/20/18 [History] Ciprofloxacin [Cipro] 500 mg PO BIDAC 6 Days #12 tablet 05/24/18 [Rx] Ferrous Sulfate 325 mg PO DAILY@0800 30 Days #30 tablet 05/24/18 [Rx] Omeprazole [PriLOSEC] 20 mg PO BIDAC 30 Days #60 cap 05/24/18 [Rx] metroNIDAZOLE [Flagyl] 500 mg PO TID 6 Days #18 tablet 05/24/18 [Rx] Allergies/Adverse Reactions: Allergy/AdvReac Type Severity Reaction Status Date / Time Penicillins Allergy Anaphylaxis Verified 02/10/18 11:39 Date of admission: 05/20/18 18:26 Primary care physician: PCP NONE Consults: 05/20/18 19:45 Consult to Gastroenterology [CONS] Routine Consulting Provider: Gastroenterology Ruba Reason for Consult: patient recently started on apixaban presenting with 4 days of dark stool and drop in Hgb to 7.1. Call Completed: No 05/21/18 09:37 Consult to Physical Therapy [CONS] Routine Comment: Evaluate, develop and implement POC Reason for Consult: fatigue Does patient have active BEDREST order?: No Is patient medically & hemodynamically stable?: Yes - Constitutional Vitals: Temp Pulse Resp BP Pulse Ox 98.0 F 65 12 123/56 96 05/24/18 07:43 05/24/18 07:43 05/24/18 07:43 05/24/18 07:43 05/24/18 07:43 Exam: General: Alert and oriented 4. In no acute distress. Skin: Normal color, no rash, no lesions. Cardiovascular: RRR, Normal S1 & S2, no rubs, murmurs or gallops. Lungs: Clear to auscultation bilaterally, no wheezes or crackles. Abdomen: Soft, non-tender to deep or superficial palpation, no rigidity. NABS in all 4 quadrants Extremities: No edema or tenderness. Neurological: CN II-XII intact. Rest of the physical exam is non contributory - Patient Status Disposition: Home, Self-Care Condition: Good Functional capacity at discharge: uses cane/walker Overall status at discharge: patient is back to baseline - Discharge Instructions Follow Up With: NONE,PCP [Primary Care Provider] - - Diet and Activity Activity: resume usual activities as tolerated Diet: diabetic diet
[2018-05-24] MEDS ORDERED: Aspirin Enteric Coated 81 MG Tablet PO SCH (09:00)
== END 2018-05-24 13:55 | disposition home or self-care (01) ==
LOC: SUATTDRO 18:26 → INTOOBSV 18:26 → 2NENU 18:26
PROVIDERS: ADMIT Hospitalist; ATTEND Internal Medicine
PROC: ENDOEBX (2018-05-21 12:30)
PROC: ENDOCBX (2018-05-22 17:30)

== ENCOUNTER 2018-06-02 18:50 | Observation (INO) ==
--- NOTE | 2018-06-02 19:12 | Emergency Department Note ---
Disposition Clinical Impression: Weakness GI bleed Qualifiers: GI bleed type/associated pathology: unspecified gastrointestinal hemorrhage type Qualified Code(s): K92.2 - Gastrointestinal hemorrhage, unspecified Anemia Qualifiers: Anemia type: unspecified type Qualified Code(s): D64.9 - Anemia, unspecified Disposition: Admitted As Inpatient Condition: Fair Referrals: Radha Purcell, PhD [Primary Care Provider] - Forms: ED Satisfaction Letter General Adult HPI - General Chief complaint: ED GI Bleed Stated complaint: "rectal bleeding" Time Seen by Provider: 06/02/18 18:58 Source: patient, family Mode of arrival: ambulatory Limitations: no limitations Nursing Notes Reviewed: Yes Vital Signs Reviewed: Yes - History of Present Illness HPI Narrative: 82-year-old female with significant past medical history of hypertension and previous GI bleed presenting to the emergency department with chief complaint of dark-colored stools and weakness. According to the patient she was admitted approximately 6 weeks ago for a lower GI bleed. She received 2 units of packed red blood cells at that time. Colonoscopy and endoscopy completed showed ulcerations of her colon but no other acute abnormality. Patient states she was doing well but over the past 2-3 weeks she has been progressively more weak. Today when she was getting as a shower she was so weak she needed her daughter to help her. This is not normal for her. Patient denies any other symptoms at home. Denies any chest pain, shortness breath, abdominal pain, nausea or vomiting. Patient states she continues to have dark-colored stools but denies any bright red blood per rectum or hematemesis. Patient does take a baby aspirin daily but no other anticoagulation. Pain Scale: 0 - Related Data Home Medications Medication Instructions Recorded Confirmed ALPRAZolam [Xanax 0.5 MG Tablet] 0.5 mg PO TID PRN 02/14/18 05/20/18 Ascorbic Acid [Vitamin C] 500 mg PO DAILY 02/14/18 05/20/18 Aspirin Enteric Coated [Aspirin EC] 81 mg PO DAILY 02/14/18 05/20/18 Atorvastatin [Lipitor] 40 mg PO HS 02/14/18 05/20/18 Cholecalciferol (D-3) [Vitamin D] 5,000 unit PO DAILY 02/14/18 05/20/18 Fish Oil/Dha/Epa [Fish Oil 1,200 1 cap PO BID 02/14/18 05/20/18 mg Fish Oil] Furosemide [Lasix] 20 mg PO DAILY 02/14/18 05/20/18 Insulin Glargine,Hum.rec.anlog 5 units SQ BID 02/14/18 05/20/18 [Lantus Solostar] Metoprolol [Lopressor] 25 mg PO DAILY 02/14/18 05/20/18 Vitamin B Complex Vit C No.4 1 tab PO DAILY 02/14/18 05/20/18 [Super B Complex] Insulin LISPRO [HumaLOG] 0 units SQ TIDAC PRN 05/20/18 05/20/18 Sitagliptin Phosphate [Januvia] 50 mg PO DAILY 05/20/18 05/20/18 Previous Rx's Medication Instructions Recorded Acetaminophen [Tylenol] 650 mg PO Q6HR PRN tablet 03/19/18 Nitroglycerin 0.4 mg SL Q5MIN PRN tab.subl 03/19/18 Polyethylene Glycol 3350 [MiraLAX] 17 gm PO DAILY PRN powd.pack 03/19/18 glipiZIDE [Glucotrol] 10 mg PO BID tablet 03/19/18 Ferrous Sulfate 325 mg PO DAILY@0800 30 Days #30 05/24/18 tablet Omeprazole [PriLOSEC] 20 mg PO BIDAC 30 Days #60 cap 05/24/18 Allergies Allergy/AdvReac Type Severity Reaction Status Date / Time Penicillins Allergy Anaphylaxis Verified 06/02/18 18:56 All systems ED: reviewed and negative except as stated. Constitutional: Reports: weakness. Denies: fever, chills Eyes: Reports: as per HPI ENT ED: Reports: as per HPI Cardiovascular: Denies: chest pain, palpitations, dyspnea on exertion Respiratory: Denies: cough, dyspnea, wheezes Gastrointestinal: Reports: melena. Denies: abdominal pain, nausea, vomiting Genitourinary: Reports: as per HPI Musculoskeletal: Reports: as per HPI Integumentary: Reports: as per HPI Neurological: Reports: weakness. Denies: numbness, paresthesias Psychiatric: Reports: as per HPI Endocrine: Reports: as per HPI Hematological/Lymphatic: Reports: as per HPI Allergic/Immunologic: Reports: as per HPI Past Medical History - Past Medical History Attestation: Yes The following information was validated with the patient. Medical history: Reports: arthritis, CHF, diabetes, GI bleed, hyperlipidemia, myocardial infarction Surgical history: Reports: angioplasty/stent, appendectomy, hysterectomy Psychiatric history: Reports: anxiety - Social History Smoking Status: Never smoker Smokeless Tobacco Status: No Alcohol use: Reports: none Drug use: Reports: none Physical Exam - General Limitations: no limitations General appearance: alert, in no apparent distress - Head Head exam: atraumatic, normocephalic, normal inspection - Eye Eye exam: Present: normal appearance. Absent: scleral icterus, conjunctival injection - ENT ENT exam: normal exam, mucous membranes moist - Neck Neck exam: Present: normal inspection, full ROM. Absent: tenderness, meningismus - Chest Chest inspection: Present: normal inspection, symmetric chest wall rise. Absent: tenderness, rash - Respiratory Respiratory exam: Present: normal lung sounds bilaterally. Absent: respiratory distress, wheezes - Cardiovascular Cardiovascular exam: Present: regular rate, normal rhythm, normal heart sounds - Abdominal Exam Abdominal exam: Present: soft, Non-Tender. Absent: distention, guarding, rebound - Extremities Exam Extremities exam: Present: normal inspection, full ROM - Neurological Exam Neurological exam: Present: alert, oriented X3 - Psychiatric Psychiatric exam: Present: normal affect, normal mood - Skin Skin exam: Present: warm, intact Course Course Narrative: 82-year-old female presenting for a lower GI bleed. Patient has known ulcerations found on colonoscopy approximately 6 weeks ago. Patient states she has been progressively more weak. In triage patient was tachycardic but in the room she is no longer. Heart rate in the upper 90s. Hemodynamically stable. Alert and oriented 3. Physical exam benign. At this time will perform a GI workup including CBC, BMP, type and cross along with stool occult and EKG. Disposition most likely admission but pending results. Patient agrees with this plan. - Reevaluation(s) Reevaluation #1: Patient's laboratory analysis shows hemoglobin of 7.7. Due to patient's decre ased hemoglobin from 9.1-7.7 the past 5 days concern for increased GI bleeding. At this time will plan to admit the patient for further evaluation and workup of her GI bleed. Patient remains alert and oriented 3 and hemodynamically stable. Patient agrees with this plan. I spoke with the hospitalist grease monkey Dr. Felipe who agrees to accept the patient at this time. Vital Signs Temperature 98.0 F 11/11/18 18:54 Pulse Rate 101 06/02/18 18:54 Respiratory Rate 16 06/02/18 18:54 Blood Pressure 125/67 06/02/18 18:54 O2 Sat by Pulse Oximetry 95 06/02/18 18:54 Temperature 98.0 F 06/02/18 19:09 Pulse Rate 85 06/02/18 20:00 Respiratory Rate 19 06/02/18 20:00 Blood Pressure 124/53 06/02/18 20:00 O2 Sat by Pulse Oximetry 95 06/02/18 20:00 Oxygen Delivery Oxygen Delivery Room Air Medical Decision Making - Lab Data Result diagrams: 06/02/18 19:16 06/02/18 19:16 Lab Results 06/02/18 06/02/18 06/02/18 Range/Units 19:16 19:16 19:16 WBC 7.4 (4.3-11.1) K/mcL RBC 2.59 L (3.82-4.97) M/mcL Hgb 7.7 L (11.5-15.4) g/dL Hct 24.6 L (35.3-44.9) % MCV 95.0 (83.0-100.0) fL MCH 29.7 (28.0-33.3) pg MCHC 31.3 L (31.6-35.5) g/dL RDW 15.9 H (11.5-14.5) % Plt Count 353 (140-400) K/mcL MPV 9.2 L (9.4-12.4) fL Immature Gran % 0.7 (0-4) % Seg Neutrophils % 69.9 % Lymphocytes % 19.0 % Monocytes % 7.0 % Eosinophils % 3.0 % Basophils % 0.4 % Neutrophils # 5.2 (1.6-8.9) K/mcL Lymphocytes # 1.4 (0.6-4.6) K/mcL Monocytes # 0.5 (0.0-1.3) K/mcL Eosinophils # 0.2 (0.0-0.6) K/mcL Basophils # 0.0 (0.0-0.2) K/mcL PT 11.8 (9.4-12.1) Seconds INR 1.0 APTT 29.4 (26.0-36.0) Seconds Sodium 134 L (136-145) mEq/L Potassium 3.7 (3.5-5.1) mEq/L Chloride 99 (98-107) mEq/L Carbon Dioxide 25 (23-29) mEq/L BUN 19 (8-23) mg/dL Creatinine 1.14 (0.60-1.20) mg/dL Est GFR ( Amer) 55 L (> 60) Est GFR (Non-Af Amer) 46 L (> 60) BUN/Creatinine Ratio 17 (6-26) Glucose 400 H (70-105) mg/dL Calculated Osmolality 297 (280-300) Calcium 9.0 (8.6-10.3) mg/dL Blood Type Antibody Screen 06/02/18 Range/Units 19:16 WBC (4.3-11.1) K/mcL RBC (3.82-4.97) M/mcL Hgb (11.5-15.4) g/dL Hct (35.3-44.9) % MCV (83.0-100.0) fL MCH (28.0-33.3) pg MCHC (31.6-35.5) g/dL RDW (11.5-14.5) % Plt Count (140-400) K/mcL MPV (9.4-12.4) fL Immature Gran % (0-4) % Seg Neutrophils % % Lymphocytes % % Monocytes % % Eosinophils % % Basophils % % Neutrophils # (1.6-8.9) K/mcL Lymphocytes # (0.6-4.6) K/mcL Monocytes # (0.0-1.3) K/mcL Eosinophils # (0.0-0.6) K/mcL Basophils # (0.0-0.2) K/mcL PT (9.4-12.1) Seconds INR APTT (26.0-36.0) Seconds Sodium (136-145) mEq/L Potassium (3.5-5.1) mEq/L Chloride (98-107) mEq/L Carbon Dioxide (23-29) mEq/L BUN (8-23) mg/dL Creatinine (0.60-1.20) mg/dL Est GFR ( Amer) (> 60) Est GFR (Non-Af Amer) (> 60) BUN/Creatinine Ratio (6-26) Glucose (70-105) mg/dL Calculated Osmolality (280-300) Calcium (8.6-10.3) mg/dL Blood Type AB POSITIVE Antibody Screen POSITIVE - EKG Data EKG #1 EKG attestation: Yes I reviewed and interpreted this EKG. EKG results narrative: Sinus rhythm. PACs. 95 bpm. DE interval 142, QRS 93, QTC 458. No sign of acute ST segment elevation or ischemia. Compared to previous EKG completed on 05/20/2018 no significant changes noted
[2018-06-02 19:26] LABS: Basophils % 0.4 %; Eosinophils # 0.2 K/mcL (0.0-0.6); Hematocrit 24.6 % (35.3-44.9); Hemoglobin 7.7 g/dL (11.5-15.4); Immature Granulocytes % 0.7 % (0-4); Lymphocytes # 1.4 K/mcL (0.6-4.6); Mean Corpuscular HGB Conc 31.3 g/dL (31.6-35.5); Mean Corpuscular Hemoglobin 29.7 pg (28.0-33.3); Mean Platelet Volume 9.2 fL (9.4-12.4); Monocytes # 0.5 K/mcL (0.0-1.3); Neutrophils # 5.2 K/mcL (1.6-8.9); Platelet Count 353 K/mcL (140-400); Red Blood Count 2.59 M/mcL (3.82-4.97); Red Cell Distribution Width 15.9 % (11.5-14.5); Segmented Neutrophils % 69.9 %
[2018-06-02 19:35] LABS: Prothrombin Time 11.8 Seconds (9.4-12.1)
[2018-06-02 19:38] LABS: Activated Partial Thrombo Time 29.4 Seconds (26.0-36.0)
--- NOTE | 2018-06-02 19:43 | Emergency Department Note ---
Disposition Clinical Impression: Weakness GI bleed Qualifiers: GI bleed type/associated pathology: unspecified gastrointestinal hemorrhage type Qualified Code(s): K92.2 - Gastrointestinal hemorrhage, unspecified Anemia Qualifiers: Anemia type: unspecified type Qualified Code(s): D64.9 - Anemia, unspecified Disposition: Admitted As Inpatient Condition: Fair General Adult HPI - General Chief complaint: ED GI Bleed Stated complaint: "rectal bleeding" Time Seen by Provider: 06/02/18 18:58 Source: patient, family Mode of arrival: ambulatory Limitations: no limitations Nursing Notes Reviewed: Yes Vital Signs Reviewed: Yes - History of Present Illness Pain Scale: 0 - Related Data Home Medications Medication Instructions Recorded Confirmed ALPRAZolam [Xanax 0.5 MG Tablet] 0.5 mg PO TID PRN 02/14/18 05/20/18 Ascorbic Acid [Vitamin C] 500 mg PO DAILY 02/14/18 05/20/18 Aspirin Enteric Coated [Aspirin EC] 81 mg PO DAILY 02/14/18 05/20/18 Atorvastatin [Lipitor] 40 mg PO HS 02/14/18 05/20/18 Cholecalciferol (D-3) [Vitamin D] 5,000 unit PO DAILY 02/14/18 05/20/18 Fish Oil/Dha/Epa [Fish Oil 1,200 1 cap PO BID 02/14/18 05/20/18 mg Fish Oil] Furosemide [Lasix] 20 mg PO DAILY 02/14/18 05/20/18 Insulin Glargine,Hum.rec.anlog 5 units SQ BID 02/14/18 05/20/18 [Lantus Solostar] Metoprolol [Lopressor] 25 mg PO DAILY 02/14/18 05/20/18 Vitamin B Complex Vit C No.4 1 tab PO DAILY 02/14/18 05/20/18 [Super B Complex] Insulin LISPRO [HumaLOG] 0 units SQ TIDAC PRN 05/20/18 05/20/18 Sitagliptin Phosphate [Januvia] 50 mg PO DAILY 05/20/18 05/20/18 Previous Rx's Medication Instructions Recorded Acetaminophen [Tylenol] 650 mg PO Q6HR PRN tablet 03/19/18 Nitroglycerin 0.4 mg SL Q5MIN PRN tab.subl 03/19/18 Polyethylene Glycol 3350 [MiraLAX] 17 gm PO DAILY PRN powd.pack 03/19/18 glipiZIDE [Glucotrol] 10 mg PO BID tablet 03/19/18 Ferrous Sulfate 325 mg PO DAILY@0800 30 Days #30 05/24/18 tablet Omeprazole [PriLOSEC] 20 mg PO BIDAC 30 Days #60 cap 05/24/18 Allergies Allergy/AdvReac Type Severity Reaction Status Date / Time Penicillins Allergy Anaphylaxis Verified 06/02/18 18:56 Constitutional: Reports: weakness. Denies: fever, chills Eyes: Reports: as per HPI ENT ED: Reports: as per HPI Cardiovascular: Denies: chest pain, palpitations, dyspnea on exertion Respiratory: Denies: cough, dyspnea, wheezes Gastrointestinal: Reports: melena. Denies: abdominal pain, nausea, vomiting Genitourinary: Reports: as per HPI Musculoskeletal: Reports: as per HPI Integumentary: Reports: as per HPI Neurological: Reports: weakness. Denies: numbness, paresthesias Psychiatric: Reports: as per HPI Endocrine: Reports: as per HPI Hematological/Lymphatic: Reports: as per HPI Allergic/Immunologic: Reports: as per HPI Past Medical History - Past Medical History Medical history: Reports: arthritis, CHF, diabetes, GI bleed, hyperlipidemia, myocardial infarction Surgical history: Reports: angioplasty/stent, appendectomy, hysterectomy Psychiatric history: Reports: anxiety - Social History Smoking Status: Never smoker Smokeless Tobacco Status: No Alcohol use: Reports: none Drug use: Reports: none Physical Exam - General Limitations: no limitations General appearance: alert, in no apparent distress Course Vital Signs Temperature 98.0 F 06/02/18 18:54 Pulse Rate 101 06/02/18 18:54 Respiratory Rate 16 06/02/18 18:54 Blood Pressure 125/67 06/02/18 18:54 O2 Sat by Pulse Oximetry 95 06/02/18 18:54 Temperature 98.0 F 06/02/18 19:09 Pulse Rate 85 06/02/18 20:00 Respiratory Rate 19 06/02/18 20:00 Blood Pressure 124/53 06/02/18 20:00 O2 Sat by Pulse Oximetry 95 06/02/18 20:00 Oxygen Delivery Oxygen Delivery Room Air Medical Decision Making - Medical Records Medical records reviewed: Yes I reviewed the patient's medical records. - Lab Data Lab results reviewed: Yes I reviewed the patient's lab results. Result diagrams: 06/02/18 19:16 06/02/18 19:16 Lab Results 06/02/18 06/02/18 06/02/18 Range/Units 19:16 19:16 19:16 WBC 7.4 (4.3-11.1) K/mcL RBC 2.59 L (3.82-4.97) M/mcL Hgb 7.7 L (11.5-15.4) g/dL Hct 24.6 L (35.3-44.9) % MCV 95.0 (83.0-100.0) fL MCH 29.7 (28.0-33.3) pg MCHC 31.3 L (31.6-35.5) g/dL RDW 15.9 H (11.5-14.5) % Plt Count 353 (140-400) K/mcL MPV 9.2 L (9.4-12.4) fL Immature Gran % 0.7 (0-4) % Seg Neutrophils % 69.9 % Lymphocytes % 19.0 % Monocytes % 7.0 % Eosinophils % 3.0 % Basophils % 0.4 % Neutrophils # 5.2 (1.6-8.9) K/mcL Lymphocytes # 1.4 (0.6-4.6) K/mcL Monocytes # 0.5 (0.0-1.3) K/mcL Eosinophils # 0.2 (0.0-0.6) K/mcL Basophils # 0.0 (0.0-0.2) K/mcL PT 11.8 (9.4-12.1) Seconds INR 1.0 APTT 29.4 (26.0-36.0) Seconds Sodium 134 L (136-145) mEq/L Potassium 3.7 (3.5-5.1) mEq/L Chloride 99 (98-107) mEq/L Carbon Dioxide 25 (23-29) mEq/L BUN 19 (8-23) mg/dL Creatinine 1.14 (0.60-1.20) mg/dL Est GFR ( Amer) 55 L (> 60) Est GFR (Non-Af Amer) 46 L (> 60) BUN/Creatinine Ratio 17 (6-26) Glucose 400 H (70-105) mg/dL Calculated Osmolality 297 (280-300) Calcium 9.0 (8.6-10.3) mg/dL Stool Occult Bld Scrn (Negative) Blood Type Antibody Screen 06/02/18 06/02/18 Range/Units 19:16 20:10 WBC (4.3-11.1) K/mcL RBC (3.82-4.97) M/mcL Hgb (11.5-15.4) g/dL Hct (35.3-44.9) % MCV (83.0-100.0) fL MCH (28.0-33.3) pg MCHC (31.6-35.5) g/dL RDW (11.5-14.5) % Plt Count (140-400) K/mcL MPV (9.4-12.4) fL Immature Gran % (0-4) % Seg Neutrophils % % Lymphocytes % % Monocytes % % Eosinophils % % Basophils % % Neutrophils # (1.6-8.9) K/mcL Lymphocytes # (0.6-4.6) K/mcL Monocytes # (0.0-1.3) K/mcL Eosinophils # (0.0-0.6) K/mcL Basophils # (0.0-0.2) K/mcL PT (9.4-12.1) Seconds INR APTT (26.0-36.0) Seconds Sodium (136-145) mEq/L Potassium (3.5-5.1) mEq/L Chloride (98-107) mEq/L Carbon Dioxide (23-29) mEq/L BUN (8-23) mg/dL Creatinine (0.60-1.20) mg/dL Est GFR ( Amer) (> 60) Est GFR (Non-Af Amer) (> 60) BUN/Creatinine Ratio (6-26) Glucose (70-105) mg/dL Calculated Osmolality (280-300) Calcium (8.6-10.3) mg/dL Stool Occult Bld Scrn Positive A (Negative) Blood Type AB POSITIVE Antibody Screen POSITIVE - EKG Data EKG #1 EKG attestation: Yes I reviewed and interpreted this EKG. EKG results narrative: EKG shows a normal sinus rhythm with PACs. Ventricular rate 95. No acute ST segment elevation or depression. Attestation Statement - Attestation Attestation: I, David Skelton MD, personally evaluated this patient and discussed their management with the resident physician. I reviewed the resident's note and agree with the documented findings, medical decision making, and plan of care. 82-year-old female presents to the emergency department with a complaint of melena and loose stools and increasing generalized weakness. She was discharged from the hospital 9 days ago after she had an episode of GI bleeding. She was admitted and received 2 units of blood. She had an EGD which showed gastritis. She had a colonoscopy which showed ulcers in her colon as well as colitis and diverticulitis. She denies any abdominal pain. Family reports that ever since being discharged from the hospital she has continued to have coffee ground appearing bowel movements. No vomiting. No nausea. No syncope. She just complains of increasing generalized weakness. They report that after receiving the blood her hemoglobin was 8.2 and then she had it rechecked several days ago and it was up to 9.1. On examination patient is a well-developed well-nourished well-appearing elderly female in no acute distress. She is alert and oriented 3. There is no cyanosis or diaphoresis. Breath sounds are clear and equal bilaterally. Heart regular rate and rhythm with frequent ectopy which appears to be PACs on the monitor. Abdomen is soft and nontender with normal bowel sounds. Labs reviewed. Hemoglobin 7.7. The hospitalist, Dr. Felipe, was consulted and accepted admission of the patient.
[2018-06-02 19:44] LABS: Potassium 3.7 mEq/L (3.5-5.1)
[2018-06-02] MEDS ORDERED: Nitroglycerin 0.4 MG TAB.SUBL SL PRN (21:34)
[2018-06-02] MEDS ORDERED: Acetaminophen 325 MG TABLET PO PRN (21:34)
[2018-06-02] MEDS ORDERED: Dextrose Gel 15 GM/37.5 ML TUBE PO PRN ×2 (21:37)
[2018-06-02] MEDS ORDERED: 0.9 % Sodium Chloride 1,000 ML IVC SCH (21:45)
--- NOTE | 2018-06-02 22:46 | Internal Med History&Physical ---
Date of Encounter: 06/02/18 Time of Encounter: 22:43 Internal Medicine - H&P: HPI Chief complaint: dark stool Admitted From: Home Plans for Post Hospital Care: Home History of present illness: Emily Frankel is an 82-year-old woman with a history of coronary artery disease status post stent placement in 2001, diabetes and hypertension who was admitted here only recently due to symptomatic anemia secondary to GI bleed after being started on apixaban for atrial fibrillation. She underwent endoscopy and colonos copy with findings of diffuse erythematous gastritis as well as diverticulosis and mucosal ulceration in her colon. She received 2U pRBC and discharged with a Hgb of 8.2 9 days ago, omeprazole and apixaban discontinued. She presents now complaining of ongoing dark stool, worsening fatigue and asthenia. She says that her Hgb was 9.2 6 days ago when done by her PCP. On arrival today her Hgb is 7.7 and FOBT positive. She denies any abdominal pain though. No nausea or vomiting. Past medical history as stated above. Past surgical history remarkable for hysterectomy. Denies smoking and illicit drug use on social history; has good family support system. Family history obtained and found noncontributory. 10 point systems were reviewed and are negative except as listed above. Past Med Surg Social Fam HX - Past Medical History Medical history: arthritis, CHF, diabetes, GI bleed, hyperlipidemia, myocardial infarction Psychiatric history: anxiety - Past Surgical History Surgical History: angioplasty/stent, appendectomy, hysterectomy Additional surgical history: stent x1 - Social History Smoking Status: Never smoker Smokeless Tobacco Status: No Alcohol use: none Drug use: none - Family History Mother Name: Rachel Cooper Living Status: Hx Family Cancer: Yes (Unknown type) Father Name: Jose Narayan Living Status: Hx Family Cancer: Yes (Unknown type) Internal Medicine - H&P: Meds ALPRAZolam [Xanax 0.5 MG Tablet] 0.5 mg PO TID PRN 02/14/18 [History] Ascorbic Acid [Vitamin C] 500 mg PO DAILY 02/14/18 [History] Aspirin Enteric Coated [Aspirin EC] 81 mg PO DAILY 02/14/18 [History] Atorvastatin [Lipitor] 40 mg PO HS 02/14/18 [History] Cholecalciferol (D-3) [Vitamin D] 5,000 unit PO DAILY 02/14/18 [History] Fish Oil/Dha/Epa [Fish Oil 1,200 mg Fish Oil] 1 cap PO BID 02/14/18 [History] Furosemide [Lasix] 20 mg PO DAILY 02/14/18 [History] Insulin Glargine,Hum.rec.anlog [Lantus Solostar] 5 units SQ BID 02/14/18 [History] Metoprolol [Lopressor] 25 mg PO DAILY 02/14/18 [History] Vitamin B Complex Vit C No.4 [Super B Complex] 1 tab PO DAILY 02/14/18 [History] Acetaminophen [Tylenol] 650 mg PO Q6HR PRN tablet 03/19/18 [Rx] Nitroglycerin 0.4 mg SL Q5MIN PRN tab.subl 03/19/18 [Rx] Polyethylene Glycol 3350 [MiraLAX] 17 gm PO DAILY PRN powd.pack 03/19/18 [Rx] glipiZIDE [Glucotrol] 10 mg PO BID tablet 03/19/18 [Rx] Insulin LISPRO [HumaLOG] 0 units SQ TIDAC PRN 05/20/18 [History] Sitagliptin Phosphate [Januvia] 50 mg PO DAILY 05/20/18 [History] Ferrous Sulfate 325 mg PO DAILY@0800 30 Days #30 tablet 05/24/18 [Rx] Omeprazole [PriLOSEC] 20 mg PO BIDAC 30 Days #60 cap 05/24/18 [Rx] Allergy/AdvReac Type Severity Reaction Status Date / Time Penicillins Allergy Anaphylaxis Verified 06/02/18 18:56 All Systems PM: A 10-system review of systems was performed and is negative for pertinent fi ndings except as documented above in the HPI. - Constitutional Vitals: Temp Pulse Resp BP Pulse Ox 97.6 F 72 15 122/70 93 06/02/18 22:31 06/02/18 22:31 06/02/18 22:31 06/02/18 22:31 06/02/18 22:31 Exam: Vitals: Reviewed General: Obese white female lying comfortably in bed in no acute distress Skin: Pale but warm and supple. HEENT: Moist mucous membranes. No conjunctivae pallor. Neck: No lymphadenopathy. No JVD. No carotid bruits. No palpable thyroid. Chest: Normal thoracic expansion. Normal breath sounds. Clear to auscultation. Heart: Normal S1 & S2; rhythmic. No rubs or murmurs. Abdomen: Non-distended, soft and non-tender to palpation. No peritoneal reaction. Extremities: No clubbing, cyanosis or edema. No calf tenderness. Normal distal pulses. Neurological: Awake, alert and oriented to person, place and time. No focal deficits. Psych: Affect appropriate. Internal Med - H&P Results - Labs CBC & Chem 7: 06/02/18 19:16 06/02/18 19:16 Labs: Short CBC 06/02/18 Range/Units 19:16 WBC 7.4 (4.3-11.1) K/mcL Hgb 7.7 L (11.5-15.4) g/dL Hct 24.6 L (35.3-44.9) % Plt Count 353 (140-400) K/mcL Neutrophils # 5.2 (1.6-8.9) K/mcL BMP 06/02/18 19:16 Sodium 134 L Potassium 3.7 Chloride 99 Carbon Dioxide 25 BUN 19 Creatinine 1.14 Glucose 400 H Calcium 9.0 - Assessment and plan (1) Anemia Current Visit: Yes Status: Chronic Assessment and plan: Secondary to ongoing blood loss from GI beed. Secondary to anemia. Will provide fluid resuscitation and transfuse 1U pRBC with goal Hgb >8g/dl due to her CAD history and symptomatic state. Qualifiers: Anemia type: iron deficiency Iron deficiency anemia type: chronic blood loss Qualified Code(s): D50.0 - Iron deficiency anemia secondary to blood loss (chronic) (2) GI bleed Current Visit: Yes Status: Acute Assessment and plan: Concern for ongoing hemorrhagic gastritis being active with continue aspirin use. Will keep NPO. Start IV PPI BID. GI consultation. Qualifiers: GI bleed type/associated pathology: unspecified gastrointestinal hemorrhage type Qualified Code(s): K92.2 - Gastrointestinal hemorrhage, unspecified (3) Weakness Current Visit: Yes Status: Acute Assessment and plan: Secondary to anemia. Will provide fluid resuscitation and transfuse 1U pRBC with goal Hgb >8g/dl. (4) A-fib Current Visit: Yes Status: Chronic Assessment and plan: The patient is currently in sinus rhythm. Was a recent diagnosis. Monitor on telemetry. Qualifiers: Atrial fibrillation type: paroxysmal Qualified Code(s): I48.0 - Paroxysmal atrial fibrillation (5) CAD (coronary artery disease) Current Visit: Yes Status: Chronic Assessment and plan: Stable. Can continue statin therapy for now. Qualifiers: Coronary Disease-Associated Artery/Lesion type: [place] artery [place] vs. transplanted heart: [place] heart Associated angina: without angina Qualified Code(s): I25.10 - Atherosclerotic heart disease of [place] coronary artery without angina pectoris (6) Chronic CHF (congestive heart failure) Current Visit: Yes Status: Chronic Assessment and plan: Last echo showed improved EF to 60%. No signs of decompensation. Qualifiers: Heart failure type: unspecified Qualified Code(s): I50.9 - Heart failure, unspecified (7) Diabetes Current Visit: Yes Status: Chronic Assessment and plan: q6hrs accuchecks. Continue basal insulin. Qualifiers: Diabetes mellitus type: type 2 Diabetes mellitus penitentiary insulin use: with assistant terminal manager use Diabetes mellitus complication status: with unspecified complications Qualified Code(s): E11.8 - Type 2 diabetes mellitus with unspecified complications; Z79.4 - rodent exterminator (current) use of insulin (8) HTN (hypertension) Current Visit: Yes Status: Chronic Assessment and plan: Well controlled for age. Resume home medications once suitable. Qualifiers: Hypertension type: essential hypertension Qualified Code(s): I10 - Essential (primary) hypertension (9) DVT prophylaxis Current Visit: Yes Status: Acute Assessment and plan: IPC for now. - Time Spent With Patient Total time spent is greater than 50% in coordination of care (as documented) at patient's floor/unit and/or counseling patient: Greater than 35 minutes
[2018-06-02] MEDS: Insulin DETEMIR 100 UNIT/ML X5UNITS SQ SCH (23:12)
[2018-06-02] MEDS: ALPRAZolam 0.5 MG TABLET PO PRN (23:12)
[2018-06-02] MEDS: Pantoprazole 40 MG VIAL IVP SCH (23:20)
[2018-06-03] MEDS: Insulin LISPRO 300 UNITS/3 ML VIAL SQ SCH ×5 (00:11→22:08)
--- NOTE | 2018-06-03 06:42 | Event Note ---
Date of Encounter: 06/03/18 Time of Encounter: 06:35 It was just made aware to me that the patient has not received the ordered blood transfusion as antibodies have been detected and therefore blood needs to be obtained from the [facility] this morning. Daytime nurse has been made aware of the situation and will follow up accordingly. The patient remains clinically and hemodynamically stable.
[2018-06-03] MEDS: Pantoprazole 40 MG VIAL IVP SCH ×2 (06:51→17:41)
[2018-06-03 07:28] LABS: Basophils # 0.1 K/mcL (0.0-0.2); Basophils % 0.6 %; Eosinophils # 0.3 K/mcL (0.0-0.6); Eosinophils % 4.2 %; Hematocrit 23.2 % (35.3-44.9); Hemoglobin 7.2 g/dL (11.5-15.4); Immature Granulocytes % 0.5 % (0-4); Lymphocytes # 3.3 K/mcL (0.6-4.6); Lymphocytes % 40.7 %; Mean Corpuscular Hemoglobin 29.6 pg (28.0-33.3); Mean Corpuscular Volume 95.5 fL (83.0-100.0); Mean Platelet Volume 9.5 fL (9.4-12.4); Monocytes # 0.7 K/mcL (0.0-1.3); Monocytes % 8.1 %; Neutrophils # 3.8 K/mcL (1.6-8.9); Platelet Count 356 K/mcL (140-400); Red Blood Count 2.43 M/mcL (3.82-4.97); Red Cell Distribution Width 16.3 % (11.5-14.5); Segmented Neutrophils % 45.9 %
[2018-06-03] MEDS: Cholecalciferol (D-3) 1,000 UNIT TABLET PO SCH (07:32)
[2018-06-03] MEDS: Insulin DETEMIR 100 UNIT/ML X5UNITS SQ SCH ×2 (07:32→22:08)
[2018-06-03] MEDS: Furosemide 20 MG TABLET PO SCH (07:32)
[2018-06-03 07:45] LABS: BUN/Creatinine Ratio 17 (6-26); Blood Urea Nitrogen 15 mg/dL (8-23); Calcium 8.8 mg/dL (8.6-10.3); Carbon Dioxide 27 mEq/L (23-29); Chloride 105 mEq/L (98-107); Glucose 110 mg/dL (70-105); Osmolality,Calculated 291 (280-300); Potassium 3.8 mEq/L (3.5-5.1); Sodium 140 mEq/L (136-145); eGFR For Non-African Americans > 60 (> 60)
--- NOTE | 2018-06-03 09:58 | Internal Med Progress Note ---
<Elvis Dunn S - Last Filed: 06/03/18 11:55> Hospitalist Progress Note - Encounter Date of Encounter: 06/03/18 Time of Encounter: 09:55 - Subjective Interval History: Pt is seen at bedside. She is a 82yo female with PMH of CAD s/p stent x1, DM, HTN, and was recently started on Eliquis for A fib. She was admitted recentlu for symptomatic anemia secondary to GIB after being started on Eliquis for a fib. She had a colonoscopy and EGD, which showed diffuse gastritis and diverticulosis in the colon. She said they found 5 ulcers. She was given blood and discharged 10 days ago and started on a PPI. Her abixaban was discontinued. She represented yesterday with the cheif complaint of fatigue. She states that she had increasing dark stool, coffee ground in consistency. She reported fatigue and being tired. On arrival she had a hemoglobin of 7.7, FOBT(+). The pt denies any abdpminal pain, N/V. She denies any chest pain, SOB, fever/chills, cough, increased sputum production. - Exam Vitals: Temp Pulse Resp BP Pulse Ox 98.1 F 73 16 113/62 94 06/03/18 08:14 06/03/18 08:14 06/03/18 08:14 06/03/18 08:14 06/03/18 08:53 Exam: General: AOx3, no acute distress, laying in bed Skin: Pale but warm and supple. HEENT: Moist mucous membranes. No conjunctivae pallor. Neck: No lymphadenopathy. No JVD. No carotid bruits. No palpable thyroid. Chest: Normal thoracic expansion. Normal breath sounds. Clear to auscultation. Heart:: CTA, no MRG, RRR Abdomen: Non-distended, soft and non-tender to palpation. No rebound or guarding. Obese. Extremities: No clubbing, cyanosis or edema. No calf tenderness. Normal distal pulses. Normal inspection. Neurological: AOx3 No focal deficits. Psych: Affect and mood appropriate - Assessment and Plan (1) Chronic CHF (congestive heart failure) Current Visit: No Status: Chronic Assessment and Plan: NOT in acute exacerbation - last ECHO 02/2018 showed LVEF 60% . (2) CAD (coronary artery disease) Current Visit: Yes Status: Chronic Assessment and Plan: Known CAD with s/p 1 stent - continue statin therapy (3) HTN (hypertension) Current Visit: Yes Status: Chronic Assessment and Plan: BP 113/62 - stable and well controlled (4) DVT prophylaxis Current Visit: Yes Status: Acute Assessment and Plan: SCD's (5) Anemia Current Visit: Yes Status: Chronic Assessment and Plan: Most likely secondary to GIB - continue fluids - transfer 1U pending , goal Hg >8 - GI consulted - see plan as above. . (6) Weakness Current Visit: Yes Status: Acute Assessment and Plan: Secondary to anemia, see plan as above (7) A-fib Current Visit: Yes Status: Chronic Assessment and Plan: CHADVASc of 6 , HASBLED of 3 - pt had Eliquis d/c secondary to GIB - pt is currently in NSR - continue telemetry monitoring (8) Diabetes Current Visit: Yes Status: Chronic Assessment and Plan: Insulin sliding scale - glucose 110 this morning (9) GI bleed Current Visit: Yes Status: Acute Assessment and Plan: Pt recently admitted for GIB secondary to Eliquis use - pt was started on anticoagulation for newly diagnosed a fib CHADVASc of 6, HASBLED of 3 - currently, the pt has anticoagulation held On last admission, pt had EGD and colonoscopy which showed extensive ulceration and diverticulosis At admission, pt had a hemoglobin of 7.7. Repeat this morning was 7.2 - FOBT (+) Plan: - transfuse 1U pRBC for a goal hemoglobin >8 pt had positive antibodies in blood sample, awaiting RBC from the [facility] - aspirin held - GI consulted NPO currently in case of need for intervention - IV protonix 40mg q12hr - H&H pending for noon - Time Spent with Patient Total time spent is greater than 50% in coordination of care (as documented) at patient's floor/unit and/or counseling patient: less than 15 minutes Plan of Care Discussed with: patient Internal Medicine: Result - Labs CBC & Chem 7: 06/03/18 11:35 06/03/18 06:45 Labs: Short CBC 06/02/18 06/03/18 Range/Units 19:16 06:45 WBC 7.4 8.2 (4.3-11.1) K/mcL Hgb 7.7 L 7.2 L (11.5-15.4) g/dL Hct 24.6 L 23.2 L (35.3-44.9) % Plt Count 353 356 (140-400) K/mcL Neutrophils # 5.2 3.8 (1.6-8.9) K/mcL BMP 06/02/18 06/03/18 19:16 06:45 Sodium 134 L 140 Potassium 3.7 3.8 Chloride 99 105 Carbon Dioxide 25 27 BUN 19 15 Creatinine 1.14 0.88 Glucose 400 H 110 H Calcium 9.0 8.8 - ABG Interpretation ABG results: PT/INR, D-dimer PT 11.8 Seconds (9.4-12.1) 06/02/18 19:16 Consult Discharge Plan - Plan Referrals: Radha Purcell, PhD [Primary Care Provider] - <Javon Cabezas - Last Filed: 06/03/18 16:33> Hospitalist Progress Note - Encounter Date of Encounter: 06/03/18 - Exam Vitals: Temp Pulse Resp BP Pulse Ox 97.4 F L 78 16 107/47 95 06/03/18 14:39 06/03/18 14:39 06/03/18 14:39 06/03/18 14:39 06/03/18 14:39 - Assessment and Plan (1) Chronic CHF (congestive heart failure) Current Visit: No Status: Chronic (2) CAD (coronary artery disease) Current Visit: Yes Status: Chronic (3) HTN (hypertension) Current Visit: Yes Status: Chronic (4) DVT prophylaxis Current Visit: Yes Status: Acute (5) Anemia Current Visit: Yes Status: Chronic (6) Weakness Current Visit: Yes Status: Acute (7) A-fib Current Visit: Yes Status: Chronic (8) Diabetes Current Visit: Yes Status: Chronic (9) GI bleed Current Visit: Yes Status: Acute - Time Spent with Patient Total time spent is greater than 50% in coordination of care (as documented) at patient's floor/unit and/or counseling patient: Internal Medicine: Result - Labs CBC & Chem 7: 06/03/18 13:39 06/03/18 06:45 Labs: Short CBC 06/02/18 06/03/18 06/03/18 Range/Units 19:16 06:45 11:35 WBC 7.4 8.2 (4.3-11.1) K/mcL Hgb 7.7 L 7.2 L 6.9 L (11.5-15.4) g/dL Hct 24.6 L 23.2 L 22.2 L (35.3-44.9) % Plt Count 353 356 (140-400) K/mcL Neutrophils # 5.2 3.8 (1.6-8.9) K/mcL 06/03/18 Range/Units 13:39 WBC (4.3-11.1) K/mcL Hgb 6.5 L (11.5-15.4) g/dL Hct 21.0 L (35.3-44.9) % Plt Count (140-400) K/mcL Neutrophils # (1.6-8.9) K/mcL BMP 06/02/18 06/03/18 19:16 06:45 Sodium 134 L 140 Potassium 3.7 3.8 Chloride 99 105 Carbon Dioxide 25 27 BUN 19 15 Creatinine 1.14 0.88 Glucose 400 H 110 H Calcium 9.0 8.8 - ABG Interpretation ABG results: PT/INR, D-dimer PT 11.8 Seconds (9.4-12.1) 06/02/18 19:16 - Attending Attestation I have seen and independently assessed this patient and agree with plan per resident Plan Symptomatic acute blood loss anemia secondary to acute uuper GI bleed. NPO continue pronix. Transfuse 2 units PRBc. GI plan for endoscopy this pm <Elvis Dunn - Last Filed: 06/03/18 11:55> (1) Chronic CHF (congestive heart failure) Qualifiers: Heart failure type: unspecified Qualified Code(s): I50.9 - Heart failure, unspecified (2) CAD (coronary artery disease) Qualifiers: Coronary Disease-Associated Artery/Lesion type: [place]bud artery [place] vs. tra nsplanted heart: rosebud heart Associated angina: without angina Qualified Code(s): I25.10 - Atherosclerotic heart disease of rosebud coronary artery without angina pectoris (3) HTN (hypertension) Qualifiers: Hypertension type: essential hypertension Qualified Code(s): I10 - Essential (primary) hypertension (5) Anemia Qualifiers: Anemia type: iron deficiency Iron deficiency anemia type: chronic blood loss Qualified Code(s): D50.0 - Iron deficiency anemia secondary to blood loss (chronic) (7) A-fib Qualifiers: Atrial fibrillation type: paroxysmal Qualified Code(s): I48.0 - Paroxysmal atrial fibrillation (8) Diabetes Qualifiers: Diabetes mellitus type: type 2 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: with longterm use Diabetes mellitus complication status: with unspecified complications Qualified Code(s): E11.8 - Type 2 diabetes mellitus with unspecified complications; Z79.4 - remote computer terminal operator (current) use of insulin (9) GI bleed Qualifiers: GI bleed type/associated pathology: unspecified gastrointestinal hemorrhage type Qualified Code(s): K92.2 - Gastrointestinal hemorrhage, unspecified <Javon Cabezas - Last Filed: 06/03/18 16:33> (1) Chronic CHF (congestive heart failure) Qualifiers: Heart failure type: unspecified Qualified Code(s): I50.9 - Heart failure, unspecified (2) CAD (coronary artery disease) Qualifiers: Coronary Disease-Associated Artery/Lesion type: [place] artery [place] vs. transplanted heart: rosebud heart Associated angina: without angina Qualified Code(s): I25.10 - Atherosclerotic heart disease of [place] coronary artery without angina pectoris (3) HTN (hypertension) Qualifiers: Hypertension type: essential hypertension Qualified Code(s): I10 - Essential (primary) hypertension (5) Anemia Qualifiers: Anemia type: iron deficiency Iron deficiency anemia type: chronic blood loss Qualified Code(s): D50.0 - Iron deficiency anemia secondary to blood loss (chronic) (7) A-fib Qualifiers: Atrial fibrillation type: paroxysmal Qualified Code(s): I48.0 - Paroxysmal at rial fibrillation (8) Diabetes Qualifiers: Diabetes mellitus type: type 2 Diabetes mellitus longterm insulin use: with terminal gauger supervisor use Diabetes mellitus complication status: with unspecified complications Qualified Code(s): E11.8 - Type 2 diabetes mellitus with unspecified complications; Z79.4 - [facility] (current) use of insulin (9) GI bleed Qualifiers: GI bleed type/associated pathology: unspecified gastrointestinal hemorrhage type Qualified Code(s): K92.2 - Gastrointestinal hemorrhage, unspecified
--- NOTE | 2018-06-03 10:14 | Gastroenterology Consult Note ---
<Martín Garcia - Last Filed: 06/03/18 11:37> Date of Encounter: 06/03/18 Time of Encounter: 10:14 - Assessment and plan (1) Melena Current Visit: Yes Status: Acute Assessment and plan: Patient complains of "coffee-ground" stools since her colonoscopy on May 22. She also reports several episodes of loose stools. Denies bright red blood. Given the inflammation seen on previous colonoscopy this may be related to slow bleeding from these areas. On upper endoscopy patient was also noted to have multiple erosions and inflammation. Agree with blood transfusions. We will check anti-Saccharomyces antibodies, Anca, CRP to rule out inflammatory bowel disease. Plan for EGD this afternoon to rule out any obvious causes of upper GI bleed. Continue monitor patient's blood counts, if stable then we will likely plan for repeat colonoscopy in several months. If her hemoglobin is noted to drop while as an inpatient and will consider colonoscopy sooner. (2) Anemia Current Visit: Yes Status: Chronic Assessment and plan: Possibly due to chronic blood loss with melena as stated above. Agree with blood transfusions, continue monitor CBC. Check iron panel in the morning. Qualifiers: Anemia type: iron deficiency Iron deficiency anemia type: chronic blood loss Qualified Code(s): D50.0 - Iron deficiency anemia secondary to blood loss (chronic) - Time Spent With Patient Total time spent is greater than 50% in coordination of care (as documented) at patient's floor/unit and/or counseling patient: GI History of Present Illness - Data of Consult Patient: known to practice within the last 3 years Consult date: 06/03/18 Requesting Physician: Dahlia Felipe MD - Consult Narrative Reason for consult: Melena History of present illness: Ms. Frankel is a 82 year old female with history of atrial fibrillation, type 2 diabetes, anemia presents with melena and weakness. Patient states that she had a colonoscopy done approximately 2 weeks ago and ever since then she has had black stools. She reports at times she is has episodes of loose stools. She states what brought her to the hospital was progressive and profound weakness. She normally gets up and walks around with a walker but has gotten to the point that she has not been able to get out of bed. She denies any fever, chills, chest pain, shortness of breath, abdominal pain, nausea, vomiting. She denies hematemesis or hematochezia. Colonoscopy: 05/22/18 EGD: 05/21/18 Past Med Surg Social Fam HX - Past Medical History Medical history: arthritis, CHF, diabetes, GI bleed, hyperlipidemia, myocardial infarction Psychiatric history: anxiety - Past Surgical History Surgical History: angioplasty/stent, appendectomy, hysterectomy Additional surgical history: stent x1 - Social History Smoking Status: Never smoker Smokeless Tobacco Status: No Alcohol use: none Drug use: none - Family History Mother Name: Rachel Cooper Living Status: Hx Family Cancer: Yes (Unknown type) Father Name: Jose Narayan Living Status: Hx Family Cancer: Yes (Unknown type) All systems PM: reviewed and no additional remarkable complaints except as stated - Constitutional Vitals: Temp Pulse Resp BP Pulse Ox 98.1 F 73 16 113/62 94 06/03/18 08:14 06/03/18 08:14 06/03/18 08:14 06/03/18 08:14 06/03/18 08:53 General appearance: Present: A&O X 3, pleasant, no acute distress - Head Head exam: Present: atraumatic, normal inspection, normocephalic - Eye Eye exam: Present: EOMI - ENT ENT exam: Present: mucous membranes moist Additional comments: no ulcerations - Respiratory Respiratory exam: Present: CTAB. Absent: rales, rhonchi, wheezes - Cardiovascular Cardiovascular exam: Present: RRR. Absent: gallop, rubs, systolic murmur - GI/Abdominal GI/Abdominal exam: Present: normal bowel sounds, soft. Absent: distended, tenderness - Extremities Exam Extremities exam: Present: warm. Absent: pedal edema, tenderness - Skin Skin exam: Present: dry, intact, warm Results - Labs CBC & Chem 7: 06/03/18 06:45 06/03/18 06:45 Labs: Last Result Calcium 8.8 mg/dL (8.6-10.3) 06/03/18 06:45 Entire Visit Hgb 7.2 g/dL (11.5-15.4) L 06/03/18 06:45 Hct 23.2 % (35.3-44.9) L 06/03/18 06:45 PT 11.8 Seconds (9.4-12.1) 06/02/18 19:16 - ABG ABG results: PT/INR, D-dimer PT 11.8 Seconds (9.4-12.1) 06/02/18 19:16 Consult Discharge Plan - Plan Referrals: Radha Purcell, PhD [Primary Care Provider] - <Dima Alvarez - Last Filed: 06/03/18 18:32> Date of Encounter: 06/03/18 Time of Encounter: 14:00 - Time Spent With Patient Total time spent is greater than 50% in coordination of care (as documented) at patient's floor/unit and/or counseling patient: GI History of Present Illness - Data of Consult Requesting Physician: Dahlia Felipe MD - Consult Narrative History of present illness: Ms. Frankel is a 82 year old female - Constitutional Vitals: Temp Pulse Resp BP Pulse Ox 98.2 F 77 16 126/52 96 06/03/18 17:00 06/03/18 17:00 06/03/18 17:00 06/03/18 17:00 06/03/18 17:00 Results - Labs CBC & Chem 7: 06/03/18 13:39 06/03/18 06:45 Labs: Last Result Calcium 8.8 mg/dL (8.6-10.3) 06/03/18 06:45 C-Reactive Protein < 5 mg/L (Less than 10) 06/03/18 09:49 Entire Visit Hgb 6.5 g/dL (11.5-15.4) L 06/03/18 13:39 Hct 21.0 % (35.3-44.9) L 06/03/18 13:39 PT 11.8 Seconds (9.4-12.1) 06/02/18 19:16 - ABG ABG results: PT/INR, D-dimer PT 11.8 Seconds (9.4-12.1) 06/02/18 19:16 - Attending Attestation I examined this patient and my medical decision-making was reviewed with the Resident Physician. I agree with the documented findings, disposition and treatment plan as described except to the extent set forth below. 82-year-old female with the black stool had recent colonoscopy done that showed ulcer in the right side of the colon concerning for right side Crohn disease vs infectious etiology. On examination abdomen is benign but on rectal examination does has black stool. Assessment: Patient with melena with anemia. Recent EGD was unremarkable. Recommendation: Enteroscopy to rule out small bowel causes fo r her melena such as AVM. Also workup for Crohn disease
[2018-06-03 11:47] LABS: Hematocrit 22.2 % (35.3-44.9); Hemoglobin 6.9 g/dL (11.5-15.4)
[2018-06-03 14:23] LABS: Hemoglobin 6.5 g/dL (11.5-15.4)
--- NOTE | 2018-06-03 14:40 | Anesthesia Evaluation PreOp ---
Date of Encounter: 06/03/18 Time of Encounter: 14:39 - Past History Planned Operation: EGD Cardiac History: HTN, Hyperlipidemia, Arrhythmia (AFIB, NOT ON ANTICOAGULATION SINCE LAST ADMISSION ON 05/20), Cardiac Stent (2001) Pulmonary History: Denies Any Significant HX [employer] History: Denies Any Significant HX Other Medical History: Bleeding (JOSSELIN, UPPER GI BLEEDING, ANEMIA), Diabetes Type II Anesthesia History: No Prior Anesthetic Complications, Past Anesthesia Alcohol Use: none Drug use: none Medications and Allergies ALPRAZolam [Xanax 0.5 MG Tablet] 0.5 mg PO TID PRN 02/14/18 [History] Ascorbic Acid [Vitamin C] 500 mg PO DAILY 02/14/18 [History] Aspirin Enteric Coated [Aspirin EC] 81 mg PO DAILY 02/14/18 [History] Atorvastatin [Lipitor] 40 mg PO HS 02/14/18 [History] Cholecalciferol (D-3) [Vitamin D] 5,000 unit PO DAILY 02/14/18 [History] Fish Oil/Dha/Epa [Fish Oil 1,200 mg Fish Oil] 1 cap PO BID 02/14/18 [History] Furosemide [Lasix] 20 mg PO DAILY 02/14/18 [History] Insulin Glargine,Hum.rec.anlog [Lantus Solostar] 5 units SQ BID 02/14/18 [History] Metoprolol [Lopressor] 25 mg PO DAILY 02/14/18 [History] Vitamin B Complex Vit C No.4 [Super B Complex] 1 tab PO DAILY 02/14/18 [History] Acetaminophen [Tylenol] 650 mg PO Q6HR PRN tablet 03/19/18 [Rx] Nitroglycerin 0.4 mg SL Q5MIN PRN tab.subl 03/19/18 [Rx] Polyethylene Glycol 3350 [MiraLAX] 17 gm PO DAILY PRN powd.pack 03/19/18 [Rx] glipiZIDE [Glucotrol] 10 mg PO BID tablet 03/19/18 [Rx] Insulin LISPRO [HumaLOG] 0 units SQ TIDAC PRN 05/20/18 [History] Sitagliptin Phosphate [Januvia] 50 mg PO DAILY 05/20/18 [History] Ferrous Sulfate 325 mg PO DAILY@0800 30 Days #30 tablet 05/24/18 [Rx] Omeprazole [PriLOSEC] 20 mg PO BIDAC 30 Days #60 cap 05/24/18 [Rx] Allergy/AdvReac Type Severity Reaction Status Date / Time Penicillins Allergy Anaphylaxis Verified 06/02/18 18:56 - Meds/Allergy Pre-op Review Medications Reviewed: Yes Allergies Reviewed: Yes Anesthesia Results - Labs 06/03/18 13:39 06/03/18 06:45 Laboratory Tests 06/02/18 19:16 Blood Type AB POSITIVE Antibody Screen POSITIVE Antibody Identification Anti-Jka Anesthesia Exam Vital Signs/O2 Sat/Glucose, Most Recent Temp Pulse Resp BP Pulse Ox 97.4 F L 78 16 107/47 95 06/03/18 14:39 06/03/18 14:39 06/03/18 14:39 06/03/18 14:39 06/03/18 14:39 Blood Glucose* 193 Weight: 71 kg, BMI 30 NPO (# of Hours): 8 - HEENT Mallampati: II Teeth: Edentulous Oral Opening: Greater than 3 - Cardiac Rhythm: Irregular - Pulmonary Breath Sounds: bilateral Clear Respiratory Effort: Symmetrical - Additional Findings Active Medications Acetaminophen (Tylenol) 650 mg PO Q6HR PRN PRN Reason: Fever Stop: 12/02/18 21:35 Alprazolam (Xanax) 0.5 mg PO TID PRN; Protocol PRN Reason: Anxiety Stop: 12/02/18 21:35 Last Admin: 06/02/18 23:12 Dose: 0.5 mg Atorvastatin Calcium (Lipitor) 40 mg PO HS [facility] Stop: 12/03/18 21:01 Ferrous Sulfate (Ferrous Sulfate) 325 mg PO DAILY@0800 [facility] Stop: 12/03/18 08:01 Last Admin: 06/03/18 07:32 Dose: 325 mg Furosemide (Lasix) 20 mg PO DAILY [facility] Stop: 12/03/18 09:01 Last Admin: 06/03/18 07:32 Dose: 20 mg Glucose (Gluctose) 15 gm PO ONCE PRN PRN Reason: Hypoglycemia Stop: 12/02/18 21:38 Glucose (Gluctose) 30 gm PO ONCE PRN PRN Reason: Hypoglycemia Stop: 12/02/18 21:38 Insulin Detemir (Levemir) 5 unit SQ BID [facility] Stop: 12/02/18 21:46 Last Admin: 06/03/18 07:32 Dose: Not Given Insulin Human Lispro (Humalog) 0 units SQ Q6HR [facility]; Protocol Stop: 12/03/18 00:01 Last Admin: 06/03/18 11:55 Dose: 6 units Metoprolol Tartrate (Lopressor) 25 mg PO DAILY [facility] Stop: 12/03/18 09:01 Last Admin: 06/03/18 07:32 Dose: 25 mg Nitroglycerin (Nitroglycerin) 0.4 mg SL Q5MIN PRN PRN Reason: Chest Pain Stop: 12/02/18 21:35 Pantoprazole Sodium (Protonix) 40 mg IVP Q12HR [facility] Stop: 12/02/18 21:44 Last Admin: 06/03/18 06:51 Dose: 40 mg Polyethylene Glycol (Miralax) 17 gm PO DAILY PRN PRN Reason: Constipation Stop: 12/02/18 21:35 Vitamin D (Vitamin D) 1,000 unit PO DAILY [facility] Stop: 12/03/18 09:01 Last Admin: 06/03/18 07:32 Dose: 1,000 unit Anesthesia Assess/Plan ASA Score: 4 Anesthetic Plan: MAC Monitoring Plan: Standard Monitors Recovery Plan: Other (PHASE 2 TO FLOOR) Anes Supervising Prov Stmt: PATIENT HAS A POSITIVE ANTIBODY SCREEN. NO CROSS MATCHED PRBC AVAILABLE YET. Patient informed and consented. Risks, benefits, and alternatives discussed. Patient wishes to proceed.
[2018-06-03] MEDS ORDERED: Lidocaine -MPF 2% 2 ML VIAL ONE (14:41)
[2018-06-03] MEDS ORDERED: *HR* Propofol 200 MG/20 ML VIAL IVP ONE ×2 (14:42→15:34)
[2018-06-03 19:52] LABS: Hemoglobin 6.8 g/dL (11.5-15.4)
[2018-06-03] MEDS ORDERED: 0.9 % Sodium Chloride 250 ML ONE ×2 (19:59→23:41)
[2018-06-03] MEDS: ALPRAZolam 0.5 MG TABLET PO PRN (22:12)
[2018-06-04 06:03] LABS: Basophils % 0.6 %; Eosinophils # 0.2 K/mcL (0.0-0.6); Eosinophils % 3.5 %; Hematocrit 28.9 % (35.3-44.9); Immature Granulocytes % 0.6 % (0-4); Lymphocytes # 1.9 K/mcL (0.6-4.6); Lymphocytes % 26.8 %; Mean Corpuscular HGB Conc 33.2 g/dL (31.6-35.5); Mean Corpuscular Hemoglobin 29.8 pg (28.0-33.3); Mean Corpuscular Volume 89.8 fL (83.0-100.0); Mean Platelet Volume 9.2 fL (9.4-12.4); Monocytes # 0.7 K/mcL (0.0-1.3); Monocytes % 9.4 %; Neutrophils # 4.1 K/mcL (1.6-8.9); Nucleated Red Blood Cells 0.3 /100 WBC (0); Platelet Count 315 K/mcL (140-400); Red Blood Count 3.22 M/mcL (3.82-4.97); Red Cell Distribution Width 16.2 % (11.5-14.5); Segmented Neutrophils % 59.1 %
[2018-06-04] MEDS: Pantoprazole 40 MG VIAL IVP SCH (06:07)
[2018-06-04 06:18] LABS: Hemoglobin 9.6 g/dL (11.5-15.4)
[2018-06-04 06:23] LABS: BUN/Creatinine Ratio 15 (6-26); Blood Urea Nitrogen 13 mg/dL (8-23); Calcium 9.1 mg/dL (8.6-10.3); Carbon Dioxide 28 mEq/L (23-29); Chloride 105 mEq/L (98-107); Glucose 185 mg/dL (70-105); Osmolality,Calculated 293 (280-300); Potassium 4.1 mEq/L (3.5-5.1); Sodium 139 mEq/L (136-145); eGFR For Non-African Americans > 60 (> 60)
[2018-06-04 06:29] LABS: % Iron Saturation 53 % (15-50); Iron 137 mcg/dL (50-170); Transferrin 183 mg/dL (203-362)
[2018-06-04 06:41] LABS: Ferritin 28 ng/mL (10-120)
[2018-06-04] MEDS: Insulin LISPRO 300 UNITS/3 ML VIAL SQ SCH ×4 (08:10→20:26)
[2018-06-04] MEDS: Furosemide 20 MG TABLET PO SCH (08:12)
[2018-06-04] MEDS: Insulin DETEMIR 100 UNIT/ML X5UNITS SQ SCH ×2 (08:12→20:26)
[2018-06-04] MEDS: Cholecalciferol (D-3) 1,000 UNIT TABLET PO SCH (08:14)
--- NOTE | 2018-06-04 08:36 | Internal Med Progress Note ---
<Elvis Dunn S - Last Filed: 06/04/18 11:15> Hospitalist Progress Note - Encounter Date of Encounter: 06/04/18 Time of Encounter: 08:32 - Subjective Interval History: Pt is seen at bedside. She is a 82yo female with PMH of CAD s/p stent x1, DM, HTN, and was recently started on Eliquis for A fib. She was admitted recentlu for symptomatic anemia secondary to GIB after being started on Eliquis for a fib. She had a colonoscopy and EGD, which showed diffuse gastritis and diverticulosis in the colon. She said they found 5 ulcers. She was given blood and discharged 10 days ago and started on a PPI. Her abixaban was discontinued. She represented yesterday with the cheif complaint of fatigue. She states that she had increasing dark stool, coffee ground in consistency. She reported fatigue and being tired. On arrival she had a hemoglobin of 7.7, FOBT(+). The pt denies any abdpminal pain, N/V. She denies any chest pain, SOB, fever/chills, cough, increased sputum production. - she was given 2U of pRBC yesterday and states that she has been feeling much better since then - denies dizziness, blurry vision, feeling lightheaded - pt had EGD yesterday , report pending - Exam Vitals: Temp Pulse Resp BP Pulse Ox 98.3 F 78 15 127/66 94 06/04/18 07:12 06/04/18 07:12 06/04/18 07:12 06/04/18 07:12 06/04/18 07:12 Exam: General: AOx3, no acute distress, laying in bed Skin: Pale but warm and supple. HEENT: Moist mucous membranes. No conjunctivae pallor. Neck: No lymphadenopathy. No JVD. No carotid bruits. No palpable thyroid. Chest: Normal thoracic expansion. Normal breath sounds. Clear to auscultation. Heart:: CTA, no MRG, RRR Abdomen: Non-distended, soft and non-tender to palpation. No rebound or guard ing. Obese. Extremities: No clubbing, cyanosis or edema. No calf tenderness. Normal distal pulses. Normal inspection. Neurological: AOx3 No focal deficits. Psych: Affect and mood appropriate - Assessment and Plan (1) Chronic CHF (congestive heart failure) Current Visit: No Status: Chronic Assessment and Plan: NOT in acute exacerbation - last ECHO 02/2018 showed LVEF 60% . (2) CAD (coronary artery disease) Current Visit: Yes Status: Chronic Assessment and Plan: Known CAD with s/p 1 stent - continue statin therapy, lopressor (3) HTN (hypertension) Current Visit: Yes Status: Chronic Assessment and Plan: BP 127/66 - stable and well controlled - continue home meds (4) DVT prophylaxis Current Visit: Yes Status: Acute Assessment and Plan: SCD's (5) Anemia Current Visit: Yes Status: Chronic Assessment and Plan: Most likely secondary to GIB - continue fluids - goal Hg >8 - GI consulted - see plan as above for GIB . (6) Weakness Current Visit: Yes Status: Acute Assessment and Plan: Secondary to anemia, see plan as above - improving (7) A-fib Current Visit: Yes Status: Chronic Assessment and Plan: CHADVASc of 6 , HASBLED of 3 - pt had Eliquis d/c secondary to GIB - pt is currently in NSR - continue telemetry monitoring (8) Diabetes Current Visit: Yes Status: Chronic Assessment and Plan: Insulin sliding scale, increased levemir to 10U BID - glucose 185 this morning (9) GI bleed Current Visit: Yes Status: Acute Assessment and Plan: Pt recently admitted for GIB secondary to Eliquis use - pt was started on anticoagulation for newly diagnosed a fib CHADVASc of 6, HASBLED of 3 - currently, the pt has anticoagulation held On last admission, pt had EGD and colonoscopy which showed extensive ulceration and diverticulosis At admission, pt had a hemoglobin of 7.7. 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 and high risk for bleeding Plan: - continue to monitor H&H q6hr today - aspirin held - GI consulted Saccharomyces cerevis antibody, MPO/PR3 ANCA antibody, stool panels ordered and pending recommendations appreciated ?small bowel pill endoscopy - cardiac diet - IV protonix 40mg q12hr - disposition: stable H&H, weakness resolve - Time Spent with Patient Total time spent is greater than 50% in coordination of care (as documented) at patient's floor/unit and/or counseling patient: less than 15 minutes Plan of Care Discussed with: patient Internal Medicine: Result - Labs CBC & Chem 7: 06/04/18 08:49 06/04/18 05:38 Labs: Short CBC 06/03/18 06/03/18 06/03/18 Range/Units 11:35 13:39 19:24 WBC (4.3-11.1) K/mcL Hgb 6.9 L 6.5 L 6.8 L (11.5-15.4) g/dL Hct 22.2 L 21.0 L 22.0 L (35.3-44.9) % Plt Count (140-400) K/mcL Neutrophils # (1.6-8.9) K/mcL 06/04/18 Range/Units 05:38 WBC 6.9 (4.3-11.1) K/mcL Hgb 9.6 L D (11.5-15.4) g/dL Hct 28.9 L (35.3-44.9) % Plt Count 315 (140-400) K/mcL Neutrophils # 4.1 (1.6-8.9) K/mcL BMP 06/04/18 05:38 Sodium 139 Potassium 4.1 Chloride 105 Carbon Dioxide 28 BUN 13 Creatinine 0.88 Glucose 185 H Calcium 9.1 - ABG Interpretation ABG results: PT/INR, D-dimer PT 11.8 Seconds (9.4-12.1) 06/02/18 19:16 Consult Discharge Plan - Plan Referrals: Radha Purcell, PhD [Primary Care Provider] - <Joel Johns - Last Filed: 06/04/18 11:53> Hospitalist Progress Note - Encounter Date of Encounter: 06/04/18 Time of Encounter: 09:35 - Exam Vitals: Temp Pulse Resp BP Pulse Ox 98.3 F 78 15 127/66 94 06/04/18 07:12 06/04/18 07:12 06/04/18 07:12 06/04/18 07:12 06/04/18 07:12 - Assessment and Plan (1) Chronic CHF (congestive heart failure) Current Visit: No Status: Chronic (2) CAD (coronary artery disease) Current Visit: Yes Status: Chronic (3) HTN (hypertension) Current Visit: Yes Status: Chronic (4) DVT prophylaxis Current Visit: Yes Status: Acute (5) Anemia Current Visit: Yes Status: Chronic (6) Weakness Current Visit: Yes Status: Acute (7) A-fib Current Visit: Yes Status: Chronic (8) Diabetes Current Visit: Yes Status: Chronic (9) GI bleed Current Visit: Yes Status: Acute - Time Spent with Patient Total time spent is greater than 50% in coordination of care (as documented) at patient's floor/unit and/or counseling patient: Internal Medicine: Result - Labs CBC & Chem 7: 06/04/18 08:49 06/04/18 05:38 Labs: Short CBC 06/03/18 06/03/18 06/03/18 Range/Units 11:35 13:39 19:24 WBC (4.3-11.1) K/mcL Hgb 6.9 L 6.5 L 6.8 L (11.5-15.4) g/dL Hct 22.2 L 21.0 L 22.0 L (35.3-44.9) % Plt Count (140-400) K/mcL Neutrophils # (1.6-8.9) K/mcL 06/04/18 06/04/18 Range/Units 05:38 08:49 WBC 6.9 (4.3-11.1) K/mcL Hgb 9.6 L D 10.5 L (11.5-15.4) g/dL Hct 28.9 L 31.5 L (35.3-44.9) % Plt Count 315 (140-400) K/mcL Neutrophils # 4.1 (1.6-8.9) K/mcL BMP 06/04/18 05:38 Sodium 139 Potassium 4.1 Chloride 105 Carbon Dioxide 28 BUN 13 Creatinine 0.88 Glucose 185 H Calcium 9.1 - ABG Interpretation ABG results: PT/INR, D-dimer PT 11.8 Seconds (9.4-12.1) 06/02/18 19:16 - Attending Attestation I saw evaluated and examined this patient and my medical decision-making was reviewed with the Resident Physician , Elvis Dunn. I agree with the documented findings, disposition and treatment plan as described except to any changes set forth below. We independently had [id number] contact with the patient. Patient is sitting up in chair. Reports that she has had dark colored stools again. No hematemesis. Complains of generalized weakness but overall she feels better than yesterday after she received her blood transfusion. Denies any chest pain or palpitations. No nausea or vomiting. Underwent upper GI endoscopy yesterday. Report is not available but patient states that she was found to have some ulcers and had some procedure done to stop bleeding. On exam, patient is awake and alert. Pallor present. Heart sounds are normal. Regular rate and rhythm. Breath sounds are normal. No wheezing. Abdomen is soft, nontender. Acute upper GI bleed with melena: Status post upper GI endoscopy. Patient reportedly had AV malformations and had cauterization/clipping done. We will review report when available. For now continue twice-daily PPI. Gastroenterology recommends monitoring the patient in the hospital to monitor for bleeding as she is at high risk for bleeding due to multiple AV mal formations. Patient is also to undergo capsule endoscopy as outpatient. Diabetes mellitus type 2: Blood sugars have improved. Will continue current insulin regimen. Anemia: Acute on chronic due to GI bleed. Patient's blood counts have improved after she received blood transfusion. We will monitor closely. Chronic congestive heart failure: Diastolic. Not in acute exacerbation. Moderate risk for complications. <Elvis Dunn S - Last Filed: 06/04/18 11:15> (1) Chronic CHF (congestive heart failure) Qualifiers: Heart failure type: unspecified Qualified Code(s): I50.9 - Heart failure, unspecified (2) CAD (coronary artery disease) Qualifiers: Coronary Disease-Associated Artery/Lesion type: [place] artery [place] vs. transplanted heart: [place] heart Associated angina: without angina Qualified Code(s): I25.10 - Atherosclerotic heart disease of [place] coronary artery without angina pectoris (3) HTN (hypertension) Qualifiers: Hypertension type: essential hypertension Qualified Code(s): I10 - Essential (primary) hypertension (5) Anemia Qualifiers: Anemia type: iron deficiency Iron deficiency anemia type: chronic blood loss Qualified Code(s): D50.0 - Iron deficiency anemia secondary to blood loss (chronic) (7) A-fib Qualifiers: Atrial fibrillation type: paroxysmal Qualified Code(s): I48.0 - Paroxysmal atrial fibrillation (8) Diabetes Qualifiers: Diabetes mellitus type: type 2 Diabetes mellitus alf insulin use: with salvage determiner use Diabetes mellitus complication status: with unspecified complications Qualified Code(s): E11.8 - Type 2 diabetes mellitus with unspecified complications; Z79.4 - terminal carman (current) use of insulin (9) GI bleed Qualifiers: GI bleed type/associated pathology: unspecified gastrointestinal hemorrhage type Qualified Code(s): K92.2 - Gastrointestinal hemorrhage, unspecified <Joel Johns - Last Filed: 06/04/18 11:53> (1) Chronic CHF (congestive heart failure) Qualifiers: Heart failure type: unspecified Qualified Code(s): I50.9 - Heart failure, unspecified (2) CAD (coronary artery disease) Qualifiers: Coronary Disease-Associated Artery/Lesion type: [place] artery [place] vs. transplanted heart: [place] heart Associated angina: without angina Qualified Code(s): I25.10 - Atherosclerotic heart disease of [place] coronary artery without angina pectoris (3) HTN (hypertension) Qualifiers: Hypertension type: essential hypertension Qualified Code(s): I10 - Essential (primary) hypertension (5) Anemia Qualifiers: Anemia type: iron deficiency Iron deficiency anemia type: chronic blood loss Qualified Code(s): D50.0 - Iron deficiency anemia secondary to blood loss (chronic) (7) A-fib Qualifiers: Atrial fibrillation type: paroxysmal Qualified Code(s): I48.0 - Paroxysmal atrial fibrillation (8) Diabetes Qualifiers: Diabetes mellitus type: type 2 Diabetes mellitus alf insulin use: with salvage determiner use Diabetes mellitus complication status: with unspecified complications Qualified Code(s): E11.8 - Type 2 diabetes mellitus with unspecified complications; Z79.4 - terminal carman (current) use of insulin (9) GI bleed Qualifiers: GI bleed type/associated pathology: unspecified gastrointestinal hemorrhage type Qualified Code(s): K92.2 - Gastrointestinal hemorrhage, unspecified
[2018-06-04] MEDS: ALPRAZolam 0.5 MG TABLET PO PRN ×2 (08:39→20:29)
[2018-06-04] MEDS ORDERED: Insulin DETEMIR 100 UNIT/ML X5UNITS SQ SCH (08:45)
[2018-06-04] MEDS ORDERED: Insulin DETEMIR 100 UNIT/ML X5UNITS SQ ONE (08:47)
[2018-06-04 09:04] LABS: Hematocrit 31.5 % (35.3-44.9); Hemoglobin 10.5 g/dL (11.5-15.4)
[2018-06-04 12:12] LABS: Adenovirus F 40/41 PCR Not detected (Not detect); Astrovirus PCR Not detected (Not detect); C.difficile Toxin A/B by PCR Not detected (Not detect); Campylobacter by PCR Not detected (Not detect); Cryptosporidium by PCR Not detected (Not detect); Cyclospora cayetanensis PCR Not detected (Not detect); E. coli O157 by PCR Not detected (Not detect); Entamoeba histolytica PCR Not detected (Not detect); Enteroaggregative E.coli(EAEC) Not detected (Not detect); Enteropathogenic E.coli(EPEC) Not detected (Not detect); Enterotoxigenic E.coli (ETEC) Not detected (Not detect); Giardia lamblia PCR Not detected (Not detect); Norovirus GI/GII PCR Not detected (Not detect); Plesiomonas shigelloides PCR Not detected (Not detect); Rotavirus A PCR Not detected (Not detect); Salmonella PCR Not detected (Not detect); Sapovirus PCR Not detected (Not detect); Shig/EnteroinvasiveE coli EIEC Not detected (Not detect); Shigalike tox-prod E coli STEC Not detected (Not detect); Vibrio PCR Not detected (Not detect); Vibrio cholerae PCR Not detected (Not detect); Yersinia enterocolitica PCR Not detected (Not detect)
[2018-06-04 15:17] LABS: Hematocrit 29.6 % (35.3-44.9); Hemoglobin 9.5 g/dL (11.5-15.4)
--- NOTE | 2018-06-04 15:30 | Gastroenterology Progress Note ---
<RadhaMartín - Last Filed: 06/04/18 15:27> Date of Encounter: 06/04/18 Time of Encounter: 15:28 - Assessment and plan (1) Melena Current Visit: Yes Status: Acute Assessment and plan: Patient underwent EGD yesterday revealed multiple AVMs, likely source of patient's bleeding. Several of these were cauterized however there may be further EGDs within the small bowel. Hemoglobin stable. Patient will need c apsule endoscopy as an outpatient (2) Anemia Current Visit: Yes Status: Chronic Assessment and plan: Likely due to chronic blood loss with melena as stated above. Continue iron supplementation. Qualifiers: Anemia type: iron deficiency Iron deficiency anemia type: chronic blood loss Qualified Code(s): D50.0 - Iron deficiency anemia secondary to blood loss (chronic) (3) H. pylori infection Current Visit: Yes Status: Acute Assessment and plan: Patient had H. pylori diagnosed on EGD at the end of April. Had been on PPI, duodenal biotic therapy, completed Flagyl and had doxycycline remaining. We will restart this to complete course. - Time Spent With Patient Total time spent is greater than 50% in coordination of care (as documented) at patient's floor/unit and/or counseling patient: - Subjective Interval history: Patient seen and examined at bedside. She states that she feels better today. She feels like her weakness is much improved. 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 She denies any pain, nausea, vomiting. - Constitutional Vitals: Temp Pulse Resp BP Pulse Ox 98.1 F 76 14 122/70 97 06/04/18 15:13 06/04/18 15:13 06/04/18 15:13 06/04/18 15:13 06/04/18 15:13 General appearance: Present: A&O X 3, pleasant, no acute distress - Respiratory Respiratory exam: Present: CTAB. Absent: rales, rhonchi, wheezes - Cardiovascular Cardiovascular exam: Present: RRR. Absent: gallop, rubs, systolic murmur - GI/Abdominal GI/Abdominal exam: Present: normal bowel sounds, soft. Absent: distended, tenderness Results - Labs CBC & Chem 7: 06/04/18 14:47 06/04/18 05:38 Labs: Last Result Calcium 9.1 mg/dL (8.6-10.3) 06/04/18 05:38 Iron 137 mcg/dL (50-170) 06/04/18 05:38 % Saturation 53 % (15-50) H 06/04/18 05:38 Transferrin 183 mg/dL (203-362) L 06/04/18 05:38 Ferritin 28 ng/mL (10-120) 06/04/18 05:38 C-Reactive Protein < 5 mg/L (Less than 10) 06/03/18 09:49 Entire Visit Hgb 9.5 g/dL (11.5-15.4) L 06/04/18 14:47 Hct 29.6 % (35.3-44.9) L 06/04/18 14:47 PT 11.8 Seconds (9.4-12.1) 06/02/18 19:16 Ferritin 28 ng/mL (10-120) 06/04/18 05:38 - ABG ABG results: PT/INR, D-dimer PT 11.8 Seconds (9.4-12.1) 06/02/18 19:16 Consult Discharge Plan - Plan Referrals: Radha Purcell, PhD [Primary Care Provider] - <Dima Alvarez - Last Filed: 06/04/18 16:55> Date of Encounter: 06/04/18 - Time Spent With Patient Total time spent is greater than 50% in coordination of care (as documented) at patient's floor/unit and/or counseling patient: - Constitutional Vitals: Temp Pulse Resp BP Pulse Ox 98.1 F 76 14 122/70 97 06/04/18 15:13 06/04/18 15:13 06/04/18 15:13 06/04/18 15:13 06/04/18 15:13 Results - Labs CBC & Chem 7: 06/04/18 14:47 06/04/18 05:38 Labs: Last Result Calcium 9.1 mg/dL (8.6-10.3) 06/04/18 05:38 Iron 137 mcg/dL (50-170) 06/04/18 05:38 % Saturation 53 % (15-50) H 06/04/18 05:38 Transferrin 183 mg/dL (203-362) L 06/04/18 05:38 Ferritin 28 ng/mL (10-120) 06/04/18 05:38 C-Reactive Protein < 5 mg/L (Less than 10) 06/03/18 09:49 Entire Visit Hgb 9.5 g/dL (11.5-15.4) L 06/04/18 14:47 Hct 29.6 % (35.3-44.9) L 06/04/18 14:47 PT 11.8 Seconds (9.4-12.1) 06/02/18 19:16 Ferritin 28 ng/mL (10-120) 06/04/18 05:38 - ABG ABG results: PT/INR, D-dimer PT 11.8 Seconds (9.4-12.1) 06/02/18 19:16 - Attending Attestation I examined this patient and my medical decision-making was reviewed with the Resident Physician. I agree with the documented findings, disposition and treatment plan as described except to the extent set forth below. Patient seen patient with the anemia due to chronic blood loss. On EGD was found to have small bowel AVM. Denies any abdominal pain and on examination abdomen is benign. 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 Recommendation: Capsule endoscopy as an outpatient
[2018-06-04] MEDS: Doxycycline 100 MG CAPSULE PO SCH (17:31)
--- NOTE | 2018-06-04 20:02 | Electrocardiograph Report ---
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
[2018-06-04 20:57] LABS: Hematocrit 28.4 % (35.3-44.9); Hemoglobin 9.3 g/dL (11.5-15.4)
[2018-06-04] MEDS ORDERED: Doxycycline 100 MG CAPSULE PO SCH (23:00)
[2018-06-05 06:24] LABS: Basophils % 0.6 %; Eosinophils % 5.2 %; Hemoglobin 9.4 g/dL (11.5-15.4); Immature Granulocytes % 0.3 % (0-4); Lymphocytes # 1.8 K/mcL (0.6-4.6); Lymphocytes % 28.1 %; Mean Corpuscular HGB Conc 32.4 g/dL (31.6-35.5); Mean Corpuscular Hemoglobin 29.6 pg (28.0-33.3); Mean Corpuscular Volume 91.2 fL (83.0-100.0); Mean Platelet Volume 9.2 fL (9.4-12.4); Monocytes % 10.4 %; Neutrophils # 3.6 K/mcL (1.6-8.9); Platelet Count 304 K/mcL (140-400); Red Blood Count 3.18 M/mcL (3.82-4.97); Red Cell Distribution Width 16.9 % (11.5-14.5); Segmented Neutrophils % 55.4 %
[2018-06-05 06:25] LABS: Eosinophils # 0.3 K/mcL (0.0-0.6); Monocytes # 0.7 K/mcL (0.0-1.3)
[2018-06-05] MEDS: Doxycycline 100 MG CAPSULE PO SCH (06:42)
[2018-06-05 07:50] LABS: BUN/Creatinine Ratio 16 (6-26); Blood Urea Nitrogen 15 mg/dL (8-23); Calcium 9.1 mg/dL (8.6-10.3); Carbon Dioxide 30 mEq/L (23-29); Chloride 101 mEq/L (98-107); Glucose 218 mg/dL (70-105); Osmolality,Calculated 291 (280-300); Sodium 137 mEq/L (136-145); eGFR For Non-African Americans 58 (> 60)
[2018-06-05] MEDS: Insulin LISPRO 300 UNITS/3 ML VIAL SQ SCH ×2 (09:09→12:32)
[2018-06-05] MEDS: Insulin DETEMIR 100 UNIT/ML X5UNITS SQ SCH (09:09)
[2018-06-05] MEDS: Cholecalciferol (D-3) 1,000 UNIT TABLET PO SCH (09:09)
[2018-06-05] MEDS: Furosemide 20 MG TABLET PO SCH (09:11)
[2018-06-05] MEDS: ALPRAZolam 0.5 MG TABLET PO PRN (09:12)
--- NOTE | 2018-06-05 09:59 | Discharge Summary ---
<Elvis Dunn S - Last Filed: 06/05/18 11:40> - NOTES TO OUTPATIENT PROVIDER Notes to Outpatient Provider: Follow up with GI for outpatient pill endoscopy. Refills for PPI and carafate. Orders not resulted at time of discharge: Pending orders 06/02/18 Transfusion Reaction [BBK] Routine 06/03/18 09:49 MPO/PR3 (ANCA) Antibodies Routine Saccharomyces cerevisiae Abs Routine Date of Encounter: 06/05/18 Time of Encounter: 09:56 - Discharge Diagnosis (1) GI bleed Priority: Primary Status: Acute Qualifiers: GI bleed type/associated pathology: unspecified gastrointestinal hemorrhage type Qualified Code(s): K92.2 - Gastrointestinal hemorrhage, unspecified (2) Anemia Priority: Secondary Status: Chronic Qualifiers: Anemia type: iron deficiency Iron deficiency anemia type: chronic blood loss Qualified Code(s): D50.0 - Iron deficiency anemia secondary to blood loss (chronic) (3) Melena Priority: Primary Status: Acute (4) H. 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 She was admitted recently for symptomatic anemia secondary to GIB after being started on Eliquis for a fib. She had a colonoscopy and EGD, which showed diffuse gastritis and diverticulosis in the colon. She said they found 5 ulcers. She was given blood and discharged 10 days ago and started on a PPI. Her abixaban was discontinued. She represented yesterday with the cheif complaint of fatigue. She states that she had increasing dark stool, coffee ground in consistency. She reported fatigue and being tired. On arrival she had a hemoglobin of 7.7, FOBT(+). 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 She denies any chest pain, SOB, fever/chills, cough, increased sputum production. - she was given 2U of pRBC while at [facility] and states that she has been feeling much better since then - denies dizziness, blurry vision, feeling lightheaded H&H has since been stable: 10.5, 9.5, 9.3 - pt is stable for discharge - hemodynamically stable - pt wishes to return home instead of ECF placement Pt to follow up with PCP in 1 wk - pt to follow up with GI for pill endoscopy study - will need refills for PPI and carafate - accharomyces cerevis antibody, MPO/PR3 ANCA antibody are still pending Discharge discussed with: patient Time spent discussing smoking cessation with patient: 3 to 10 minutes - Time Spent with Patient Total time spent providing and/or coordinating discharge services: Less than 30 minutes - Discharge Medications Prescriptions: Omeprazole [PriLOSEC] 20 mg PO BIDAC 30 Days #60 cap Sucralfate [Carafate] 1 gm PO QIDAC 30 Days #120 tablet Home Medications: ALPRAZolam [Xanax 0.5 MG Tablet] 0.5 mg PO TID PRN 02/14/18 [History] Ascorbic Acid [Vitamin C] 500 mg PO DAILY 02/14/18 [History] Aspirin Enteric Coated [Aspirin EC] 81 mg PO DAILY 02/14/18 [History] Atorvastatin [Lipitor] 40 mg PO HS 02/14/18 [History] Cholecalciferol (D-3) [Vitamin D] 5,000 unit PO DAILY 02/14/18 [History] Fish Oil/Dha/Epa [Fish Oil 1,200 mg Fish Oil] 1 cap PO BID 02/14/18 [History] Furosemide [Lasix] 20 mg PO DAILY 02/14/18 [History] Insulin Glargine,Hum.rec.anlog [Lantus Solostar] 5 units SQ BID 02/14/18 [History] Metoprolol [Lopressor] 25 mg PO DAILY 02/14/18 [History] Vitamin B Complex Vit C No.4 [Super B Complex] 1 tab PO DAILY 02/14/18 [History] Acetaminophen [Tylenol] 650 mg PO Q6HR PRN tablet 03/19/18 [Rx] Nitroglycerin 0.4 mg SL Q5MIN PRN tab.subl 03/19/18 [Rx] Polyethylene Glycol 3350 [MiraLAX] 17 gm PO DAILY PRN powd.pack 03/19/18 [Rx] glipiZIDE [Glucotrol] 10 mg PO BID tablet 03/19/18 [Rx] Insulin LISPRO [HumaLOG] 0 units SQ TIDAC PRN 05/20/18 [History] Sitagliptin Phosphate [Januvia] 50 mg PO DAILY 05/20/18 [History] Ferrous Sulfate 325 mg PO DAILY@0800 30 Days #30 tablet 05/24/18 [Rx] Omeprazole [PriLOSEC] 20 mg PO BIDAC 30 Days #60 cap 06/05/18 [Rx] Sucralfate [Carafate] 1 gm PO QIDAC 30 Days #120 tablet 06/05/18 [Rx] Allergies/Adverse Reactions: Allergy/AdvReac Type Severity Reaction Status Date / Time Penicillins Allergy Anaphylaxis Verified 06/02/18 18:56 Date of admission: 06/02/18 20:22 Primary care physician: Radha Purcell Consults: 06/02/18 21:38 Consult to Gastroenterology [CONS] Routine Consulting Provider: Gastroenterology Ruba Reason for Consult: patient recently seen for anemia due to GI bleed s/p double scope. presenting with ongoing dark stool and dropping hgb. Call Completed: No Discharging clinician: Elvis Dunn Anticipated date of discharge: 06/05/18 - Constitutional Vitals: Temp Pulse Resp BP Pulse Ox 98.1 F 82 14 156/77 94 06/05/18 06:14 06/05/18 06:14 06/05/18 06:14 06/05/18 06:14 06/05/18 06:14 Exam: General: AOx3, no acute distress, laying in bed Skin: Pale but warm and supple. HEENT: Moist mucous membranes. No conjunctivae pallor. Neck: No lymphadenopathy. No JVD. No carotid bruits. No palpable thyroid. Chest: Normal thoracic expansion. Normal breath sounds. Clear to auscultation. Heart:: CTA, no MRG, RRR Abdomen: Non-distended, soft and non-tender to palpation. No rebound or guarding. Obese. Extremities: No clubbing, cyanosis or edema. No calf tenderness. Normal distal pulses. Normal inspection. Neurological: AOx3 No focal deficits. Psych: Affect and mood appropriate - Patient Status Disposition: Home, Self-Care Condition: Fair Functional capacity at discharge: uses cane/walker Overall status at discharge: patient is progressing back to baseline - Discharge Instructions Follow Up With: Dima Alvarez MD [Partnered Physician] - 06/12/18 Radha Purcell, PhD [Primary Care Provider] - 06/12/18 - Diet and Activity Activity: increase activity as tolerated Diet: low fat, low cholesterol, low salt diet <Joel Johns - Last Filed: 06/05/18 11:57> Orders not resulted at time of discharge: Pending orders 06/02/18 Transfusion Reaction [BBK] Routine 06/03/18 09:49 MPO/PR3 (ANCA) Antibodies Routine Saccharomyces cerevisiae Abs Routine Date of Encounter: 06/05/18 Time of Encounter: 09:50 - Discharge Diagnosis (1) Anemia Status: Chronic Qualifiers: Anemia type: iron deficiency Iron deficiency anemia type: chronic blood loss Qualified Code(s): D50.0 - Iron deficiency anemia secondary to blood loss (chronic) (2) Diverticulosis of sigmoid colon Status: Chronic (3) Diabetes Status: Chronic Qualifiers: Diabetes mellitus type: type 2 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 pylori infection Status: Acute (7) A-fib Status: Chronic Qualifiers: Atrial fibrillation type: chronic Qualified Code(s): I48.2 - Chronic atrial fibrillation (8) Hypertension Status: Chronic Qualifiers: Hypertension type: essential hypertension Qualified Code(s): I10 - Essential (primary) hypertension (9) DVT prophylaxis Status: Acute Hospital course: Ms. Frankel is a 82 year old female - Time Spent with Patient Total time spent providing and/or coordinating discharge services: Less than 30 minutes (10 min) Date of admission: 06/02/18 20:22 Primary care physician: Radha Purcell Consults: 06/02/18 21:38 Consult to Gastroenterology [CONS] Routine Consulting Provider: Gastroenterology Ruba Reason for Consult: patient recently seen for anemia due to GI bleed s/p double scope. presenting with ongoing dark stool and dropping hgb. Call Completed: No - Constitutional Vitals: Temp Pulse Resp BP Pulse Ox 98.5 F 95 15 102/55 92 06/05/18 10:20 06/05/18 10:20 06/05/18 10:20 06/05/18 10:20 06/05/18 10:20 - Attending Attestation I saw evaluated and examined this patient and my medical decision-making was reviewed with the Resident Physician, Elvis Dunn. I agree with the documented findings, disposition and treatment plan as described except to any changes set forth below. We independently had [id number]-it-pijc contact with the patient. 82-year-old female patient with history of chronic diastolic congestive heart failure, hypertension, diabetes, hyperlipidemia was hospitalized here with anemia and GI bleed. Patient had been started on Eliquis for atrial fibrillation recently. On arrival to the ER, patient's hemoglobin was 7.7. Patient continued to have melanotic stools and her hemoglobin dropped down to 6.5 on a day 2. 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 These were treated with endoscopy but patient may have continued daily malformations beyond January. As such GI recommends capsule endoscopy as outpatient. 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 She is advised to return to the ER if she develops further episodes of bleeding. She will follow up with GI for capsule endoscopy. Her hemoglobin levels have remained stable since then. She has been cleared for discharge by GI. She has not had any further episodes of melena in the past 24 hours. On exam today, patient is awake and alert. Is in good spirits. Appears pale. S1 and S2 normal. Breath sounds are normal. No pedal edema noted.
[2018-06-05 10:24] VITALS: BP 102/55
[2018-06-06 14:46] LABS: Saccharomyces cerevisiae IgA 22.9 Units (0.0-24.9)
== END 2018-06-05 13:45 | disposition home or self-care (01) ==
LOC: 3ANU 18:50 → EMEROOARM 18:50 → SUATTDRO 20:22 → 3ANU 21:40
PROVIDERS: ADMIT Internal Medicine; ATTEND Internal Medicine

== ENCOUNTER 2020-03-13 15:36 | Observation (INO) ==
[2020-03-13] MEDS ORDERED: Naloxone 0.4 MG/ML INJ IVP PRN (19:27)
[2020-03-13] MEDS ORDERED: Dextrose Gel 15 GM/37.5 ML TUBE PO PRN ×2 (20:37)
[2020-03-13] MEDS ORDERED: D5% in Water 1,000 ML IVC PRN (20:37)
[2020-03-13] MEDS ORDERED: *HR* Dextrose 50 % in Water (Vial) 50 ML VIAL IVP PRN (20:37)
[2020-03-14] MEDS ORDERED: Insulin LISPRO 300 UNITS/3 ML VIAL SQ SCH
[2020-03-14 00:39] VITALS: BP 133/71
[2020-03-14] MEDS ORDERED: Ertapenem 1,000 MG in 0.9 % Sodium Chloride Mini Bag 100 ML IVPB SCH (09:00)
== END 2020-03-14 04:09 | disposition short-term general hospital (02) ==
LOC: 3NENU
PROVIDERS: ADMIT Internal Medicine; ATTEND Internal Medicine